=== PATIENT | male | born 1950 | race Caucasian/White ===

== ENCOUNTER 2023-10-08 19:37 | Inpatient (IN) | payer MEDICARE, SELFPAY ==
--- NOTE | 2023-10-08 | ECG_ITS ---
Test Reason : SOB Blood Pressure : / mmHG Vent. Rate : 076 BPM Atrial Rate : 076 BPM P-R Int : 188 ms QRS Dur : 100 ms QT Int : 418 ms P-R-T Axes : 008 047 045 degrees QTc Int : 470 ms Sinus rhythm with occasional Premature ventricular complexes Otherwise normal ECG No previous ECGs available Referred By: Generic ED Physician Electronically Signed By:PINKY PHILIP MD
--- NOTE | ~2023-10-08 | CT_ITS ---
EXAMINATION: CT ABDOMEN AND PELVIS WITH CONTRAST CLINICAL INFORMATION: Left lower quadrant pain. COMPARISON: None available. TECHNIQUE: Multidetector volumetric images were obtained from the superior aspect of the liver through the pubic symphysis following administration 85 mL of Omnipaque 350 intravenous contrast. Sagittal and coronal reformatted images were obtained on the technologist's workstation. Oral contrast: No This CT examination was performed using dose optimization techniques as appropriate, variously including the following: *Automated exposure control *Adjustment of mA and/or kV according to patient size (this includes techniques or standardized protocols for targeted exams where dose is matched to indication/reason for exam; i.e. extremities or head) *Use of iterative reconstruction technique DLP: 709 mGy-cm FINDINGS: LUNG BASES: Moderate hiatal hernia. LIVER, GALLBLADDER, AND BILIARY TREE: The liver is normal in size. No focal hepatic lesion or biliary ductal dilatation is present. The gallbladder is unremarkable with no evidence of radiopaque gallstones, gallbladder wall thickening, or obvious pericholecystic inflammatory changes. PANCREAS: 1.6 x 1.7 cm cystic lesion in the tail the pancreas. No ductal dilatation. SPLEEN: Not enlarged. ADRENAL GLANDS: No adrenal mass. KIDNEYS AND URETERS: The kidneys are symmetric in size and enhancement. No hydronephrosis or perinephric fluid collection. 2.8 x 3.0 cm upper pole left renal cyst. No further imaging follow-up is needed. BLADDER: Unremarkable. GASTROINTESTINAL TRACT: There is dilatation of small bowel loops in the midabdomen measuring up to 3.3 cm with interloop fluid and flocculation of contrast. The transition appears to be in the right lower quadrant. Small abdominopelvic ascites. The colon is relatively decompressed. Diverticular disease of the descending and sigmoid colon. ABDOMINAL WALL: No significant hernia is appreciated. LYMPH NODES: No bulky lymphadenopathy. VASCULAR: Normal caliber abdominal aorta. PELVIC VISCERA: Enlarged prostate gland. OSSEOUS STRUCTURES: No destructive bone lesions. CT/CT abdomen pelvis w IV con IMPRESSION: Small bowel obstruction with interloop fluid flocculation of contrast. There is small abdominopelvic ascites. The transition appears to be in the right lower quadrant. 1.6 x 1.7 cm cystic lesion in the tail the pancreas. MRI/MRCP is recommended for further characterization. Electronically signed by: Michelet Yanes MD 11/27/2023 09:56 AM EDT
--- NOTE | ~2023-10-08 | XR_ITS ---
EXAMINATION: XR CHEST CLINICAL INFORMATION: Nasogastric tube placement. COMPARISON: None available. TECHNIQUE: AP portable view of the chest was obtained. FINDINGS: Enteric catheter seen traversing into the stomach with sidehole below the diaphragm. Heart normal size. No evidence of pulmonary edema. No pneumothorax or pleural effusion. Discoid atelectasis or scar is seen about the mid left lung. XR/XR chest 1V IMPRESSION: Nasogastric tube in place. No acute disease.
[2023-10-08 19:52] VITALS: PULSE 74; RESP 16; TEMP 36.2; O2SAT 100; BMI 28.8
[2023-10-08 20:16] LABS: MANUAL DIFF FLAG NO
[2023-10-08 20:17] LABS: Basophils Percent Auto 0.2 % (0-2); Eosinophils Percent Auto 0.1 % (0-4); Hematocrit 37.5 % (42.0-52.0); Hemoglobin 13.3 g/dl (14.0-18.0); Imm Gran Abs Auto 0.04 X10*3/uL (0.00-0.03); Imm Gran Pct Auto 0.3 % (0.0-0.4); Lymphocytes Absolute Auto 1.4 X10*3/uL (1.2-4.9); Lymphocytes Percent Auto 9.9 % (20-40); Mean Corpuscular HGB Conc 35.5 g/dl (31.0-36.0); Mean Corpuscular Hemoglobin 33.5 pg (27.0-33.0); Mean Corpuscular Volume 94.5 fL (80.0-98.0); Mean Platelet Volume 9.6 fL (9.4-12.4); Monocytes Absolute Auto 0.5 X10*3/uL (0.1-1.2); Monocytes Percent Auto 3.6 % (2-11); Neutrophils Absolute Auto 12.1 x10*3/uL (2.0-8.3); Neutrophils Percent Auto 85.9 % (45-73); Platelet Count 233 X10*3/uL (160-400); Red Blood Count 3.97 X10*6/uL (4.60-5.80); Red Cell Distribution Width 13.6 % (11.0-16.0)
[2023-10-08 20:41] LABS: Alanine Aminotransferase 18 U/L (0-40); Albumin Level 4.3 g/dL (3.5-5.0); Alkaline Phosphatase 50 U/L (39-117); Anion Gap 18 (12-20); Aspartate Amino Transferase 23 U/L (5-37); Bilirubin Direct 0.3 mg/dL (0.0-0.5); Bilirubin Total 0.7 mg/dL (0.0-1.0); Blood Urea Nitrogen 27 mg/dL (9-16); Calcium 10.2 mg/dL (8.4-10.2); Carbon Dioxide 21 mmol/L (22-29); Chloride 105 mmol/L (96-108); Creatinine Clr Calc Pharmacy 69.9; Estimated Glomerular Filt Rate > 60; Glucose Random 124 mg/dL (60-115); Lipase 25 U/L (8-78); Sodium 140 mmol/L (135-145); Total Protein 7.2 g/dL (6.5-8.0)
--- NOTE | 2023-10-08 23:34 | ED_ITS ---
HPI - Abdominal Pain General Chief Complaint: Abdominal Pain Stated Complaint: Abd pain Time Seen by Provider: 10/08/23 23:27 Source: patient Mode of arrival: ambulatory Limitations: no limitations History of Present Illness ED Provider: danna LOPEZ narrative: Patient no significant abdominal complaints in the past had a elective right inguinal hernia surgery long time ago comes here for diffuse abdominal pain started yesterday around 1300 with nausea no vomiting had normal bowel movement earlier the day no fever no chills no shortness a breath patient does not feel hungry Related Data Allergies Allergy/AdvReac Type Severity Reaction Status Date / Time No Known Allergies Allergy Verified 10/08/23 19:54 Review of Systems Review of Systems Yes all other systems are reviewed and are negative [facility] Social History Social History Alcohol intake: current Alcohol intake frequency: holidays/special occasions only Smoked in Last 30 Days: No Use of substances other than those prescribed or required for medical reasons: Yes Substance Use Type: Marijuana Substance Use Frequency: Daily Advance Directives: No Advance Directives Information Provided: Yes Do you have a plan to hurt others: No Plan Physical Exam ED Vital Signs: Vital Signs - 24 hr 10/08/23 19:52 10/09/23 00:32 10/09/23 02:35 Temperature 97.2 F 98.3 F 98.4 F Pulse Rate 74 77 74 Respiratory Rate 16 16 16 Blood Pressure 157/79 H 150/75 H Pulse Oximetry 100 98 98 Oxygen Delivery Method Room Air Room Air Room Air 10/09/23 05:51 Temperature 98.1 F Pulse Rate 79 Respiratory Rate 16 Blood Pressure 146/71 H Pulse Oximetry 97 Oxygen Delivery Method Room Air BMI result Body Mass Index 28.8 Appearance: Alert. Oriented X3. No acute distress. Eyes: No pallor or icterus ENT: Pharynx normal. Oral Mucosa moist Neck: Normal inspection. Neck supple. CVS: Normal heart rate and rhythm. Pulses normal. Respiratory: No respiratory distress. Equal air entry bilateral, no wheezing/rales/rhonchi Abdomen: Soft and diffuse tenderness lower abdomen no rebound tenderness or guarding Bowel sounds are sluggish, no mass palpable, no CVA tenderness no inguinal hernia palpable Skin: Skin warm and dry. Normal skin color. Normal skin turgor. Extremities: No lower extremity edema. No calf tenderness Neuro: Oriented X 3. Medical Decision Making Medical Decision Making [facility] Narrative: Patient with acute onset of diffuse abdominal pain workup showed small bowel dilatation in the CT scan mainly in the ileum area but not distal ileum Is decompressed NG-tube placed only clear liquid 200 cc came out case discussed Dr. Clemens surgeon will come and see the patient Differential Diagnosis Differential Diagnoses: The differential diagnosis associated with the presentation includes Pancreatitis/small-bowel obstruction/ileus/ Admission/Observation Consideration of admission/observation: Escalation of care including admission/observation considered Lab Data [facility] Lab Attestation statement: I reviewed the patient's lab results. 10/08/23 20:11 10/08/23 20:11 Labs: Lab Results 10/08/23 10/09/23 Range/Units 20:11 05:44 WBC 14.0 H (4.8-10.8) X10*3/uL RBC 3.97 L (4.60-5.80) X10*6/uL Hgb 13.3 L (14.0-18.0) g/dl Hct 37.5 L (42.0-52.0) % MCV 94.5 (80.0-98.0) fL MCH 33.5 H (27.0-33.0) pg MCHC 35.5 (31.0-36.0) g/dl RDW 13.6 (11.0-16.0) % Plt Count 233 (160-400) X10*3/uL MPV 9.6 (9.4-12.4) fL Immature Gran % (Auto) 0.3 (0.0-0.4) % Neut % (Auto) 85.9 H (45-73) % Lymph % (Auto) 9.9 L (20-40) % [place] % (Auto) 3.6 (2-11) % Eos % (Auto) 0.1 (0-4) % Baso % (Auto) 0.2 (0-2) % Lymph # (Auto) 1.4 (1.2-4.9) X10*3/uL [place] # (Auto) 0.5 (0.1-1.2) X10*3/uL Eos # (Auto) 0.0 (0.0-0.4) X10*3/uL Baso # (Auto) 0.0 (0.0-0.2) X10*3/uL Abs Immat Gran (auto) 0.04 H (0.00-0.03) X10*3/uL Absolute Neuts (auto) 12.1 H (2.0-8.3) x10*3/uL Absolute Nucleated RBC 0.000 (0.0-0.012) X10*3/uL Nucleated RBC % (auto) 0.0 (0.0-0.2) /100WBC Sodium 140 (135-145) mmol/L Potassium 4.0 (3.3-5.1) mmol/L Chloride 105 (96-108) mmol/L Carbon Dioxide 21 L (22-29) mmol/L Anion Gap 18 (12-20) BUN 27 H (9-16) mg/dL Creatinine 1.02 (0.5-1.4) mg/dL Estim Creat Clear Calc 69.9 Estimated GFR > 60 Random Glucose 124 H (60-115) mg/dL Lactic Acid 1.1 (0.5-2.0) mmol/L Calcium 10.2 (8.4-10.2) mg/dL Total Bilirubin 0.7 (0.0-1.0) mg/dL Direct Bilirubin 0.3 (0.0-0.5) mg/dL AST 23 (5-37) U/L ALT 18 (0-40) U/L Alkaline Phosphatase 50 (39-117) U/L Total Protein 7.2 (6.5-8.0) g/dL Albumin 4.3 (3.5-5.0) g/dL Lipase 25 (8-78) U/L Independent Interpretation I performed an independent interpretation of an: EKG and CT Scan Interpretation: Normal sinus rhythm heart rate 76 beats per minute occasional PVCs no acute ST-T changes no acute ischemia Radiology Impression Discussion of test interpretation with radiology: I have reviewed the radiologist's reading. Medications Administered Discontinued Medications Generic Name Dose Route Start Last Admin Trade Name Freq PRN Reason Stop Dose Admin Sodium Chloride 1,000 mls @ 999 mls/hr 10/09/23 00:33 10/09/23 03:44 Ns IV 10/09/23 01:33 Infused .Q1H1M ONE Infusion Morphine Sulfate 4 mg 10/09/23 00:33 10/09/23 01:13 Morphine Sulfate 4 Mg/Ml Cartridge IVPUSH 10/09/23 00:34 4 mg ONCE ONE Administration Protocol Morphine Sulfate 4 mg 10/09/23 06:06 10/09/23 06:22 Morphine Sulfate 4 Mg/Ml Cartridge IVPUSH 10/09/23 06:07 4 mg ONCE ONE Administration Protocol Ondansetron HCl 4 mg 10/09/23 00:33 10/09/23 01:12 Ondansetron Hcl 4 Mg/2 Ml Vial IVPUSH 10/09/23 00:34 4 mg ONCE ONE Administration Ondansetron HCl 4 mg 10/09/23 06:19 10/09/23 06:32 Ondansetron Hcl 4 Mg/2 Ml Vial IVPUSH 10/09/23 06:20 4 mg ONCE ONE Administration Discharge Plan Discharge Clinical Impression: Small bowel obstruction Patient Disposition: Admitted As Inpatient Print Language: Lithuanian
[2023-10-09] VITALS (16 sets, daily range): BP systolic 120–160; BP diastolic 68–89; PULSE 74–93; RESP 16–20; TEMP 36.3–37.3; O2SAT 96–100
[2023-10-09] MEDS: ondansetron HCL 4 MG/2 ML VIAL IVPUSH ×3 (01:12→12:19)
[2023-10-09] MEDS: Morphine Sulfate 4 MG/ML CARTRIDGE IVPUSH ×2 (01:13→06:22)
[2023-10-09] MEDS: 0.9 % Sodium Chloride 1,000 ML 999 ML IV (01:13)
[2023-10-09 06:22] LABS: Lactic Acid 1.1 mmol/L (0.5-2.0)
[2023-10-09] MEDS: iohexoL 350 MG/ML 100 ML INFUS..BTL IV (08:20)
--- NOTE | 2023-10-09 09:41 | PHA.MEDREC ---
Pharmacy Consult ? Medication Reconciliation Pharmacy has completed the medication reconciliation. Spoke to patient around 08:40 this morning, he wasn't sure what he was taking for meds but he stated he goes to the [facility] in [place]. I faxed over a request of his medications around 09:00 and still haven't received anything.
--- NOTE | 2023-10-09 10:16 | PHA.MEDREC ---
Pharmacy Consult ? Medication Reconciliation Pharmacy has completed the medication reconciliation. [facility]
--- NOTE | 2023-10-09 11:10 | PC.NURSE ---
rpeort recieved from previous RN, patient resting comfortably on stretcher, NG tube attached to intermittent wall suction, draining clear fluid at this time. patient endorsing some discomfort, awaiting surgical consult at this time
[2023-10-09] MEDS: Lactated Ringers 1,000 ML 125 ML IVCONT (11:24)
[2023-10-09] MEDS: Lactated Ringers 1,000 ML 100 ML IVCONT ×2 (12:17→16:00)
[2023-10-09] MEDS: HYDROmorphone HCl 1 MG/ML SYRINGE 0.5 MG IVPUSH (12:21)
--- NOTE | 2023-10-09 13:14 | PC.NURSE ---
report given to short stay surgery
--- NOTE | 2023-10-09 13:29 | P.HPGS_ITS ---
History of Present Illness History of Present Illness Date of Service: 10/09/23 Chief complaint: SBO Narrative: Prieto Olivares is a 72 year old male with PMH significant for HTN, hyperlipidemia, gout who presented to the ED with complaints of acute onset of abdominal pain. He developed diffuse abdominal pain yesterday afternoon. The pain was associated with nausea without vomiting. He had a normal BM earlier in the day but has since not passed flatus or BM. He denies fever, chills, diarrhea, sick contacts. He denies similar episodes of pain. Due to the severity, he presented to the ED for evaluation. Work up included CBC, BMP, LFTs which was significant for a leukocytosis of 14. Lactic acid was normal. CT scan abd/pelvis was obtained which showed dilated small bowel loops with concern for internal hernia. NGT was inserted. He has a distant history of right inguinal hernia repair. He denies any other abdominal surgery. Review of Systems Constitutional: Constitutional: Denies chills and Denies fever(s) ENT: Denies dizziness Cardiovascular: Cardiovascular: Denies chest pain and Denies dyspnea Respiratory: Respiratory: Denies dyspnea Gastrointestinal: Gastrointestinal: Reports as per HPI Genitourinary: Genitourinary: Denies hematuria and Denies dysuria Integumentary/Breasts: Skin/Breast: Denies rash and Denies jaundice Neurologic: Denies dizziness [facility] Social History Social History Alcohol intake: current Alcohol intake frequency: holidays/special occasions only Smoked in Last 30 Days: No Use of substances other than those prescribed or required for medical reasons: Yes Substance Use Type: Marijuana Substance Use Frequency: Daily Advance Directives: No Advance Directives Information Provided: Yes Do you have a plan to hurt others: No Plan Meds Allergies Allergy/AdvReac Type Severity Reaction Status Date / Time No Known Allergies Allergy Verified 10/08/23 19:54 Active Medications: Current Medications Acetaminophen (Acetaminophen 325 Mg Tablet) 650 mg PO Q6H PRN PRN Reason: Pain, Mild (Pain Scale 1-3), fever or headache Calcium Carbonate (Calcium Carbonate 750 Mg Tab.Chew) 750 mg PO Q4H PRN PRN Reason: Heartburn Hydromorphone HCl (Hydromorphone Hcl 1 Mg/Ml Syringe) 0.5 mg IVPUSH Q4H PRN; Protocol PRN Reason: Pain, Severe (Pain Scale 7-10) Last Admin: 10/09/23 12:21 Dose: 0.5 mg Lactated Ringer's (Lr) 1,000 mls @ 125 mls/hr IVCONT .Q8H [facility] Last Infusion: 10/09/23 12:17 Dose: Infused Lactated Ringer's (Lr) 1,000 mls @ 100 mls/hr IVCONT .Q10H [facility] Last Admin: 10/09/23 12:17 Dose: 100 mls/hr Cefazolin Sodium/Dextrose (Ancef) 2 gm in 50 mls @ 100 mls/hr IV PREOP ONE Stop: 10/09/23 13:35 Latanoprost (Latanoprost 0.005 % Ophth Priscilla 2.5 Ml Drops) 1 drop EYE-BOTH DAILY [facility] Magnesium Hydroxide (Milk Of Magnesia 30 Ml Oral.Susp) 30 ml PO DAILY PRN PRN Reason: Constipation Melatonin (Melatonin 3 Mg Tablet) 6 mg PO BEDTIME PRN PRN Reason: Insomnia Ondansetron HCl (Ondansetron Hcl 4 Mg/2 Ml Vial) 4 mg IVPUSH Q8H PRN PRN Reason: Nausea and Vomiting Last Admin: 10/09/23 12:19 Dose: 4 mg Sodium Chloride (0.9 % Sodium Chloride Flush 3 Ml Syringe) [facility]ations ?Medication ?Instructions ?Recorded ?Confirmed ?Last Taken ?Type allopurinol 300 mg tablet 300 mg PO DAILY 10/09/23 10/09/23 Unknown History amlodipine 10 mg tablet 10 mg PO DAILY 10/09/23 10/09/23 Unknown History atorvastatin 20 mg tablet 10 mg PO DAILY 10/09/23 10/09/23 Unknown History hydrochlorothiazide 25 mg tablet 25 mg PO DAILY 10/09/23 10/09/23 Unknown History latanoprost 0.005 % eye drops 1 drp ophthalmic (eye) DAILY 10/09/23 10/09/23 Unknown History lisinopril 40 mg tablet 40 mg PO DAILY 10/09/23 10/09/23 Unknown History Physical Exam Vital Signs: Vital Signs: Last Vital Signs Temp 98.9 F 10/09/23 11:33 Pulse 86 10/09/23 11:33 Resp 18 10/09/23 11:33 BP 120/74 10/09/23 11:33 Pulse Ox 100 10/09/23 11:33 O2 Del Method Room Air 10/09/23 11:33 BMI result Body Mass Index 28.8 Const: General: comfortable, no acute distress and alert Orientation/consciousness: patient oriented x3 Resp: Effort & Inspection: normal respiratory effort GI: Inspection: Yes distended and No visible herniation Palpation (GI): Soft to palpation, Tenderness to palpation present (GI) (mild periumbical tenderness) with no rebound tenderness, no guarding and not rigid Percussion: Yes tympanic to percussion Skin: General skin exam: no rashes or lesions noted Neuro: General: patient oriented x3 and moves all extremities Results Results Labs: Short CBC 10/08/23 Range/Units 20:11 WBC 14.0 H (4.8-10.8) X10*3/uL Hgb 13.3 L (14.0-18.0) g/dl Hct 37.5 L (42.0-52.0) % Plt Count 233 (160-400) X10*3/uL BMP 10/08/23 20:11 Sodium 140 Potassium 4.0 Chloride 105 Carbon Dioxide 21 L BUN 27 H Creatinine 1.02 Calcium 10.2 Liver Function 10/08/23 Range/Units 20:11 Total Bilirubin 0.7 (0.0-1.0) mg/dL Direct Bilirubin 0.3 (0.0-0.5) mg/dL AST 23 (5-37) U/L ALT 18 (0-40) U/L Alkaline Phosphatase 50 (39-117) U/L Albumin 4.3 (3.5-5.0) g/dL Abdomen CT scan report/results: report reviewed and image reviewed Assessment and Plan (1) Small bowel obstruction: Status: Acute Plan 72 year old male with PMH of HTN, hyperlipidemia presenting with acute onset of severe diffuse abdominal pain and nausea with leukocytosis and CT scan abd/pelvis showing dilated small bowel loops concerning for internal hernia. Patient is actually clinically appearing well however CT scan is very concerning given degree of dilation on an essentially virgin abdomen. It was therefore recommended to proceed with laparotomy to evaluate further. NGT has been inserted, can continue for decompression, IVF. Patient is in agreement. Will add onto the OR schedule for today. Quality Stroke Does the patient have a stroke diagnosis?: No VTE Prior VTE?: No VTE Risk Level:: Surgical - low VTE Device Contraindication: Treatment Not Indicated VTE Drug Contraindication: Treatment Not Indicated Procedures Date of Service Date of Service: 10/09/23
[2023-10-09] MEDS: Lactated Ringers 1,000 ML 80 ML IVCONT (13:53)
--- NOTE | 2023-10-09 14:00 | P.CONAN_ITS ---
HPI - Anesthesia Eval Consult details Narrative: 72 yo M with HTN, HLD, gout admitted with SBO. PMF Active Problems Active Problems: All Active Problems Small bowel obstruction (Acute) Family History Family history of problems with anesthesia: No Surgical History History of Problems with Anesthesia: No Social History Social History Alcohol intake: current Alcohol intake frequency: a few times a week Patient Tobacco Use Status: Never used Tobacco Smoked in Last 30 Days: No Second Hand Smoke Exposure: No Use of substances other than those prescribed or required for medical reasons: Yes Substance Use Type: Marijuana Substance Use Frequency: Daily Are you DNR?: No Advance Directives: No Advance Directives Information Provided: Yes Advance Directives on File: No Do you have a plan to hurt others: No Plan Meds Allergies Allergy/AdvReac Type Severity Reaction Status Date / Time No Known Allergies Allergy Verified 10/08/23 19:54 Active Medications: Current Medications Acetaminophen (Acetaminophen 325 Mg Tablet) 650 mg PO Q6H PRN PRN Reason: Pain, Mild (Pain Scale 1-3), fever or headache Calcium Carbonate (Calcium Carbonate 750 Mg Tab.Chew) 750 mg PO Q4H PRN PRN Reason: Heartburn Hydromorphone HCl (Hydromorphone Hcl 1 Mg/Ml Syringe) 0.5 mg IVPUSH Q4H PRN; Protocol PRN Reason: Pain, Severe (Pain Scale 7-10) Last Admin: 10/09/23 12:21 Dose: 0.5 mg Lactated Ringer's (Lr) 1,000 mls @ 125 mls/hr IVCONT .Q8H [facility] Last Infusion: 10/09/23 12:17 Dose: Infused Lactated Ringer's (Lr) 1,000 mls @ 100 mls/hr [facility] Last Admin: 10/09/23 12:17 Dose: 100 mls/hr Lactated Ringer's (Lr) 1,000 mls @ 80 mls/hr IVCONT .[id number] [facility] Last Admin: 10/09/23 13:53 Dose: 80 mls/hr Latanoprost (Latanoprost 0.005 % Ophth Priscilla 2.5 Ml Drops) 1 drop EYE-BOTH DAILY [facility] Magnesium Hydroxide (Milk Of Magnesia 30 Ml Oral.Susp) 30 ml PO DAILY PRN PRN Reason: Constipation Melatonin (Melatonin 3 Mg Tablet) 6 mg PO BEDTIME PRN PRN Reason: Insomnia Ondansetron HCl (Ondansetron Hcl 4 Mg/2 Ml Vial) 4 mg IVPUSH Q8H PRN PRN Reason: Nausea and Vomiting Last Admin: 10/09/23 12:19 Dose: 4 mg Sodium Chloride (0.9 % Sodium Chloride Flush 3 Ml Syringe) 3 ml IVFLUSH [facility] Medications ?Medication ?Instructions ?Recorded ?Confirmed ?Last Taken ?Type allopurinol 300 mg tablet 300 mg PO DAILY 10/09/23 10/09/23 Unknown History amlodipine 10 mg tablet 10 mg PO DAILY 10/09/23 10/09/23 Unknown History atorvastatin 20 mg tablet 10 mg PO DAILY 10/09/23 10/09/23 Unknown History hydrochlorothiazide 25 mg tablet 25 mg PO DAILY 10/09/23 10/09/23 Unknown History latanoprost 0.005 % eye drops 1 drp ophthalmic (eye) DAILY 10/09/23 10/09/23 Unknown History lisinopril 40 mg tablet 40 mg PO DAILY 10/09/23 10/09/23 Unknown History Exam Exam Date and Time: October 09, 2023 135 Height,Weight and Vital Signs: Height 5 ft 9 in Weight 88.451 kg Last Vital Signs Temp 97.4 F 10/09/23 13:50 Pulse 92 10/09/23 13:55 Resp 20 10/09/23 13:55 BP 122/78 10/09/23 13:55 Pulse Ox 92 10/09/23 13:55 O2 Del Method Nasal Cannula 10/09/23 13:55 O2 Flow Rate 2 10/09/23 13:55 Pertinent Lab Results Pertinent Lab Results: Laboratory Tests 10/08/23 10/09/23 20:11 05:44 WBC 14.0 H RBC 3.97 L Hgb 13.3 L Hct 37.5 L MCV 94.5 MCH 33.5 H MCHC 35.5 RDW 13.6 Plt Count 233 MPV 9.6 Immature Gran % (Auto) 0.3 Neut % (Auto) 85.9 H Lymph % (Auto) 9.9 L [place] % (Auto) 3.6 Eos % (Auto) 0.1 Baso % (Auto) 0.2 Lymph # (Auto) 1.4 [place] # (Auto) 0.5 Eos # (Auto) 0.0 Baso # (Auto) 0.0 Abs Immat Gran (auto) 0.04 H Absolute Neuts (auto) 12.1 H Absolute Nucleated RBC 0.000 Nucleated RBC % (auto) 0.0 Sodium 140 Potassium 4.0 Chloride 105 Carbon Dioxide 21 L Anion Gap 18 BUN 27 H Creatinine 1.02 Estim Creat Clear Calc 69.9 Estimated GFR > 60 Random Glucose 124 H Lactic Acid 1.1 Calcium 10.2 Total Bilirubin 0.7 Direct Bilirubin 0.3 AST 23 ALT 18 Alkaline Phosphatase 50 Total Protein 7.2 Albumin 4.3 Lipase 25 Airway Mallampati Class: II TM Dist: >3cm Neck ROM: Full Denture: Upper Loose/Missing/Broken Teeth: Yes (poor dentition on bottom jaw) Heart: S1S2 Lungs: CTAB Assessment and Plan Assessment Anesthesia Assessment: Anesthesia Plan Discussed and Chart Reviewed Final Anesthetic Review Family History of Problems with Anesthesia: No History of Problems with Anesthesia: No NPO: Yes ASA Class: II and Emergency Final Preanesthetic Review: No Changes in Pt Med Stat, Meds/Allgs Chart Reviewed, Consent Obtained/Reviewed and Anes Risks/Benef Reviewed Patient Risk: Low Procedure Risk: Intermediate Anesthetic Plan Anesthetic Plan: GA, Regional Block (possible bilateral transversus abdominis plane block) and Agree w/ Assess. and Plan Disposition: Standard PACU
--- NOTE | 2023-10-09 15:17 | W.PM.OPN ---
Operative Note Operative Note Date of Service: 10/09/23 Narrative: Preoperative diagnosis: [] Complete small-bowel obstruction Postop diagnosis: [] The same Procedure [] Exploratory laparotomy, enterolysis Surgeon: [] Sarath Mandarin Chinese Teacher: [] Meenu Type of Anesthesia: [] General Indication for surgery: [] Patient had complete small bowel obstruction. Intraoperative findings demonstrated a single adhesive band at the distal small bowel/ileum which was uneventfully lysed. Bowel was run in its entirety along with the large bowel and no other pathology demonstrated. Findings: [] Patient brought to the operating room, placed on operative table supine position, after an adequate level of general anesthesia was induced, the patient's abdomen is prepped and draped in usual sterile fashion. Using a small midline infraumbilical incision, this carried down through skin, subcutaneous tissue, Abhijeet's fascia. Linea alba was opened using Bovie and posterior fascia and peritoneum were opened and extended along the length of the incision. Findings were as noted above. Single adhesive band of the distal ileum was demonstrated. This was uneventfully lysed. Proximal bowel was markedly dilated. Distal ileum was decompressed. Bowel was run as noted above and no other pathology demonstrated. Wound was closed in the following manner; mass closure using 1. Looped PDS was used to close the peritoneum fascia. Skin was closed using interrupted inverted dermal 3-0 Vicryl sutures followed by Steri-Strips and sterile dressings. Wound was infiltrated 0.5% Marcaine at completion. Sponge, needle, and instrument counts reported correct. Patient tolerated the procedure well and emerged from anesthesia stable condition. EBL minimal
[2023-10-09] MEDS: HYDROmorphone HCl 0.5 MG/0.5 ML SYRINGE IVPUSH ×2 (15:19→15:24)
[2023-10-09] MEDS: Acetaminophen 1,000 MG/100 ML PIGGYBACK 400 MG IV ×2 (16:00→21:43)
[2023-10-10] MEDS: Lactated Ringers 1,000 ML 100 ML IVCONT ×3 (01:31→21:42)
[2023-10-10 03:27] VITALS: BP 122/58; PULSE 73; RESP 18; TEMP 36.2; O2SAT 95
[2023-10-10] MEDS: Acetaminophen 1,000 MG/100 ML PIGGYBACK 400 MG IV ×4 (03:51→21:42)
[2023-10-10 06:41] LABS: MANUAL DIFF FLAG NO
[2023-10-10 06:49] LABS: Basophils Percent Auto 0.1 % (0-2); Eosinophils Percent Auto 0.1 % (0-4); Hematocrit 32.7 % (42.0-52.0); Hemoglobin 11.3 g/dl (14.0-18.0); Imm Gran Abs Auto 0.03 X10*3/uL (0.00-0.03); Imm Gran Pct Auto 0.4 % (0.0-0.4); Lymphocytes Percent Auto 13.2 % (20-40); Mean Corpuscular HGB Conc 34.6 g/dl (31.0-36.0); Mean Corpuscular Hemoglobin 33.4 pg (27.0-33.0); Mean Corpuscular Volume 96.7 fL (80.0-98.0); Mean Platelet Volume 9.9 fL (9.4-12.4); Monocytes Absolute Auto 0.5 X10*3/uL (0.1-1.2); Monocytes Percent Auto 6.8 % (2-11); Neutrophils Percent Auto 79.4 % (45-73); Platelet Count 191 X10*3/uL (160-400); Red Blood Count 3.38 X10*6/uL (4.60-5.80); Red Cell Distribution Width 13.9 % (11.0-16.0); White Blood Count 7.5 X10*3/uL (4.8-10.8)
[2023-10-10 07:01] VITALS: BP 121/57; PULSE 67; RESP 17; TEMP 36.7; O2SAT 95
[2023-10-10 07:43] LABS: Anion Gap 12 (12-20); Blood Urea Nitrogen 21 mg/dL (9-16); Carbon Dioxide 22 mmol/L (22-29); Chloride 107 mmol/L (96-108); Creatinine Clr Calc Pharmacy 82.9; Estimated Glomerular Filt Rate > 60; Glucose Fasting 102 mg/dL (60-99); Potassium 3.8 mmol/L (3.3-5.1); Sodium 137 mmol/L (135-145)
[2023-10-10 07:48] LABS: Calcium 8.4 mg/dL (8.4-10.2)
--- NOTE | 2023-10-10 08:59 | PM.PNGS ---
Subjective Subjective Date of Service: 10/10/23 Interval history: Reports incisional pain but does feel improved from yesterday; no nausea or vomiting. No flatus or BM. Physical Exam Vital Signs: Vital Signs: Last Vital Signs Temp 98.1 F 10/10/23 07:01 Pulse 67 10/10/23 07:01 Resp 17 10/10/23 07:01 BP 121/57 L 10/10/23 07:01 Pulse Ox 95 10/10/23 07:01 O2 Del Method Room Air 10/10/23 07:01 O2 Flow Rate 2 10/09/23 16:00 BMI result Body Mass Index 28.8 Const: General: no acute distress Nutritional Appearance: well nourished Orientation/consciousness: patient oriented x3 Resp: Effort & Inspection: normal respiratory effort, no audible wheezes, no cough and no respiratory distress GI: Other: Abdominal incision dressings with some bloody discharge otherwise clean and intact. Abdomen softly distended. Skin: Other: Warm, dry, no rash Neuro: General: patient oriented x3 Extrem: Other: No edema Objective Data Active Medications Calcium Carbonate (Calcium Carbonate 750 Mg Tab.Chew) 750 mg PO Q4H PRN PRN Reason: Heartburn Hydromorphone HCl (Hydromorphone Hcl 1 Mg/Ml Syringe) 0.5 mg IVPUSH Q4H PRN; Protocol PRN Reason: Pain, Severe (Pain Scale 7-10) Last Admin: 10/09/23 12:21 Dose: 0.5 mg Documented By: ASHVIN Lactated Ringer's (Lr) 1,000 mls @ 100 mls/hr IVCONT .Q10H [facility] Last Admin: 10/10/23 01:31 Dose: 100 mls/hr Documented By: HENRIQUE Acetaminophen (Ofirmev) 1,000 mg in 100 mls @ 400 mls/hr IV Q6H [facility] Last Admin: 10/10/23 08:52 Dose: 400 mls/hr Documented By: JIM Latanoprost (Latanoprost 0.005 % Ophth Priscilla 2.5 Ml Drops) 1 drop EYE-BOTH DAILY [facility] Magnesium Hydroxide (Milk Of Magnesia 30 Ml Oral.Susp) 30 ml PO DAILY PRN PRN Reason: Constipation Melatonin (Melatonin 3 Mg Tablet) 6 mg PO BEDTIME PRN PRN Reason: Insomnia Ondansetron HCl (Ondansetron Hcl 4 Mg/2 Ml Vial) 4 mg IVPUSH Q8H PRN PRN Reason: Nausea and Vomiting Last Admin: 10/09/23 12:19 Dose: 4 mg Documented By: ASHVIN Oxycodone HCl (Oxycodone Hcl Immed Release 5 Mg Tablet) 5 mg PO Q4H PRN PRN Reason: Pain, Moderate(Pain Scale 4-6) Sodium Chloride (0.9 % Sodium Chloride Flush 3 Ml Syringe) 3 ml IVFLUSH QSHIFT [facility] Last Admin: 10/10/23 08:16 Dose: Not Given Documented By: JIM Non-Admin Reason: IV Running Labs 10/10/23 05:48 10/10/23 05:52 Labs: Laboratory Results - last 24 hr 10/10/23 10/10/23 05:48 05:52 MCV 96.7 MCH 33.4 H MCHC 34.6 RDW 13.9 Plt Count 191 MPV 9.9 Immature Gran % (Auto) 0.4 Neut % (Auto) 79.4 H Lymph % (Auto) 13.2 L Grady % (Auto) 6.8 Eos % (Auto) 0.1 Baso % (Auto) 0.1 Lymph # (Auto) 1.0 L Grady # (Auto) 0.5 Eos # (Auto) 0.0 Baso # (Auto) 0.0 Abs Immat Gran (auto) 0.03 Absolute Neuts (auto) 6.0 Absolute Nucleated RBC 0.000 Nucleated RBC % (auto) 0.0 Anion Gap 12 Estim Creat Clear Calc 82.9 Estimated GFR > 60 Fasting Glucose 102 H Calcium 8.4 D Microbiology Microbiology Results: Microbiology 10/09/23 05:44 Blood Culture - Preliminary Blood - Venous No growth after 24 hours. 10/09/23 05:42 Blood Culture - Preliminary Blood - Venous No growth after 24 hours. Procedures Date of Service Date of Service: 10/10/23 Progress Note: A&P Assessment and plan (1) Small bowel obstruction: Status: Acute Plan Pod 1 following exploratory laparotomy and lysis of adhesions for small-bowel obstruction. He is hemodynamically stable and his wounds are clean and intact. We will start clear liquids today. Encouraged out of bed and ambulation, incentive spirometry. Time Spent With Patient Time: Total time managing care of this patient today ____ minutes. Quality Stroke Does the patient have a stroke diagnosis?: No VTE Prior VTE?: No VTE Risk Level:: Surgical - low VTE Device Contraindication: Treatment Not Indicated VTE Drug Contraindication: Treatment Not Indicated
--- NOTE | 2023-10-10 11:52 | HO.POSTANES ---
Post Anesthesia Evaluation Post Anesthesia Evaluation Date of Service: 10/09/23 Vital Signs: Vital Signs Temp Pulse Resp BP Pulse Ox O2 Del Method 10/10/23 07:01 98.1 F 67 17 121/57 L 95 Room Air 10/10/23 03:27 97.1 F 73 18 122/58 L 95 Room Air Anesthesia: General Endotracheal-GETA Mental Status: Awake Pain Control: Satisfactory Nausea/Vomiting: None Hydration: Adequate Anesthesia-Related Issues: No Anes. Related Issues
[2023-10-10 15:27] VITALS: BP 152/76; PULSE 69; RESP 18; TEMP 36.3; O2SAT 96
--- NOTE | 2023-10-10 15:27 | MHC.CM.PN ---
PT REPORTS HE LIVES WITH HIS AND IS INDEPENDENT WITH CARE PT HAS NO SERVICES AND USES A CANE PRN PT SAYS HE HAS A HCP, COPY REQUESTED PCP: TAE [facility] DELIVERED DCP: HOME NO SERVICES TO TRANSPORT
[2023-10-10 19:47] VITALS: BP 136/66; PULSE 63; RESP 18; TEMP 36.3; O2SAT 97
[2023-10-11 03:18] VITALS: BP 169/75; PULSE 65; RESP 18; TEMP 36.2; O2SAT 98
[2023-10-11] MEDS: Acetaminophen 1,000 MG/100 ML PIGGYBACK 400 MG IV ×2 (04:23→09:07)
[2023-10-11] MEDS: oxyCODONE HCl Immed Release 5 MG TABLET PO (04:27)
[2023-10-11 07:10] VITALS: BP 170/70; PULSE 69; RESP 17; TEMP 36.6; O2SAT 97
--- NOTE | 2023-10-11 07:46 | P.PNGS_ITS ---
Subjective Subjective Date of Service: 10/11/23 Interval history: Patient feels much improved this morning after bowel movement. Had a sudden large BM in bed but then had several smaller BMs which he had control. Abdomen feels much improved today. Physical Exam 2 Vital Signs: Vital Signs: Last Vital Signs Temp 98 F 10/11/23 07:10 Pulse 69 10/11/23 07:10 Resp 17 10/11/23 07:10 BP 170/70 H 10/11/23 07:10 Pulse Ox 97 10/11/23 07:10 O2 Del Method Room Air 10/11/23 07:10 O2 Flow Rate 2 10/09/23 16:00 BMI result Body Mass Index 28.8 Const: General: no acute distress Nutritional Appearance: well nourished Orientation/consciousness: patient oriented x3 Resp: Effort & Inspection: normal respiratory effort, no audible wheezes, no cough and no respiratory distress GI: Other: Soft and nondistended, active bowel sounds. Dressings removed, midline incision is clean and dry. Abdomen image: 1. Midline incision below umbilicus, clean dry and intact Skin: Other: Warm, dry, no rash Neuro: General: patient oriented x3 Extrem: Other: No edema Objective Data Active Medications Amlodipine Besylate (Amlodipine Besylate 10 Mg Tablet) 10 mg PO DAILY [facility]; Protocol Calcium Carbonate (Calcium Carbonate 750 Mg Tab.Chew) 750 mg PO Q4H PRN PRN Reason: Heartburn Hydrochlorothiazide (Hydrochlorothiazide 25 Mg Tablet) 25 mg PO DAILY [facility]; Protocol Hydromorphone HCl (Hydromorphone Hcl 1 Mg/Ml Syringe) 0.5 mg IVPUSH Q4H PRN; Protocol PRN Reason: Pain, Severe (Pain Scale 7-10) Last Admin: 10/09/23 12:21 Dose: 0.5 mg Documented By: ASHVIN Acetaminophen (Ofirmev) 1,000 mg in 100 mls @ 400 mls/hr IV Q6H [facility] Last Infusion: 10/11/23 04:51 Dose: Infused Documented By: DWAYNE Lactated Ringer's (Lr) 1,000 mls @ 100 mls/hr IVCONT .Q10H [facility] Last Admin: 10/10/23 21:42 Dose: 100 mls/hr Documented By: HENRIQUE Latanoprost (Latanoprost 0.005 % Ophth Priscilla 2.5 Ml Drops) 1 drop EYE-BOTH BEDTIME [facility] Last Admin: 10/10/23 21:48 Dose: Not Given Documented By: HENRIQUE Non-Admin Reason: Med Not Available Lisinopril (Lisinopril 40 Mg Tablet) 40 mg PO DAILY [facility]; Protocol Magnesium Hydroxide (Milk Of Magnesia 30 Ml Oral.Susp) 30 ml PO DAILY PRN PRN Reason: Constipation Melatonin (Melatonin 3 Mg Tablet) 6 mg PO BEDTIME PRN PRN Reason: Insomnia Ondansetron HCl (Ondansetron Hcl 4 Mg/2 Ml Vial) 4 mg IVPUSH Q8H PRN PRN Reason: Nausea and Vomiting Last Admin: 10/09/23 12:19 Dose: 4 mg Documented By: ASHVIN Oxycodone HCl (Oxycodone Hcl Immed Release 5 Mg Tablet) 5 mg PO Q4H PRN PRN Reason: Pain, Moderate(Pain Scale 4-6) Last Admin: 10/11/23 04:27 Dose: 5 mg Documented By: DWAYNE Sodium Chloride (0.9 % Sodium Chloride Flush 3 Ml Syringe) 3 ml IVFLUSH QSHIFT [facility] Last Admin: 10/11/23 01:13 Dose: Not Given Documented By: HENRIQUE Non-Admin Reason: IV Running Labs 10/10/23 05:48 10/10/23 05:52 Labs: Laboratory Results - last 24 hr 10/10/23 05:52 Calcium 8.4 D Microbiology Microbiology Results: Microbiology 10/09/23 05:44 Blood Culture - Preliminary Blood - Venous No growth after 24 hours. 10/09/23 05:42 Blood Culture - Preliminary Blood - Venous No growth after 24 hours. Procedures Date of Service Date of Service: 10/11/23 Progress Note: A&P Assessment and plan (1) Small bowel obstruction: Status: Acute Plan Pod 2 following exploratory laparotomy and lysis of adhesions for small-bowel obstruction. Large bowel movement overnight. Abdomen is soft and nondistended. Incision is clean and intact Will advance diet to regular Encouraged out of bed and ambulation. Time Spent With Patient Time: Total time managing care of this patient today ____ minutes. Quality Stroke Does the patient have a stroke diagnosis?: No VTE Prior VTE?: No VTE Risk Level:: Surgical - low VTE Device Contraindication: Treatment Not Indicated VTE Drug Contraindication: Treatment Not Indicated
[2023-10-11] MEDS: lisinopriL 40 MG TABLET PO (08:25)
[2023-10-11] MEDS: hydroCHLOROthiazide 25 MG TABLET PO (08:25)
[2023-10-11] MEDS: amLODIPine Besylate 10 MG TABLET PO (08:25)
--- NOTE | 2023-10-11 11:12 | MHC.CM.PN ---
PT WILL DC HOME TODAY WITH NO SERVICES VIA PRIVATE TRANSPORT
--- NOTE | 2023-10-13 12:05 | P.DS_ITS ---
DS: Providers Provider Date of Service: 10/11/23 Date of admission: 10/09/23 11:37 Date of discharge: 10/11/23 Primary care physician: FADUMO Nieves Attending physician on admission: José Antonio Clemens Attending physician on discharge: Maximo Perez DS: Diagnosis Discharge Diagnosis (1) Small bowel obstruction: Status: Acute DS: Summary Hospital Course Hospital Course: HPI AT ADMISSION: Prieto Olivares is a 72 year old male with PMH significant for HTN, hyperlipidemia, gout who presented to the ED with complaints of acute onset of abdominal pain. He developed diffuse abdominal pain yesterday afternoon. The pain was associated with nausea without vomiting. He had a normal BM earlier in the day but has since not passed flatus or BM. He denies fever, chills, diarrhea, sick contacts. He denies similar episodes of pain. Due to the severity, he presented to the ED for evaluation. Work up included CBC, BMP, LFTs which was significant for a leukocytosis of 14. Lactic acid was normal. CT scan abd/pelvis was obtained which showed dilated small bowel loops with concern for internal hernia. NGT was inserted. He has a distant history of right inguinal hernia repair. He denies any other abdominal surgery. HOSPITAL COURSE: He was admitted to the surgical service for further treatment of the SBO. His CT scan was very concerning given degree of dilation on an essentially virgin abdomen and it was therefore recommended to proceed with laparotomy to evaluate further. He was added onto the OR schedule for that day. On 10/09/23, exploratory laparotomy, enterolysis was performed by Dr. Clemens without complication. The patient tolerated the procedure well. His NGT was removed post operatively. He had an uncomplicated recovery course. His diet was advanced to clear liquids on POD #1 and then to solids on POD #2. His activity was increased. He had multiple large bowel movements. He was reassessed on POD #2 and felt well with good pain control and was tolerating a solid diet without nausea or vomiting. He had good GI function. His abdomen was benign with clean incisions. He was discharged to home on 10/11/23 in stable condition. He is to follow up in the office in 1 week. Status at Discharge Functional status at discharge: independent ambulation Overall status at discharge: patient is progressing back to baseline Time Attestation Discharge Coordination Time (in mins): 40 Quality: Safe Use of Opioids Does Pt have an Active Cancer Diagnosis on the Problem List?: No Quality: Stroke Does the patient have a stroke diagnosis?: No Physical Exam Vital Signs: Vital Signs: Last Vital Signs Temp 98 F 10/11/23 07:10 Pulse 69 10/11/23 07:10 Resp 17 10/11/23 07:10 BP 170/70 H 10/11/23 07:10 Pulse Ox 97 10/11/23 07:10 O2 Del Method Room Air 10/11/23 07:10 O2 Flow Rate 2 10/09/23 16:00 BMI result Body Mass Index 28.8 Const: General: comfortable, no acute distress and alert GI: Inspection: No distended and Yes incision (clean) Palpation (GI): Soft to palpation and Tenderness to palpation present (GI) (mild incisional) Skin: General skin exam: no rashes or lesions noted DS: Data Data Completed and Pending Labs on day of discharge: Preliminary micro results at discharge 10/09/23 05:42 Blood Culture - Preliminary Blood - Venous No growth after 48 hours. 10/09/23 05:44 Blood Culture - Preliminary Blood - Venous No growth after 48 hours. Discharge Plan Discharge Anticipated Discharge Date/Time: 10/11/23 10:37 Patient Disposition: Home, Self-Care Discharge Diagnosis: Small-bowel obstruction Referrals: José Antonio Clemens MD [Physician] - 1 Week Ray Brito PA [Primary Care Provider] - 1 Week Discharge Medications: New hydrocodone-acetaminophen 5-325 mg tablet 1 tab PO Q4-6H PRN (Reason: pain) Qty: 30 0RF Rx Instructions: Partial Fill upon patient request. Continued latanoprost 0.005 % Drops 1 drp OPHTHALMIC (EYE) DAILY atorvastatin 20 mg Tablet 10 mg PO DAILY amlodipine 10 mg Tablet 10 mg PO DAILY allopurinol 300 mg Tablet 300 mg PO DAILY hydrochlorothiazide 25 mg Tablet 25 mg PO DAILY lisinopril 40 mg Tablet 40 mg PO DAILY Discharge Orders: Discharge Order (Routine); Ordered 10/11/23 Ordered By: Maximo Perez Diet: Advance to usual diet Activity on Discharge: No heavy lifting Stand Alone Forms: Patient Portal Discharge page Print Language: Senegalese Activity Restrictions/Additional Instructions: Ice to wound 20 minutes several times today and tomorrow. May shower in 2 days. Remove outside dressing only. Leave Steri-Strips intact. No strenuous activities Care Plan Goals: Returned to baseline Health Concerns: Convalescence from surgery Plan of Treatment: Recovery Assessment: Stable Discharge Date/Time: 10/11/23 11:28
== END 2023-10-11 11:28 | disposition home or self-care (01) | DRG 337 ==
LOC: HO.ED 10-09 09:13 → HO.EDOVER 10-09 11:44 → HO.S3 10-09 15:11
PROVIDERS: Physician Assistant Surgical; Admitting Provider Surgery; Emergency Provider Internal Medicine; PCP Physician Assistant; Visit Provider Surgery
PROC: 0DNB0ZZ Release Ileum, Open Approach (ICD-10-PCS; CPT 49000; principal; 2023-10-09 14:20)
DX: K56.52 Intestinal adhesions [bands] with complete obstruction (principal); I10 Essential (primary) hypertension; E78.5 Hyperlipidemia, unspecified; Z79.899 Other long term (current) drug therapy
CPT/HCPCS: 36415; 71045; 74177; 80048; 80076; 83605; 83690; 85025; 87040; 93005; 99285; J0131; J0330; J0690; J1170; J2270; J2371; J2405; J2704; J2795; J3010; J7120; Q9967

== ENCOUNTER → 2023-10-08 20:12 | Outpatient (BNV) | payer MEDICARE, SELFPAY | PROVIDERS: Emergency Provider Internal Medicine; PCP Physician Assistant; Visit Provider Internal Medicine Cardiovascular Disease | DX: R06.02 Shortness of breath (principal) | CPT/HCPCS: 93010 ==

== ENCOUNTER → 2023-10-09 11:37 | Outpatient (BNV) | payer MEDICARE, SELFPAY | PROVIDERS: Admitting Provider Surgery; Emergency Provider Internal Medicine; PCP Physician Assistant; Visit Provider Physician Assistant Surgical | DX: K56.609 Unspecified intestinal obstruction, unspecified as to partial versus complete obstruction (principal) | CPT/HCPCS: 99024; 99212; 99222 ==

== ENCOUNTER → 2023-10-09 11:37 | Outpatient (BNV) | payer MEDICARE, SELFPAY | PROVIDERS: Admitting Provider Surgery; Emergency Provider Internal Medicine; PCP Physician Assistant; Visit Provider Surgery | DX: K56.52 Intestinal adhesions [bands] with complete obstruction (principal) | CPT/HCPCS: 44005 ==

== ENCOUNTER 2023-10-19 11:40 | Outpatient (AMB) | payer MEDICARE, SELFPAY ==
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
[2023-10-19 11:45] VITALS: PULSE 68; BMI 28.9
== END 2023-10-19 11:51 | disposition home or self-care (01) ==
PROVIDERS: PCP Physician Assistant; Visit Provider Surgery
DX: Z09 Encounter for follow-up examination after completed treatment for conditions other than malignant neoplasm (principal); Z98.890 Other specified postprocedural states
CPT/HCPCS: 99024

== ENCOUNTER → 2023-10-19 11:40 | Outpatient (BNVA) | payer MEDICARE, SELFPAY | PROVIDERS: PCP Physician Assistant; Visit Provider Surgery | DX: Z09 Encounter for follow-up examination after completed treatment for conditions other than malignant neoplasm (principal); Z98.890 Other specified postprocedural states | CPT/HCPCS: 99212 ==

== ENCOUNTER 2024-01-13 10:40 | Outpatient (REF) | payer OTHER, MEDICARE, SELFPAY ==
[2024-01-13] MEDS: gadobutroL 10 ML VIAL IVPUSH (11:45)
== END 2024-01-13 10:41 | disposition home or self-care (01) ==
LOC: HO.MRI 10:40
PROVIDERS: PCP Physician Assistant; Visit Provider Physician Assistant
DX: Q45.2 Congenital pancreatic cyst (principal)
CPT/HCPCS: 74183; A9585

== ENCOUNTER → 2024-01-13 11:00 | Outpatient (BNV) | payer OTHER, MEDICARE, SELFPAY | PROVIDERS: PCP Physician Assistant; Visit Provider Radiology Diagnostic Radiology | DX: K86.2 Cyst of pancreas (principal) | CPT/HCPCS: 74183 ==

== ENCOUNTER 2024-03-07 09:28 | Outpatient (AMB) | payer OTHER, MEDICARE, SELFPAY ==
--- OUTSIDE RECORDS SUMMARY | 2024-03-07 09:30 | XMS_ITS ---
Author Name [facility] Organization [facility] Address [address] [place] [address] Care Team Providers Care Director Of Culture Name Role Phone RAY TORRES Primary Care Provider Unavail able Insurance Providers: All historical and current Section Date Range: From patient's date of to the date document was created. This section includes the names of all active insurance providers for the patient. Insurance Provider Type of Coverage Plan Name Start of Policy Coverage End of Policy Coverage Group Number Member ID Insurance Provider's Telephone Number Policy Felix's Name Patient's Relationship to Policy Felix MEDICARE (WNR) MEDICARE (M) PART B Sep 21, 2015 PART B [id number] [phone] NENO ABBOTT JR PATIENT MEDICARE (WNR) MEDICARE (M) PART A Nov 21, 2013 PART A [id number] NENO ABBOTT JR PATIENT MEDICARE (WNR) MEDICARE (M) PART A Nov 21, 2013 PART A [id number] [phone] NENO ABBOTT PATIENT MEDICARE (WNR) MEDICARE (M) PART A Nov 21, 2013 PART A [id number] [phone] NENO ABBOTT JR PATIENT Selected Encounter This section includes the information on record at [facility] for the Encounter. Date/Time Encounter Type Encounter Description Reason Pro vider Source Dec 16, 2023 04:59 PM Outpatient Encounter [facility] CONS[facility] Encounter Template Text not used by [facility] Plan of Treatment: Future Appointments (+ 6 months) and Future Tests (+/- 45 days) The Plan of Treatment section includes future care activities for the patient [facility] This section includes future appointments and future orders which are active, pending or scheduled. Future Appointments This section includes appointments that were scheduled to occur 6 months from the date of the Encounter, up to a maximum of 20 appointments. The data comes from all [facility]. Appointment Date/Time Appointment Type Appointme nt Facility Name Jan 05, 2024 09:00 AM AMBULATORY - MEDICINE [facility] Jan 13, 2024 10:30 AM AMBULATORY MEDICINE [facility] Mar 07, 2024 10:30 AM AMBULATORY MEDICINE [facility] Active, Pending, and Scheduled Orders This section includes a listing of several types of active, pending, and scheduled orders, including clinic medications orders, diagnostic test orders, procedure orders and consult orders; where the start date of the order is 45 days before the date of the Encounter or 45 days after the date of theEncounter. The data comes from all [facility]. Test Date/Time Test Type Test Details Facility Name Dec 07, 2023 02:36 PM Consult Order COMM[facility]ITY [facility]ARE-GI GENERAL [facility] [employer] Dec 17, 2023 09:06 AM Consult Order [facility]ITY [facility]-MRI [facility] Dec 24, 2023 12:00 AM Laboratory - Chemi stry Order LIVER FUNCTION BLOOD (SST-SERUM) [facility] Dec 24, 2023 12:00 AM Laboratory - Chemi stry Order BASIC METABOLIC PANEL (fasting) BLOOD (SST-SERUM) [facility] Dec 24, 2023 12:00 AM Laboratory - Chemi stry Order LIPID PANEL FASTING BLOOD (SST-SERUM) [facility] Dec 24, 2023 12:00 AM Laboratory - Chemi stry Order URIC ACID BLOOD (SST-SERUM) [facility] Social History: Smoking Status (Most current) and Tobacco Use (All prior to encounter date) This section includes the most current, and the historical, smoking and tobacco- related health factors from the [facility] facility where the Encounter took place. Current Smoking Status This section includes the most current smoking, or tobacco-related health factor, from the ID facility where the Encounter took place. Date/Time Current Smoking Status Comment Facil ity Mar 05, 2023 01:21 PM VA-TOBACCO NEVER USED ID [facility] [place] [facility] Tobacco Use History This section includes a history of the smoking, or tobacco-related health factors, that were collected on or before the date of the Encounter. The data comes from the ID facility where the Encounter took place. Date/Time Smoking Status/Tobacco Use Comment F acility Dec 24, 2021 11:30 AM VA-TOBACCO NEVER USED ID [facility] [place] [facility] Dec 28, 2020 03:30 PM VA-TOBACCO NEVER USED ID [facility] [place] [facility] Dec 21, 2019 09:00 AM VA-TOBACCO FORMER USER ID [facility] [place] [facility] Dec 21, 2019 09:00 AM VA-TOBACCO QUIT 15 YRS OR MORE ID [facility] [place] [facility] May 18, 2018 08:51 AM VA-TOBACCO FORMER USER ID [facility] [place] [facility] May 18, 2018 08:51 AM VA-TOBACCO QUIT 15 YRS OR MORE [facility] [place] [facility] Nov 02, 2017 08:19 AM QUIT TOBACCO USE > 7 YEARS AGO [facility] [place] [facility] Nov 04, 2016 09:14 AM QUIT TOBACCO USE > 7 YEARS AGO ID [facility] [place] [facility] Sep 21, 2015 09:08 AM QUIT TOBACCO USE > 7 YEARS AGO . [facility] [place] [facility] Jan 17, 2013 02:27 PM QUIT TOBACCO USE > 7 YEARS AGO . [facility] [place] [facility] Encounter Notes: All associated encounter notes This section contains the clinical notes associated to the Encounter. Date/Time Encounter Note(s) Provider Source Dec 17, 2023 09:06 AM ADDENDUM: LOCAL TITLE: Addendum STANDARD TITLE: ADDENDUM DATE OF NOTE: DEC 17, 2023@09:06:13 ENTRY DATE: DEC 17, 2023@09:06:14 AUTHOR: RAY TORRES COSIGNER: URGENCY: STATUS: COMPLETED Case discussed with DR Araujo, MRI/MRCP ordered. Please follow and ensure this is done prior to his 01/24 GI consult. /carlos manuel/ Ray Torres PA-C STAFF PHYSICIAN WILDLIFE OFFICER Signed: 12/17/2023 09:06 Receipt Acknowledged By: 12/22/2023 07:36 /carlos manuel/ ROBIN BELLE RN REGISTERED NURSE === --- Original Document --- 12/16/23 ADMINISTRATIVE NOTE: 01/25/2024 @ 11:30 OFFICE VISIT ALERTING PACT: The earliest available appt for the CC-gi general, consult has Clinically Indicated Date: Nov based on the consult as written and supporting documentation; if appointment is not acceptable, community provider requests clinical justification by PACT to clinic call. Please see the consult for contact information. /jose OWENS CLINICAL SUPPORT TECH Signed: 12/16/2023 17:00 Receipt Acknowledged By: 12/17/2023 09:07 /carlos manuel/ Ray Torres PA-C STAFF PHYSICIAN WILDLIFE OFFICER 12/17/2023 08:33 /carlos manuel/ ROBIN BELLE RN REGISTERED NURSE RAY TORRES [facility] [place] [facility] Dec 16, 2023 04:59 PM ADMINISTRATIVE NOTE: LOCAL TITLE: ADMINISTRATIVE NOTE STANDARD TITLE: ADMINISTRATIVE NOTE DATE OF NOTE: DEC 16, 2023@16:59 ENTRY DATE: DEC 16, 2023@16:59:13 AUTHOR: AVTAR WOENS EXP COSIGNER: URGENCY: STATUS: COMPLETED ADMINISTRATIVE NOTE Has ADDENDA 01/25/2024 @ 11:30 OFFICE VISIT ALERTING PACT: The earliest available appt for the CC-gi general, consult has Clinically Indicated Date: Nov based on the consult as written and supporting documentation; if appointment is not acceptable, community provider requests clinical justification by PACT to clinic call. Please see the consult for contact information. /jose OWENS CLINICAL SUPPORT TECH Signed: 12/16/2023 17:00 Receipt Acknowledged By: 12/17/2023 09:07 /carlos manuel/ Ray Torres PA-C STAFF PHYSICIAN WILDLIFE OFFICER 12/17/2023 08:33 /carlos manuel/ ROBIN BELLE, RN REGISTERED NURSE 12/17/2023 ADDENDUM STATUS: COMPLETED Case discussed with DR Araujo, MRI/MRCP ordered. Please follow and ensure this is done prior to his 01/24 GI consult. /carlos manuel/ Ray Torres PA-C STAFF PHYSICIAN WILDLIFE OFFICER Signed: 12/17/2023 09:06 Receipt Acknowledged By: * AWAITING SIGNATURE * ROBIN BELLE [facility]
--- OUTSIDE RECORDS SUMMARY | 2024-03-07 09:30 | XMS_ITS | Encounter Summary ---
Author Name [facility] Organization [facility] Address [address] [place] [address] Care Team Providers Care Oncology Transplant Network Manager Name Role Phone AMADOR RICE Primary Care Provider Unavail able Insurance Providers: [...] PART B Sep 21, 2015 PART B [id number] NENO ABBOTT JR PATIENT MEDICARE (WNR) MEDICARE (M) PART A Nov 21, 2013 PART A [id number] [phone] NENO ABBOTT JR PATIENT MEDICARE (WNR) MEDICARE (M) PART A Nov 21, 2013 PART A [id number] [phone] NENO ABBTOT PATIENT MEDICARE (WNR) MEDICARE (M) PART A Nov 21, 2013 PART A [id number] [phone] NENO ABBOTT JR PATIENT Selected Encounter This section includes the information on record at [place] for the Encounter. Date/Time Encounter Type Encounter Description Reason Pro vider Source Dec 21, 2023 03:05 PM Outpatient Encounter [facility] Encounter Template Text not used by [facility] Plan of Treatment: Future Appointments (+ 6 months) and Future Tests (+/- 45 days) The Plan of Treatment section includes future care activities for the patient from all [place] [facility] This section includes future appointments and future orders which are active, pending or scheduled. Future Appointments This section includes appointments that were scheduled to occur 6 months from the date of the Encounter, up to a maximum of 20 appointments. The data comes from all [facility]. Appointment Date/Time Appointment Type Appointme nt Facility Name Jan 05, 2024 09:00 AM AMBULATORY - MEDICINE [facility] Jan 13, 2024 10:30 AM AMBULATORY MEDICINE [facility] Mar 07, 2024 10:30 AM AMBULATORY MEDICINE [facility] Active, Pending, and Scheduled Orders This section includes a listing of several types of active, pending, and scheduled orders, including clinic medications orders, diagnostic test orders, procedure orders and consult orders; where the start date of the order is 45 days before the date of the Encounter or 45 days after the date of theEncounter. The data comes from all [facility]. Test Date/Time Test Type Test Details Facility Name Dec 07, 2023 02:36 PM Consult Order [facility]-GI GENERAL Cons [facility] Dec 17, 2023 09:06 AM Consult Order [facility]-MRI Cons [facility] Dec 24, 2023 12:00 AM Laboratory - Chemi stry Order BASIC METABOLIC PANEL (fasting) BLOOD (SST-SERUM) [facility] Dec 24, 2023 12:00 AM Laboratory - Chemi stry Order LIVER FUNCTION BLOOD (SST-SERUM) [facility] Dec 24, 2023 12:00 AM Laboratory - Chemi stry Order URIC ACID BLOOD (SST-SERUM) [facility] Dec 24, 2023 12:00 AM Laboratory - Chemi stry Order LIPID PANEL FASTING BLOOD (SST-SERUM) [facility] Social History: Smoking Status (Most current) and Tobacco Use (All prior to encounter date) This section includes the most current, and the historical, smoking and tobacco- related health factors from the [place] facility where the Encounter took place. Current Smoking Status This section includes the most current smoking, or tobacco-related health factor, from the [place] facility where the Encounter took place. Date/Time Current Smoking Status Comment Facil ity Mar 05, 2023 01:21 PM [facility] [place] [facility] Tobacco Use History This section includes a history of the smoking, or tobacco-related health factors, that were collected on or before the date of the Encounter. The data comes from the [place] facility where the Encounter took place. Date/Time Smoking Status/Tobacco Use Comment F acility Dec 24, 2021 11:30 AM VA-TOBACCO NEVER USED [place] [facility] [place] [facility] Dec 28, 2020 03:30 PM VA-TOBACCO NEVER USED [place] [facility] [place] [facility] Dec 21, 2019 09:00 AM VA-TOBACCO FORMER USER [place] [facility] [place] [facility] Dec 21, 2019 09:00 AM VA-TOBACCO QUIT 15 YRS OR MORE [place] [facility] [place] [facility] May 18, 2018 08:51 AM VA-TOBACCO FORMER USER [place] [facility] [place] [facility] May 18, 2018 08:51 AM VA-TOBACCO QUIT 15 YRS OR MORE [place] [facility] [place] [facility] Nov 02, 2017 08:19 AM QUIT TOBACCO USE > 7 YEARS AGO [facility] [place] [facility] Nov 04, 2016 09:14 AM QUIT TOBACCO USE > 7 YEARS AGO [place] [facility] [place] [facility] Sep 21, 2015 09:08 AM QUIT TOBACCO USE > 7 YEARS AGO . [place] [facility] [place] [facility] Jan 17, 2013 02:27 PM QUIT TOBACCO USE > 7 YEARS AGO . [place] [facility] [place] [facility] Encounter Notes: All associated encounter notes This section contains the clinical notes associated to the Encounter. Date/Time Encounter Note(s) Provider Source Dec 21, 2023 03:06 PM LETTERS: LOCAL TITLE: PATIENT LETTER (B) STANDARD TITLE: LETTERS DATE OF NOTE: DEC 21, 2023@15:06 ENTRY DATE: DEC 21, 2023@15:06:44 AUTHOR: YANDY BUSH EXP COSIGNER: URGENCY: STATUS: COMPLETED Called and left message on voicemail. 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
--- OUTSIDE RECORDS SUMMARY | 2024-03-07 09:30 | XMS_ITS | Continuity of Care Document ---
Author Name [facility] Organization [facility] Care Team Providers Care Smoking Pipe Maker Name Role Phone [facility] Unavailable Unavailable Problems Combined list of problems from Department of Defense and Veterans Affairs facilities. It does not include entries that were removed or entered in error. Problem Status Onset Date Problem Type Date of Resolution Comments Source Small bowel obstruction Active 10/09/19 24 Condition Oct 10, 2023 Entered By: AISHA RICE Comment: Ex lap 10/09/2023 [facility] Tubular adenoma of colon Active 06/26/19 19 Condition Jun 29, 2018 Entered By: AISHA RICE Comment: One, on his 06/25/2018 colonoscopy. [facility] Diverticular disease of colon Active 03/23/19 03 Condition Mar 11, 2013 Entered By: AISHA RICE Comment: On 2002 and 2007 colonoscopy, One HP polyp each as well.Sep 27, 2013 Entered By: MICHAEL MEJIA Comment: Colonoscopy 07/2013 No polyps [facility] Benign hypertension Active Condition [facility] Exposure to potentially hazardous substance Active Condition [facility] Family history of cancer of colon Active Condition Mar 11, 2013 Entered By: AISHA RICE Comment: Father [facility] Gastroesophageal Reflux Disease Active Condition [facility] Glaucoma Active Condition [facility] Gout Active Condition [facility] Hepatitis C Active Condition Jan 18, 2001 Entered By: AISHA RICE Comment: Incidental pickup , combination therapy -.O ct 2019 Entered By: EMIL BOSTON Comment: Pt acheived SVR after 12 weeks of Vosevi in 2019 [facility] LOW BACK PAIN, LUMBAGO Active [facility] Obesity Active Condition [facility] Diagnosis: ICD-10-CM I10 Essential (primary) hypertension Active Diagnosis [facility] Diagnosis: ICD-10-CM Z77.29 Contact with and exposure to other hazardous substances Active Diagnosis [facility] Diagnosis: ICD-10-CM H40.1131 Primary open-angle glaucoma, bilateral, mild stage Active Diagnosis [facility] Diagnosis: ICD-10-CM I11.9 Hypertensive heart disease without heart failure Active Diagnosis [facility] Medications Combined list of outpatient medications from Department of Defense and Veterans Affairs facilities.Medications provided include 1) outpatient medications from the last 15 months, and 2) patient-reported medications. Medication Details Route Status Patient Instructions Prescription Expires Prescription Number Last Dispense Date Ordering Provider Order Date Order Qty Source ALLOPURINOL 300MG TAB TAKE ONE TABLET BY MOUTH DAILY FOR GOUT ORAL ACTIVE 10/20/2024 [id number] AMADOR RICE 2023 [facility] ALLOPURINOL 300MG TAB TAKE ONE TABLET BY MOUTH DAILY FOR GOUT ORAL DISCONT INUED 10/28/2023 [id number] AMADOR RICE 2022 90 [facility] AMLODIPINE BESYLATE 10MG TAB TAKE ONE TABLET BY MOUTH ONCE DAILY FOR BLOOD PRESSURE /HEART, DO NOT TAKE WITH GRAPEFRU IT JUICE ORAL DISCONT INUED (EDIT) 06/05/2024 [id number] AMADOR RICE 2023 [facility] AMLODIPINE BESYLATE 10MG TAB TAKE ONE TABLET BY MOUTH ONCE DAILY FOR BLOOD PRESSURE /HEART, DO NOT TAKE WITH GRAPEFRU IT JUICE ORAL DISCONT INUED 05/07/2023 [id number] AMADOR RICE 2022 90 [facility] AMLODIPINE BESYLATE 5MG TAB TAKE ONE TABLET BY MOUTH ONCE DAILY FOR BLOOD PRESSURE /HEART, DO NOT TAKE WITH GRAPEFRU IT JUICE ORAL ACTIVE 10/20/2024 [id number] AMADOR RICE 2023 90 [facility] ATORVASTATI N CA 20MG TAB TAKE ONE-HALF TABLET BY MOUTH DAILY FOR CHOLESTE ROL ORAL ACTIVE 10/20/2024 [id number] 4 AMADOR RICE 2023 45 [facility] ATORVASTATI N CA 20MG TAB TAKE ONE-HALF TABLET BY MOUTH DAILY FOR CHOLESTE ROL ORAL DISCONT INUED 10/28/2023 [id number] AMADOR RICE 2022 45 [facility] HYDROCHLORO THIAZIDE 25MG TAB TAKE ONE TABLET BY MOUTH EVERY MORNING TO PREVENT FLUID/CO NTROL BLOOD PRESSURE ORAL ACTIVE 10/20/2024 [id number] AMADOR RICE 2023 90 [facility] HYDROCHLORO THIAZIDE 25MG TAB TAKE ONE TABLET BY MOUTH EVERY MORNING TO PREVENT FLUID/CO NTROL BLOOD PRESSURE ORAL DISCONT INUED 10/28/2023 [id number] AMADOR RICE 2022 90 [facility] LATANOPROST 0.005% SOLN,OPH INSTILL 1 DROP INTO EACH EYE ONCE DAILY TO REDUCE PRESSURE IN THE EYE OPHTHA LMIC ACTIVE 07/09/2024 [id number] DILCIA,PATRICK EY J 2023 7.5 [facility] LATANOPROST 0.005% SOLN,OPH INSTILL 1 DROP INTO EACH EYE ONCE DAILY TO REDUCE PRESSURE IN THE EYE OPHTHA LMIC DISCONT INUED 09/03/2023 [id number] DILCIA,PATRICK EY J 2022 10 [facility] LISINOPRIL 40MG TAB TAKE ONE TABLET BY MOUTH DAILY TO CONTROL BLOOD PRESSURE ORAL ACTIVE 10/20/2024 [id number] AMADOR RICE 2023 90 [facility] LISINOPRIL 40MG TAB TAKE ONE TABLET BY MOUTH DAILY TO CONTROL BLOOD PRESSURE ORAL DISCONT INUED 10/28/2023 [id number] AMADOR RICE 2022 90 [facility] Allergies, Adverse Reactions, Alerts Combined list of allergies from Department of Defense and Veterans Affairs facilities. It does not include entries that were removed or entered in error. Substance Category Reaction Severity Reaction type Status Date Reported Comments Source ATENOLOL Propensity to adverse reactions to drug (finding) active 9 [facility] Immunizations Combined list of available immunizations from the Department of Defense and Veterans Affairs facilities. Immunization Series Date Given Administered By Site Reaction Lot Number CVX Code Drug Gun Synchronizer Status Comments Source INFLUENZA, HIGH-DOSE, QUADRIVALENT 2023 CAMILLE HURTADO E LEFT DELTO ID [id number] 197 complet ed [facility] INFLUENZA, INJECTABLE, QUADRIVALENT, PRESERVATIVE FREE 2021 150 complet ed [facility] COVID-19 (MODERNA), MRNA, LNP-S, PF, 100 MCG OR 50 MCG DOSE 3 2021 207 complet ed MOD; [id number]; 2 [facility] INFLUENZA VACCINE, QUADRIVALENT, ADJUVANTED 2020 205 complet ed [facility] COVID-19 (MODERNA), MRNA, LNP-S, PF, 100 MCG/0.5 ML DOSE 2 2020 207 complet ed [facility] COVID-19 (MODERNA), MRNA, LNP-S, PF, 100 MCG/0.5 ML DOSE 1 2020 207 complet ed [facility] INFLUENZA, INJECTABLE, QUADRIVALENT, PRESERVATIVE FREE 2019 150 complet ed [facility] INFLUENZA, TRIVALENT, ADJUVANTED 2019 168 complet ed Site: Right Deltoid [facility] ZOSTER RECOMBINANT 2 2018 187 complet ed [facility] HEP A-HEP B 2 2018 NONE 104 complet ed [facility] TDAP 2018 115 complet ed Site: Left Deltoid [facility] INFLUENZA, SEASONAL, INJECTABLE 2017 141 complet ed [facility] ZOSTER RECOMBINANT 1 2017 187 complet ed [facility] ZOSTER RECOMBINANT 1 2017 187 complet ed [facility] INFLUENZA, SEASONAL, INJECTABLE 2016 141 complet ed Site: Right Deltoid [facility] FLU,3 YRS (HISTORICAL) 2015 88 complet ed Site: Left Deltoid [facility] PNEUMOCOCCAL CONJUGATE PCV 13 2015 133 complet ed [facility] FLU,3 YRS (HISTORICAL) 2014 88 complet ed Site: Left Deltoid [facility] PNEUMOCOCCAL POLYSACCHARID E PPV23 2014 33 complet ed [facility] ZOSTER (SHINGLES) (HISTORICAL) 2013 121 complet ed Proximal Right Arm [facility] FLU,3 YRS (HISTORICAL) 2012 88 complet ed Site: Left Deltoid [facility] HEP B, ADULT 2010 43 complet ed [facility] HEPATITIS A (HISTORICAL) [address] [facility] TET-DIP-A/PER TUSSIS (HISTORICAL) 2009 139 complet ed [facility] ZOSTER (SHINGLES) (HISTORICAL) 2009 121 complet ed [facility] Results Combined list of recent chemistry, hematology and other laboratory results from Department of Defense and Veterans Affairs, ranging from 15 months to all on record, depending upon the facility. Order Name Results Value Reference Range Date Interpretation Specimen Comments Source URIC ACID URATE [MASS/VOLU ME] IN SERUM OR PLASMA 5.2 mg/dL 3.5 - 7.2 06/04 Specimen Type: SERUM No comment entered. Ordering Provider: Alfonso RICE Report Released Date/Time: May 27, 2023 11:14 AM Reporting Lab: [facility] [address] [facility] [address] Performing Lab: [facility] [address] [facility] [address] [facility] LIPID PANEL FASTING CHOLESTERO L [MASS/VOLU ME] IN SERUM OR PLASMA 180 mg/dL 06/04 Specimen Type: SERUM No comment entered. Ordering Provider: Alfonso RICE Report Released Date/Time: May 27, 2023 11:14 AM Reporting Lab: [facility] [address] [facility] [address] Performing Lab: [facility] [address] [facility] [address] [facility] LIPID PANEL FASTING TRIGLYCERI DE [MASS/VOLU ME] IN SERUM OR PLASMA 79 mg/dL 0 - 150 06/04 Specimen Type: SERUM No comment entered. Ordering Provider: Alfonso RICE Report Released Date/Time: May 27, 2023 11:14 AM Reporting Lab: [facility] [address] [facility] [address] Performing Lab: [facility] [address] [facility] [address] [facility] LIPID PANEL FASTING CHOLESTERO L IN LDL [MASS/VOLU ME] IN SERUM OR PLASMA BY YEE Murguia 105 mg/dL 0 - 129 06/04 Specimen Type: SERUM No comment entered. Ordering Provider: Alfonso RICE Report Released Date/Time: May 27, 2023 11:14 AM Reporting Lab: [facility] [address] [facility] [address] Performing Lab: [facility] [address] [facility] [address] [facility] LIPID PANEL FASTING CHOLESTERO L.TOTAL/CH OLESTEROL IN HDL [MASS RATIO] IN SERUM OR PLASMA 3.1 06/04 Specimen Type: SERUM No comment entered. Ordering Provider: Alfonso RICE Report Released Date/Time: May 27, 2023 11:14 AM Reporting Lab: [facility] [address] [facility] [address] Performing Lab: [facility] [address] [address] [facility] LIPID PANEL FASTING CHOLESTERO L IN HDL [MASS/VOLU ME] IN SERUM OR PLASMA 59 mg/dL 40 - 60 06/04 Specimen Type: SERUM No comment entered. Ordering Provider: Alfonso RICE Report Released Date/Time: May 27, 2023 11:14 AM Reporting Lab: [facility] [address] [facility] [address] Performing Lab: [facility] [address] [facility] [address] [facility] LIVER FUNCTION PROTEIN [MASS/VOLU ME] IN SERUM OR PLASMA 6.9 g/dL 6.0 - 8.3 06/04 Specimen Type: SERUM No comment entered. Ordering Provider: Alfonso RICE Report Released Date/Time: May 27, 2023 11:14 AM Reporting Lab: [facility] [address] [facility] [address] Performing Lab: [facility] [address] [address] [facility] LIVER FUNCTION ALBUMIN [MASS/VOLU ME] IN SERUM OR PLASMA 3.7 g/dL 3.5 - 5.0 06/04 Specimen Type: SERUM No comment entered. Ordering Provider: Alfonso RICE Report Released Date/Time: May 27, 2023 11:14 AM Reporting Lab: [facility] [address] [facility] [address] Performing Lab: [facility] [address] [facility] [address] [facility] LIVER FUNCTION ALKALINE PHOSPHATAS E [ENZYMATIC ACTIVITY/V OLUME] IN SERUM OR PLASMA 45 U/L 40 - 150 06/04 Specimen Type: SERUM No comment entered. Ordering Provider: Alfonso RICE Report Released Date/Time: May 27, 2023 11:14 AM Reporting Lab: [facility] [address] [address] Performing Lab: [facility] [place] [address] [address] [facility] LIVER FUNCTION ASPARTATE AMINOTRANS FERASE [ENZYMATIC ACTIVITY/V OLUME] IN SERUM OR PLASMA 24 U/L 5 - 34 06/04 Specimen Type: SERUM No comment entered. Ordering Provider: Alfonso RICE Report Released Date/Time: May 27, 2023 11:14 AM Reporting Lab: [facility] [address] [facility] [address] Performing Lab: [facility] [place] [address] [address] [facility] LIVER FUNCTION ALANINE AMINOTRANS FERASE [ENZYMATIC ACTIVITY/V OLUME] IN SERUM OR PLASMA 20 U/L 06/04 Specimen Type: SERUM No comment entered. Ordering Provider: Alfonso RICE Report Released Date/Time: May 27, 2023 11:14 AM Reporting Lab: [facility] [address] [facility] [address] Performing Lab: [facility] [address] [facility] [address] [facility] LIVER FUNCTION BILIRUBIN. TOTAL [MASS/VOLU ME] IN SERUM OR PLASMA 0.5 mg/dL 0.2 - 1.2 06/04 Specimen Type: SERUM No comment entered. Ordering Provider: Alfonso RICE Report Released Date/Time: May 27, 2023 11:14 AM Reporting Lab: [facility] [address] [facility] [address] Performing Lab: [facility] [address] [facility] [address] [facility] BASIC METABOLI C PANEL (fasting ) UREA NITROGEN [MASS/VOLU ME] IN SERUM OR PLASMA 28 mg/dL 7 - 25 06/04 H Specimen Type: SERUM No comment entered. Ordering Provider: Alfonso RICE Report Released Date/Time: May 27, 2023 11:14 AM Reporting Lab: [facility] [place] [facility] [address] [facility] [address] Performing Lab: [facility] [address] [facility] [address] [facility] BASIC METABOLI C PANEL (fasting ) GLUCOSE [MASS/VOLU ME] IN SERUM OR PLASMA 102 mg/dL 65 - 100 06/04 H Specimen Type: SERUM No comment entered. Ordering Provider: Alfonso RICE Report Released Date/Time: May 27, 2023 11:14 AM Reporting Lab: [facility] [address] [facility] [address] Performing Lab: [facility] [address] [facility] [address] [facility] BASIC METABOLI C PANEL (fasting ) SODIUM [MOLES/VOL UME] IN SERUM OR PLASMA 140 mmol/L 135 - 145 06/04 Specimen Type: SERUM No comment entered. Ordering Provider: Alfonso RICE Report Released Date/Time: May 27, 2023 11:14 AM Reporting Lab: [facility] [place] [address] [facility] [address] Performing Lab: [facility] [place] [address] [facility] [address] [facility] BASIC METABOLI C PANEL (fasting ) POTASSIUM [MOLES/VOL UME] IN SERUM OR PLASMA 3.9 mmol/L 3.5 - 5.0 06/04 Specimen Type: SERUM No comment entered. Ordering Provider: Alfonso RICE Report Released Date/Time: May 27, 2023 11:14 AM Reporting Lab: [facility] [address] [facility] [address] Performing Lab: [facility] [place] [address] [address] [facility] BASIC METABOLI C PANEL (fasting ) CHLORIDE [MOLES/VOL UME] IN SERUM OR PLASMA 103 mmol/L 100 - 110 06/04 Specimen Type: SERUM No comment entered. Ordering Provider: Alfonso RICE Report Released Date/Time: May 27, 2023 11:14 AM Reporting Lab: [facility] [address] [facility] [address] Performing Lab: [facility] [place] [address] [address] [facility] BASIC METABOLI C PANEL (fasting ) CARBON DIOXIDE, TOTAL [MOLES/VOL UME] IN SERUM OR PLASMA 24 meq/L 20 - 30 06/04 Specimen Type: SERUM No comment entered. Ordering Provider: Alfonso RICE Report Released Date/Time: May 27, 2023 11:14 AM Reporting Lab: [facility] [address] [facility] [address] Performing Lab: [facility] [address] [facility] [address] [facility] BASIC METABOLI C PANEL (fasting ) CREATININE [MASS/VOLU ME] IN SERUM OR PLASMA 1.08 mg/dL 0.50 - 1.40 06/04 Specimen Type: SERUM No comment entered. Ordering Provider: Alfonso RICE Report Released Date/Time: May 27, 2023 11:14 AM Reporting Lab: [address] [address] Performing Lab: [address] [address] [facility] BASIC METABOLI C PANEL (fasting ) GLOMERULAR FILTRATION RATE/1.73 SQ M.PREDICTE D [VOLUME RATE/AREA] IN SERUM, PLASMA OR BLOOD BY CREATININE -BASED FORMULA (CKD-EPI 2020) 72 mL/min 60 06/04 Specimen Type: SERUM No comment entered. Ordering Provider: Alfonso RICE Report Released Date/Time: May 27, 2023 11:14 AM Reporting Lab: [address] [address] Performing Lab: [address] [address] [facility] HCV RNA PCR PANEL(WH V) HEPATITIS C VIRUS RNA [PRESENCE] IN SERUM OR PLASMA BY GERMAINE WITH PROBE DETECTION Not Detected 10/22 Specimen Type: SERUM Comment: Assay performed using the [employer] m HCV nucleic acid amplificati on test for the quantitatio n of HCV RNA. This assay is intended for use as an aid in the diagnosis of HCV infection and in the management of HCV infected patients undergoing antiviral therapy. This test can quantitate HCV RNA over the range of 12 IU/mL to 1.0e+08 IU/mL. For testing performed prior to October 05, 2017, call the virology laboratory if viral load method and assay performance information is needed. Ordering Provider: Alfonso RICE Report Released Date/Time: May 06, 2022 01:46 PM Reporting Lab: [address] [address] Performing Lab: [facility] [address] [facility] [address] [facility] LIVER FUNCTION PROTEIN [MASS/VOLU ME] IN SERUM OR PLASMA 7.4 g/dL 6.0 - 8.3 10/22 Specimen Type: SERUM Comment: BUN Verified by repeat analysis. Ordering Provider: Alfonso RICE Report Released Date/Time: May 06, 2022 01:46 PM Reporting Lab: [facility] [address] [facility] [address] Performing Lab: [facility] [place] [address] [address] [facility] LIVER FUNCTION ALBUMIN [MASS/VOLU ME] IN SERUM OR PLASMA 4.3 g/dL 3.5 - 5.0 10/22 Specimen Type: SERUM Comment: BUN Verified by repeat analysis. Ordering Provider: Alfonso RICE Report Released Date/Time: May 06, 2022 01:46 PM Reporting Lab: [facility] [place] [address] [address] Performing Lab: [facility] [place] [address] [address] [facility] LIVER FUNCTION ALKALINE PHOSPHATAS E [ENZYMATIC ACTIVITY/V OLUME] IN SERUM OR PLASMA 47 U/L 40 - 150 10/22 Specimen Type: SERUM Comment: BUN Verified by repeat analysis. Ordering Provider: Alfonso RICE Report Released Date/Time: May 06, 2022 01:46 PM Reporting Lab: [facility] [place] [address] [address] Performing Lab: [facility] [place] [address] [address] [facility] LIVER FUNCTION ASPARTATE AMINOTRANS FERASE [ENZYMATIC ACTIVITY/V OLUME] IN SERUM OR PLASMA 25 U/L 5 - 34 10/22 Specimen Type: SERUM Comment: BUN Verified by repeat analysis. Ordering Provider: Alfonso RICE Report Released Date/Time: May 06, 2022 01:46 PM Reporting Lab: [facility] [address] [facility] [address] Performing Lab: [facility] [place] [address] [facility] [address] [facility] LIVER FUNCTION ALANINE AMINOTRANS FERASE [ENZYMATIC ACTIVITY/V OLUME] IN SERUM OR PLASMA 23 U/L 10/22 Specimen Type: SERUM Comment: BUN Verified by repeat analysis. Ordering Provider: Alfonso RICE Report Released Date/Time: May 06, 2022 01:46 PM Reporting Lab: [facility] [address] [facility] [address] Performing Lab: [facility] [place] [address] [address] [facility] LIVER FUNCTION BILIRUBIN. TOTAL [MASS/VOLU ME] IN SERUM OR PLASMA 0.7 mg/dL 0.2 - 1.2 10/22 Specimen Type: SERUM Comment: BUN Verified by repeat analysis. Ordering Provider: Alfonso RICE Report Released Date/Time: May 06, 2022 01:46 PM Reporting Lab: [facility] [place] [address] [address] Performing Lab: [facility] [place] [address] [address] [facility] BASIC METABOLI C PANEL (fasting ) UREA NITROGEN [MASS/VOLU ME] IN SERUM OR PLASMA 37 mg/dL 7 - 25 10/22 H Specimen Type: SERUM Comment: BUN Verified by repeat analysis. Ordering Provider: Alfonso RICE Report Released Date/Time: May 06, 2022 01:46 PM Reporting Lab: [facility] [place] [address] [address] Performing Lab: [facility] [address] [address] [facility] BASIC METABOLI C PANEL (fasting ) GLUCOSE [MASS/VOLU ME] IN SERUM OR PLASMA 104 mg/dL 65 - 100 10/22 H Specimen Type: SERUM Comment: BUN Verified by repeat analysis. Ordering Provider: Alfonso RICE Report Released Date/Time: May 06, 2022 01:46 PM Reporting Lab: [facility] [address] [address] Performing Lab: [facility] [address] [facility] BASIC METABOLI C PANEL (fasting ) SODIUM [MOLES/VOL UME] IN SERUM OR PLASMA 140 mmol/L 135 - 145 10/22 Specimen Type: SERUM Comment: BUN Verified by repeat analysis. Ordering Provider: Alfonso RICE Report Released Date/Time: May 06, 2022 01:46 PM Reporting Lab: [facility] [id number] [address] Performing Lab: [facility]INAWRLAUREL [facility]TRN [facility] [address] [facility] BASIC METABOLI C PANEL (fasting ) POTASSIUM [MOLES/VOL UME] IN SERUM OR PLASMA 4.2 mmol/L 3.5 - 5.0 10/22 Specimen Type: SERUM Comment: BUN Verified by repeat analysis. Ordering Provider: Alfonso RICE Report Released Date/Time: May 06, 2022 01:46 PM Reporting Lab: [facility] [address] [address] Performing Lab: [facility] TRN [facility] [address] [facility]INAWRRUSSELLVILLE HOSPITALN [facility]ITALUSE [facility] BASIC METABOLI C PANEL (fasting ) CHLORIDE [MOLES/VOL UME] IN SERUM OR PLASMA 103 mmol/L 100 - 110 10/22 Specimen Type: SERUM Comment: BUN Verified by repeat analysis. Ordering Provider: Alfonso RICE Report Released Date/Time: May 06, 2022 01:46 PM Reporting Lab: [facility] [address] [address] Performing Lab: [facility] [address] [address] [facility]N [facility]ITALUSE [facility] BASIC METABOLI C PANEL (fasting ) CARBON DIOXIDE, TOTAL [MOLES/VOL UME] IN SERUM OR PLASMA 23 meq/L 20 - 30 10/22 Specimen Type: SERUM Comment: BUN Verified by repeat analysis. Ordering Provider: Alfonso RICE Report Released Date/Time: May 06, 2022 01:46 PM Reporting Lab: [facility] [address] Performing Lab: [facility] [address] [facility]N [facility]ITALUSE [facility] BASIC METABOLI C PANEL (fasting ) CREATININE [MASS/VOLU ME] IN SERUM OR PLASMA 1.17 mg/dL 0.50 - 1.40 10/22 Specimen Type: SERUM Comment: BUN Verified by repeat analysis. Ordering Provider: Alfonso RICE Report Released Date/Time: May 06, 2022 01:46 PM Reporting Lab: [facility] [address] Performing Lab: [facility] [address] [facility]ITAL[facility] BASIC METABOLI C PANEL (fasting ) GLOMERULAR FILTRATION RATE/1.73 SQ M.PREDICTE D [VOLUME RATE/AREA] IN SERUM, PLASMA OR BLOOD BY CREATININE -BASED FORMULA (CKD-EPI) 65 mL/min 60 10/22 Specimen Type: SERUM Comment: BUN Verified by repeat analysis. Ordering Provider: Alfonso RICE Report Released Date/Time: May 06, 2022 01:46 PM Reporting Lab: [facility] [address] Performing Lab: [facility] [address] [facility] [address] [facility] LIPID PANEL FASTING CHOLESTERO L [MASS/VOLU ME] IN SERUM OR PLASMA 174 mg/dL 10/22 Specimen Type: SERUM Comment: BUN Verified by repeat analysis. Ordering Provider: Alfonso RICE Report Released Date/Time: May 06, 2022 01:46 PM Reporting Lab: [facility] [address] [facility] [address] Performing Lab: [facility] [address] [facility] [address] [facility] LIPID PANEL FASTING TRIGLYCERI DE [MASS/VOLU ME] IN SERUM OR PLASMA 92 mg/dL 0 - 150 10/22 Specimen Type: SERUM Comment: BUN Verified by repeat analysis. Ordering Provider: Alfonso RICE Report Released Date/Time: May 06, 2022 01:46 PM Reporting Lab: [facility] [address] [facility] [address] Performing Lab: [facility] [address] [facility] [address] [facility] LIPID PANEL FASTING CHOLESTERO L IN LDL [MASS/VOLU ME] IN SERUM OR PLASMA BY CALCULATIO N 99 mg/dL 0 - 129 10/22 Specimen Type: SERUM Comment: BUN Verified by repeat analysis. Ordering Provider: Alfonso RICE Report Released Date/Time: May 06, 2022 01:46 PM Reporting Lab: [facility] [address] [facility] [address] Performing Lab: [facility] [address] [facility] [address] [facility] [place] [facility] LIPID PANEL FASTING CHOLESTERO L.TOTAL/CH OLESTEROL IN HDL [MASS RATIO] IN SERUM OR PLASMA 3.1 10/22 Specimen Type: SERUM Comment: BUN Verified by repeat analysis. Ordering Provider: Alfonso RICE Report Released Date/Time: May 06, 2022 01:46 PM Reporting Lab: [facility] [address] [facility] [address] Performing Lab: [facility] [address] [facility] [address] [facility] LIPID PANEL FASTING CHOLESTERO L IN HDL [MASS/VOLU ME] IN SERUM OR PLASMA 57 mg/dL 40 - 60 10/22 Specimen Type: SERUM Comment: BUN Verified by repeat analysis. Ordering Provider: Alfonso RICE Report Released Date/Time: May 06, 2022 01:46 PM Reporting Lab: [facility] [address] [facility] [address] Performing Lab: [facility] [address] [facility] [address] [facility] [facility] BASIC METABOLI C PANEL (fasting ) UREA NITROGEN [MASS/VOLU ME] IN SERUM OR PLASMA 22 mg/dL 7 - 25 04/29 Specimen Type: SERUM No comment entered. Ordering Provider: Alfonso RICE Report Released Date/Time: Apr 29, 2022 09:01 AM Reporting Lab: [facility] [address] [facility] [address] Performing Lab: [facility] [address] [facility] [address] [facility] BASIC METABOLI C PANEL (fasting ) GLUCOSE [MASS/VOLU ME] IN SERUM OR PLASMA 123 mg/dL 65 - 100 04/29 H Specimen Type: SERUM No comment entered. Ordering Provider: Alfonso RICE Report Released Date/Time: Apr 29, 2022 09:01 AM Reporting Lab: [facility] [address] [facility] [address] Performing Lab: [facility] [address] [facility] [address] [facility] BASIC METABOLI C PANEL (fasting ) SODIUM [MOLES/VOL UME] IN SERUM OR PLASMA 138 mmol/L 135 - 145 04/29 Specimen Type: SERUM No comment entered. Ordering Provider: Alfonso RICE Report Released Date/Time: Apr 29, 2022 09:01 AM Reporting Lab: [facility]INAWRLAUREL [facility]ENTERTRN [facility]USE[address] [address] Performing Lab: [facility]N [facility]ITALUSE[facility] [address] [facility] [address] [facility]INAWRRUSSELLVILLE HOSPITALN [facility] BASIC METABOLI C PANEL (fasting ) POTASSIUM [MOLES/VOL UME] IN SERUM OR PLASMA 4.2 mmol/L 3.5 - 5.0 04/29 Specimen Type: SERUM No comment entered. Ordering Provider: Alfonso RICE Report Released Date/Time: Apr 29, 2022 09:01 AM Reporting Lab: [facility]INAWRLAUREL [facility]ENTERTRN [facility]USE[address] [address] Performing Lab: [facility]INAWRLAUREL [facility]ENTERTRN [facility] [address] [facility] BASIC METABOLI C PANEL (fasting ) CHLORIDE [MOLES/VOL UME] IN SERUM OR PLASMA 103 mmol/L 100 - 110 04/29 Specimen Type: SERUM No comment entered. Ordering Provider: Alfonso RICE Report Released Date/Time: Apr 29, 2022 09:01 AM Reporting Lab: [facility] [address] Performing Lab: [facility]INAWRLAUREL [facility]ENTERTRN [facility]ITAL[facility] [address] [facility]INAWRRUSSELLVILLE HOSPITALN [facility] BASIC METABOLI C PANEL (fasting ) CARBON DIOXIDE, TOTAL [MOLES/VOL UME] IN SERUM OR PLASMA 25 meq/L 20 - 30 04/29 Specimen Type: SERUM No comment entered. Ordering Provider: Alfonso RICE Report Released Date/Time: Apr 29, 2022 09:01 AM Reporting Lab: [facility] [address] [facility] [address] Performing Lab: [facility] [address] [facility] [address] [facility] BASIC METABOLI C PANEL (fasting ) CREATININE [MASS/VOLU ME] IN SERUM OR PLASMA 0.94 mg/dL 0.50 - 1.40 04/29 Specimen Type: SERUM No comment entered. Ordering Provider: Alfonso RICE Report Released Date/Time: Apr 29, 2022 09:01 AM Reporting Lab: [facility] [place] [address] [address] Performing Lab: [facility] [place] [address] [address] [facility] BASIC METABOLI C PANEL (fasting ) GLOMERULAR FILTRATION RATE/1.73 SQ M.PREDICTE D [VOLUME RATE/AREA] IN SERUM, PLASMA OR BLOOD BY CREATININE -BASED FORMULA (CKD-EPI) 85 mL/min 60 04/29 Specimen Type: SERUM No comment entered. Ordering Provider: Alfonso RICE Report Released Date/Time: Apr 29, 2022 09:01 AM Reporting Lab: [facility] [place] [address] [address] Performing Lab: [facility] [place] [address] [address] [facility] [place] [facility] URIC ACID URATE [MASS/VOLU ME] IN SERUM OR PLASMA 5.0 mg/dL 3.5 - 7.2 04/29 Specimen Type: SERUM No comment entered. Ordering Provider: Alfonso RICE Report Released Date/Time: Apr 29, 2022 09:01 AM Reporting Lab: [facility] [address] [facility] [address] Performing Lab: [facility] [place] [address] [address] [facility] Vital Signs Combined list of inpatient and outpatient Vital Signs from Department of Defense and Veterans Affairs, ranging from 12 months to all on record, depending upon the facility. Vital Sign Value Date Comments Source SYSTOLIC BLOOD PRESSURE 120 10/20/19 24 14:08:48 [facility] DIASTOLIC BLOOD PRESSURE 70 024 14:08:48 [facility] PULSE OXIMETRY 99 10/20/2023 14:08:48 [facility] WEIGHT 200 10/20/2023 14:08:48 [facility] BMI 29kg/m2 10/20/2023 14:08:48 [facility] PAIN 5 10/20/2023 14:08:48 [facility] TEMPERATURE 98.9 10/20/2023 14:08:48 [facility] PULSE 83 10/20/2023 14:08:48 [facility] RESPIRATION 16 10/20/2023 14:08:48 [facility] SYSTOLIC BLOOD PRESSURE 124 06/05/19 24 08:47:08 [facility] DIASTOLIC BLOOD PRESSURE 64 024 08:47:08 [facility] PULSE OXIMETRY 96 06/05/2023 08:47:08 [facility] WEIGHT 206 06/05/2023 08:47:08 [facility] BMI 30kg/m2 06/05/2023 08:47:08 [facility] PAIN 0 06/05/2023 08:47:08 [facility] TEMPERATURE 98.4 06/05/2023 08:47:08 [facility] PULSE 80 06/05/2023 08:47:08 [facility] RESPIRATION 16 06/05/2023 08:47:08 [facility] Encounters Combined list of: 1) Encounters from Department of Veterans Affairs facilities going back up to thelast 18 months. 2) Encounters from the Department of Defense facilities going back up to 280 months. Location Location Details Encounter Type Encounter Number Reason For Visit Attending Provider ADM Date DC Date Status Disposition Source [facility] OFFICE O/P EST LOW 20-29 MIN [id number] Diagnos is: ICD-10- CM I11.9 Hyperte nsive heart disease without heart failure
AMADOR RICE 10/27 [facility] Outpatient Encounter [id number] 03/05 [facility] EXTENDED VISUAL FIELD XM [id number] Diagnos is: ICD-10- CM H40.113 1 Primary open-an gle glaucom a, bilater al, mild stage<b r/> HA,LACE Y J 05/28 [facility] [place] [facility] CMPTR OPHTH IMG OPTIC NERVE [id number] Diagnos is: ICD-10- CM H40.113 1 Primary open-an gle glaucom a, bilater al, mild stage<b r/> HA,LACE Y J 05/28 [facility] COMPRE OPH EXAM EST PT 1/> [id number] Diagnos is: ICD-10- CM H40.113 1 Primary open-an gle glaucom a, bilater al, mild stage<b r/> HA,LACE Y J 05/28 [facility] Outpatient Encounter [id number] 06/04 [facility] OFFICE O/P EST LOW 20 MIN [id number] Diagnos is: ICD-10- CM Z77.29 Contact with and exposur e to other hazardo us substan moiz<br/ > LINDASTEPHENAMADOR BERNARDO 06/04 [facility] En[facility] [id number] 10/08 [facility] Encounter [id number] 10/12 [facility] OFFICE O/P EST LOW 20 MIN [id number] Diagnos is: ICD-10- CM I10 Essenti al (primar y) hyperte nsion<b r/> LINDAAYAANAMADOR 10/19 [facility] Encounter [id number] 1.12/15 [facility] En[facility] [id number] [facility] En[facility] [id number] 1.12/20 [facility] En[facility] [id number] 1.12/22 [facility] Encounter [id number] 1.01/04 [facility] Social History Combined list of available smoking, tobacco, and other social history from Department of Defense and Veterans Affairs facilities. Social History Type Response Date Comment Sour e Tobacco smoking status NHIS VA-TOBACCO NEVER USED 03/05/2023 [facility] History of tobacco use MI-TOBACCO NEVER USED 12/24/2021 [facility] History of tobacco use MI-TOBACCO NEVER USED 12/28/2020 [facility] History of tobacco use MI-TOBACCO FORMER USER 12/21/2019 [facility] [facility] History of tobacco use MI-TOBACCO FORMER USER 05/18/2018 [facility] History of tobacco use QUIT TOBACCO USE > 7 YEARS AGO 11/02/2017 [facility] History of tobacco use QUIT TOBACCO USE > 7 YEARS AGO 11/04/2016 [facility] History of tobacco use QUIT TOBACCO USE > 7 YEARS AGO 09/21/2015 . [facility] History of tobacco use QUIT TOBACCO USE > 7 YEARS AGO 01/17/2013 [facility] Plan of Care List of future care activities from Department of Veterans Affairs facilities. Additional future care activities may be listed in the Assessment and Plan section. Date/Time Care Activity Care Activity Detail Facili ty 03/07/2024 AMBULATORY - MEDICINE AMBULATORY - MEDICI NE [facility] [facility] 08/03/2024 [facility] 08/03/2024 [facility] - [facility]
--- OUTSIDE RECORDS SUMMARY | 2024-03-07 09:30 | XMS_ITS ---
Author Name [facility] [place] Organization [facility] [place] Address [address] [place] [address] Care Team Providers Care Resource Manager Name Role Phone RAY TORRES Primary Care [...] PART B Sep 21, 2015 PART B [id number] NENO ABBOTT JR PATIENT MEDICARE (WNR) MEDICARE (M) PART A Nov 21, 2013 PART A [id number] NENO ABBOTT JR PATIENT MEDICARE (WNR) MEDICARE (M) PART A Nov 21, 2013 PART A [id number] [phone] NENO ABBOTT PATIENT MEDICARE (WNR) MEDICARE (M) PART A Nov 21, 2013 PART A [id number] [phone] NENO ABBOTT JR PATIENT Selected Encounter This section includes the information on record at [place] for the Encounter. Date/Time Encounter Type Encounter Description Reason Provider Source Oct 20, 2023 02:00 PM OFFICE O/P EST LOW 20 MIN PRIMARY CARE/MEDICINE ICD-10-CM I10 Essential (primary) hypertension VANWAGNER,AISHA JEFFREY F IHE Encounter Template Text not used by [place] Assessments - Encounter Diagnoses This section includes the primary and secondary diagnoses documented for the Encounter. Date/Time Primary/Secondary Diagnosis Diagnosis Name Provider Source Oct 20, 2023 02:51 PM PRIMARY Essential (primary) hypertension AISHA TORRES [facility] Plan of Treatment: Future Appointments (+ 6 months) and Future Tests (+/- 45 days) The Plan of Treatment section includes future care activities for the patient from all [place] [facility]. This section includes future appointments and future orders which are active, pending or scheduled. Future Appointments This section includes appointments that were scheduled to occur 6 months from the date of the Encounter, up to a maximum of 20 appointments. The data comes from all [place] treatment facilities. Appointment Date/Time Appointment Type Appointme nt Facility Name Jan 05, 2024 09:00 AM AMBULATORY - MEDICINE [facility] Jan 13, 2024 10:30 AM AMBULATORY MEDICINE [facility] Mar 07, 2024 10:30 AM AMBULATORY MEDICINE [facility] Vital Signs: All taken on the encounter date This section contains inpatient and outpatient Vital Signs collected on the date of the Encounter. Date/Time Temperature Pulse Blood Pressure Respiratory Rate SP02 Pain Height Weight Body Mass Index Source Oct 20, 2023 02:08 PM 98.9 83 120/70 16 99 5 200 29 [facility] Social History: Smoking Status (Most current) and Tobacco Use (All prior to encounter date) This section includes the most current, and the historical, smoking and tobacco- related health factors from the [place] facility where the Encounter took place. Current Smoking Status This section includes the most current smoking, or tobacco-related health factor, from the [place] facility where the Encounter took place. Date/Time Current Smoking Status Comment Nusrat ity Mar 05, 2023 01:21 PM VA-TOBACCO NEVER USED [facility] Tobacco Use History This section includes a history of the smoking, or tobacco-related health factors, that were collected on or before the date of the Encounter. The data comes from the [place] facility where the Encounter took place. Date/Time Smoking Status/Tobacco Use Comment F acility Dec 24, 2021 11:30 AM VA-TOBACCO NEVER USED [place] [facility] [place] [facility] Dec 28, 2020 03:30 PM VA-TOBACCO NEVER USED [facility] [place] [facility] Dec 21, 2019 09:00 AM VA-TOBACCO FORMER USER [facility] [place] [facility] Dec 21, 2019 09:00 AM VA-TOBACCO QUIT 15 YRS OR MORE [facility] [place] [facility] May 18, 2018 08:51 AM VA-TOBACCO FORMER USER [facility] [place] [facility] May 18, 2018 08:51 AM VA-TOBACCO QUIT 15 YRS OR MORE [facility] [place] [facility] Nov 02, 2017 08:19 AM QUIT TOBACCO USE > 7 YEARS AGO [facility] [place] [facility] Nov 04, 2016 09:14 AM QUIT TOBACCO USE > 7 YEARS AGO [facility] [place] [facility] Sep 21, 2015 09:08 AM QUIT TOBACCO USE > 7 YEARS AGO . [place] [facility] [place] [facility] Jan 17, 2013 02:27 PM QUIT TOBACCO USE > 7 YEARS AGO . [place] [facility] [place] [facility] Encounter Notes: All associated encounter notes This section contains the clinical notes associated to the Encounter. Date/Time Encounter Note(s) Provider Source Oct 20, 2023 02:48 PM PHYSICIAN PSYCHOLOGICAL ANTHROPOLOGIST NOTE: LOCAL TITLE: PA NOTE STANDARD TITLE: PHYSICIAN PSYCHOLOGICAL ANTHROPOLOGIST NOTE DATE OF NOTE: OCT 20, 2023@14:48 ENTRY DATE: OCT 20, 2023@14:48:15 AUTHOR: RAY TORRES COSIGNER: URGENCY: STATUS: COMPLETED PA NOTE Has ADDENDA CC/HPI/A/P: 72 year old MALE here in follow-up for; Ex lap for SBO 4 days ago. Great' when I ask how he is doing. He is eating, drinking, voiding, stooling and passing gas as per his usual. His surgical site is heaing well, no signs of infection. obesity, weight loss discussed, he has done so well we quit drinking and improved our diet htn, 3 meds, reports some lightheadedness when he cuts the grass, decrease amlodionpine from 10mg daily to 5 mg daily. Review of systems: Patient reports no changes from [place], in meds or any admissions. Active problems - Computerized Problem List is the source for the followin. Small bowel obstruction Ex lap 10/09/2023 2. Exposure to potentially hazardous substance 3. Glaucoma 4. Tubular adenoma of colon One, on his 06/25/2018 colonoscopy. 5. LOW BACK PAIN, LUMBAGO 6. Diverticular disease of colon On 2002 and 2007 colonoscopy, One HP polyp each as well. Colonoscopy 07/2013 No polyps 7. Family history of cancer of colon Father 8. Gout 9. Benign hypertension 10. Obesity 11. Gastroesophageal Reflux Disease 12. Hepatitis C Incidental pickup , combination therapy -. Pt acheived SVR after 12 weeks of Vosevi in 2018 SERVICE CONNECTED % - NONE FOUND VA and Non VA meds were reconciled with the patient who left with a corrected copy. See medication page for details. Active and Recently Outpatient Medications (excluding Supplies): Active Outpatient Medications Status 1) ALLOPURINOL 300MG TAB TAKE ONE TABLET BY MOUTH DAILY ACTIVE FOR GOUT 2) AMLODIPINE BESYLATE 10MG TAB TAKE ONE TABLET BY MOUTH ACTIVE ONCE DAILY FOR BLOOD PRESSURE/HEART, DO NOT TAKE WITH GRAPEFRUIT JUICE 3) ATORVASTATIN CALCIUM 20MG TAB TAKE ONE-HALF TABLET BY ACTIVE MOUTH DAILY FOR CHOLESTEROL 4) HYDROCHLOROTHIAZIDE 25MG TAB TAKE ONE TABLET BY MOUTH ACTIVE EVERY MORNING TO PREVENT FLUID/CONTROL BLOOD PRESSURE 5) LATANOPROST 0.005% OPH SOLN INSTILL 1 DROP INTO EACH ACTIVE EYE ONCE DAILY TO REDUCE PRESSURE IN THE EYE 6) LISINOPRIL 40MG TAB TAKE ONE TABLET BY MOUTH DAILY TO ACTIVE CONTROL BLOOD PRESSURE 98.9 F [37.2 C] (10/20/2023 14:08) 83 (10/20/2023 14:08) 16 (10/20/2023 14:08) 120/70 (10/20/2023 14:08) 5 (10/20/2023 14:08) 69.5 in [176.5 cm] (04/07/2019 11:21) 200 lb [90.72 kg] (10/20/2023 14:08) BMI: 29.2 Neuro: Alert and oriented times three, grossly nonfocal, nasolabial folds intact. /carlos manuel/ Ray Torres PA-C STAFF PHYSICIAN PSYCHOLOGICAL ANTHROPOLOGIST Signed: 10/20/2023 14:51 12/07/2023 ADDENDUM STATUS: COMPLETED 10/09/23 CT abdomen reviewed, reported cystic mass in tail of pancreas. I called and discussed with him. He does not know about this and has only our colonoscopy consult pending. I email cc staff to assist with order and scheduling. /carlos manuel/ Ray Torres PA-C STAFF PHYSICIAN PSYCHOLOGICAL ANTHROPOLOGIST Signed: 12/07/2023 08:33 RAY TORRES [facility]
--- OUTSIDE RECORDS SUMMARY | 2024-03-07 09:30 | XMS_ITS | Encounter Summary ---
Author Name [facility] [place] Organization [facility] [place] Address [address] [place] [address] Care Team Providers Care Dry Cleaner Hand Name Role Phone AMADOR RICE Primary Care [...] PART B Sep 21, 2015 PART B [id number] NENO ABBOTT JR PATIENT MEDICARE (WNR) MEDICARE (M) PART A Nov 21, 2013 PART A [id number] NENO ABBOTT JR PATIENT MEDICARE (WNR) MEDICARE (M) PART A Nov 21, 2013 PART A [id number] NENO ABBOTT PATIENT MEDICARE (WNR) MEDICARE (M) PART A Nov 21, 2013 PART A [id number] [phone] NENO ABBOTT JR PATIENT Selected Encounter This section includes the information on record at [place] for the Encounter. Date/Time Encounter Type Encounter Description Reason Pro vider Source Dec 21, 2023 03:12 PM Outpatient Encounter OPTOMETRY IHE Encounter Template Text not used by [facility] Plan of Treatment: Future Appointments (+ 6 months) and Future Tests (+/- 45 days) The Plan of Treatment section includes future care activities for the patient from all [place] [facility]. This section includes future appointments and future orders which are active, pending or scheduled. Future Appointments This section includes appointments that were scheduled to occur 6 months from the date of the Encounter, up to a maximum of 20 appointments. The data comes from all [facility]. Appointment Date/Time Appointment Type Appointme nt Facility Name Jan 05, 2024 09:00 AM AMBULATORY - MEDICINE [facility] Jan 13, 2024 10:30 AM AMBULATORY MEDICINE [facility] Mar 07, 2024 10:30 AM AMBULATORY MEDICINE [facility] Active, Pending, and Scheduled Orders This section includes a listing of several types of active, pending, and scheduled orders, including clinic medications orders, diagnostic test orders, procedure orders and consult orders; where the start date of the order is 45 days before the date of the Encounter or 45 days after the date of theEncounter. The data comes from all [facility]. Test Date/Time Test Type Test Details Facility Name Dec 07, 2023 02:36 PM Consult Order COMMUNITY CARE-GI GENERAL Cons Education Research Analyst's Choice [facility] Dec 17, 2023 09:06 AM Consult Order COMMUNITY CARE-MRI Cons Education Research Analyst's Choice [facility] Dec 24, 2023 12:00 AM Laboratory - Chemi stry Order BASIC METABOLIC PANEL (fasting) BLOOD (SST-SERUM) [facility] Dec 24, 2023 12:00 AM Laboratory - Chemi stry Order LIPID PANEL FASTING BLOOD (SST-SERUM) [facility] Dec 24, 2023 12:00 AM Laboratory - Chemi stry Order LIVER FUNCTION BLOOD (SST-SERUM) [facility] Dec 24, 2023 12:00 AM Laboratory - Chemi stry Order URIC ACID BLOOD (SST-SERUM) [facility] Social History: Smoking Status (Most current) and Tobacco Use (All prior to encounter date) This section includes the most current, and the historical, smoking and tobacco- related health factors from the [place] facility where the Encounter took place. Current Smoking Status This section includes the most current smoking, or tobacco-related health factor, from the [place] facility where the Encounter took place. Date/Time Current Smoking Status Comment Facil ity Mar 05, 2023 01:21 PM VA-TOBACCO NEVER USED [facility] Tobacco Use History This section includes a history of the smoking, or tobacco-related health factors, that were collected on or before the date of the Encounter. The data comes from the [place] facility where the Encounter took place. Date/Time Smoking Status/Tobacco Use Comment F acility Dec 24, 2021 11:30 AM VA-TOBACCO NEVER USED [place] [facility] [facility] Dec 28, 2020 03:30 PM VA-TOBACCO NEVER USED [place] [facility] [place] [facility] Dec 21, 2019 09:00 AM VA-TOBACCO FORMER USER [place] [facility] [place] [facility] Dec 21, 2019 09:00 AM VA-TOBACCO QUIT 15 YRS OR MORE [place] [facility] [place] [facility] May 18, 2018 08:51 AM VA-TOBACCO FORMER USER [place] [facility] [place] [facility] May 18, 2018 08:51 AM VA-TOBACCO QUIT 15 YRS OR MORE [place] [facility] [place] [facility] Nov 02, 2017 08:19 AM QUIT TOBACCO USE > 7 YEARS AGO [place] [facility] [place] [facility] Nov 04, 2016 09:14 AM QUIT TOBACCO USE > 7 YEARS AGO [place] [facility] [place] [facility] Sep 21, 2015 09:08 AM QUIT TOBACCO USE > 7 YEARS AGO . [place] [facility] [place] [facility] Jan 17, 2013 02:27 PM QUIT TOBACCO USE > 7 YEARS AGO . [place] [facility] [place] [facility] Encounter Notes: All associated encounter notes This section contains the clinical notes associated to the Encounter. Date/Time Encounter Note(s) Provider Source Dec 21, 2023 03:13 PM LETTERS: LOCAL TITLE: PATIENT LETTER (B) STANDARD TITLE: LETTERS DATE OF NOTE: DEC 21, 2023@15:13 ENTRY DATE: DEC 21, 2023@15:13:27 AUTHOR: YANDY BUSH EXP COSIGNER: URGENCY: STATUS: COMPLETED [facility] Toll Free Number ext [phone] [facility] scheduling can be reached at ext. [phone] [facility]- ext. [phone] [facility]- ext. [phone] [facility]- ext. [phone] DEC 21, 2023 NENO ABBOTT [address] [place] [id number] Dear NENO ABBOTT Thank you for choosing the Department of [facility] Affairs ([place]) [facility] as your primary choice for health care. As a partner in your health care, we are contacting you in writing since we have been unsuccessful in our attempts to reach you to date. We want to assure you we are doing everything possible to schedule Veterans for their [place] medical care appointments. Our records indicate you are due for an appointment in visual imaging. If you would like to be seen, please contact [facility] at ext. [phone] to schedule an appointment. Thank you for your service to our nation, and we look forward to hearing from you soon. Sincerely, [facility] [address] [facility] [address] [place] [address] [place] [address] ext [phone] [facility] [address] [facility] [address] [place] [address] [place] [address] ext. [phone] [facility] [address] [facility] [address] [place] [address] [place] [address] ext. [phone] [facility] [address] [place] [address] ext. [phone] YANDY BUSH [place] [facility] [place] [facility] Dec 21, 2023 03:12 PM ADMINISTRATIVE NOT E: LOCAL TITLE: ADMINISTRATIVE RECALL NOTE STANDARD TITLE: ADMINISTRATIVE NOTE DATE OF NOTE: DEC 21, 2023@15:12 ENTRY DATE: DEC 21, 2023@15:12:57 AUTHOR: YANDY BUSH EXP COSIGNER: URGENCY: STATUS: COMPLETED RTC orders: Unable to contact patient: Attempts to contact: 1st attempt: Left voicemail 2nd attempt: Letter mailedDisposition onDec 3rd attempt: 4th attempt: /carlos manuel/ YANDY BUSH ADVANCED ALL SOURCE INTELLIGENCE TECHNICIAN Signed: 12/21/2023 15:13 [facility] BUSH [facility]
--- OUTSIDE RECORDS SUMMARY | 2024-03-07 09:30 | XMS_ITS ---
Author Name [facility] [place] Organization [facility] ([place]) Address [address] [place] [address] Care Team Providers Care Group Marketing Vp Name Role Phone AMADOR RICE Primary Care [...] PART B Sep 21, 2015 PART B [id number] [phone] NENO ABBOTT JR PATIENT MEDICARE (WNR) MEDICARE (M) PART A Nov 21, 2013 PART A [id number] [phone] NENO ABBOTT JR PATIENT MEDICARE (WNR) MEDICARE (M) PART A Nov 21, 2013 PART A [id number] NENO ABBOTT PATIENT MEDICARE (WNR) MEDICARE (M) PART A Nov 21, 2013 PART A [id number] NENO ABBOTT JR PATIENT Selected Encounter This section includes the information on record at [place] for the Encounter. Date/Time Encounter Type Encounter Description Reason Pro vider Source Jan 05, 2024 02:00 PM Outpatient Encounter PRIMARY CARE/MEDICINE IHE Encounter Template Text not used by [place] Plan of Treatment: Future Appointments (+ 6 months) and Future Tests (+/- 45 days) The Plan of Treatment section includes future care activities for the patient from all [place] [facility]. This section includes future appointments and future orders which are active, pending or scheduled. Future Appointments This section includes appointments that were scheduled to occur 6 months from the date of the Encounter, up to a maximum of 20 appointments. The data comes from all [facility]. Appointment Date/Time Appointment Type Appointme nt Facility Name Jan 13, 2024 10:30 AM AMBULATORY - MEDICINE [facility] Mar 07, 2024 10:30 AM AMBULATORY MEDICINE [facility] Active, Pending, and Scheduled Orders This section includes a listing of several types of active, pending, and scheduled orders, including clinic medications orders, diagnostic test orders, procedure orders and consult orders; where the start date of the order is 45 days before the date of the Encounter or 45 days after the date of theEncounter. The data comes from all [facility]. Test Date/Time Test Type Test Details Facility Name Dec 07, 2023 02:36 PM Consult Order COMMUNITY CARE-GI GENERAL Cons Bridge Repairer's Choice [facility] Dec 17, 2023 09:06 AM Consult Order COMMUNITY CARE-MRI Cons Bridge Repairer's Choice [facility] Dec 24, 2023 12:00 AM Laboratory [...] and tobacco- related health factors from the [place] facility where the Encounter took place. Current Smoking Status This section includes the most current smoking, or tobacco-related health factor, from the [place] facility where the Encounter took place. Date/Time Current Smoking Status Comment Facil ity Mar 05, 2023 01:21 PM VA-TOBACCO NEVER USED [place] CNTR [facility] [facility] Tobacco Use History This section includes a history of the smoking, or tobacco-related health factors, that were collected on or before the date of the Encounter. The data comes from the [place] facility where the Encounter took place. Date/Time Smoking Status/Tobacco Use Comment F acility Dec 24, 2021 11:30 AM VA-TOBACCO NEVER USED [place] CNTR[place] [facility] Dec 28, 2020 03:30 PM VA-TOBACCO NEVER USED [place] CNTR[place] [facility] Dec 21, 2019 09:00 AM VA-TOBACCO FORMER USER [place] CNTR[facility] [facility] Dec 21, 2019 09:00 AM VA-TOBACCO QUIT 15 YRS OR MORE [place] [facility] [facility] May 18, 2018 08:51 AM VA-TOBACCO FORMER USER [place] [facility] [facility] May 18, 2018 08:51 AM VA-TOBACCO QUIT 15 YRS OR MORE [place] [facility] [facility] Nov 02, 2017 08:19 AM QUIT TOBACCO USE > 7 YEARS AGO [place] [facility] [facility] Nov 04, 2016 09:14 AM QUIT TOBACCO USE > 7 YEARS AGO [place] [facility] [facility] Sep 21, 2015 09:08 AM QUIT TOBACCO USE > 7 YEARS AGO . [place] [facility] [facility] [facility] Jan 17, 2013 02:27 PM QUIT TOBACCO USE > 7 YEARS AGO . [place] [facility]TR [facility] [facility] Encounter Notes: All associated encounter notes This section contains the clinical notes associated to the Encounter. Date/Time Encounter Note(s) Provider Source Jan 05, 2024 02:00 PM CLERICAL NOTE: LOCAL TITLE: APPOINTMENT NO SHOW STANDARD TITLE: CLERICAL NOTE DATE OF NOTE: JAN 05, 2024@14:00 ENTRY DATE: JAN 05, 2024@14:01:10 AUTHOR: CARLTON PENA COSIGNER: URGENCY: STATUS: COMPLETED Patient Name: NENO ABBOTT Patient SSN: [id number] Date and time of Appointment No show : 01/05/24 14:00 PATIENT PHONE - PHONE NUMBER [CELLULAR] - NONE FOUND Patient's medical record was reviewed. Follow-up actions were determined and initiated: Please check/complete as applies: [X]Telephoned Directly [ ]Re-scheduled for next available appt [X]Sent a N0-show letter ( must call for appointment) [ ]Other (Emergent/Overbook, etc.): Additional Comments: LEFT MESSAGE FOR Future Clinic Visits 01/25/2024 11:30 [facility] CARE-GI GENERAL 08/03/2024 15:00 NHM/OPT/VISUAL IMAGING 08/03/2024 15:30 NHM/OPTOMETRY/HA/ /carlos manuel/ CARLTON PENA TIMI Signed: 01/05/2024 14:01 CARLTON PENA CNTRL WSTRN [facility]
--- OUTSIDE RECORDS SUMMARY | 2024-03-07 09:30 | XMS_ITS | Encounter Summary ---
Author Name [facility] [place] Organization [place] Address [address] [place] [address] Care Team Providers Care Business Ethics Professor Name Role Phone AMADOR RICE Primary Care [...] PART B Sep 21, 2015 PART B [id number] NENO ABBOTT JR PATIENT MEDICARE (WNR) MEDICARE (M) PART A Nov 21, 2013 PART A [id number] NENO ABBOTT JR PATIENT MEDICARE (WNR) MEDICARE (M) PART A Nov 21, 2013 PART A [id number] NENO ABBOTT PATIENT MEDICARE (WNR) MEDICARE (M) PART A Nov 21, 2013 PART A [id number] [phone] NENO ABBOTT JR PATIENT Selected Encounter This section includes the information on record at [place] for the Encounter. Date/Time Encounter Type Encounter Description Reason Pro vider Source Dec 23, 2023 08:47 AM Outpatient Encounter OPTOMETRY IHE Encounter Template Text not used by [facility] Plan of Treatment: Future Appointments (+ 6 months) and Future Tests (+/- 45 days) The Plan of Treatment section includes future care activities for the patient from all [place] [facility]. This section includes future appointments and future orders which are active, pending or scheduled. Future Appointments This section includes appointments that were scheduled to occur 6 months from the date of the Encounter, up to a maximum of 20 appointments. The data comes from all [facility]. Appointment Date/Time Appointment Type Appointme nt Facility Name Jan 05, 2024 09:00 AM AMBULATORY - MEDICINE [facility] Jan 13, 2024 10:30 AM AMBULATORY MEDICINE [facility] Mar 07, 2024 10:30 AM AMBULATORY MEDICINE [facility] Active, Pending, and Scheduled Orders This section includes a listing of several types of active, pending, and scheduled orders, including clinic medications orders, diagnostic test orders, procedure orders and consult orders; where the start date of the order is 45 days before the date of the Encounter or 45 days after the date of theEncounter. The data comes from all [facility]. Test Date/Time Test Type Test Details Facility Name Dec 07, 2023 02:36 PM Consult Order COMMUNITY CARE-GI GENERAL Cons Sales Executive's Choice [facility] Dec 17, 2023 09:06 AM Consult Order COMMUNITY CARE-MRI Cons Sales Executive's Choice [facility] Dec 24, 2023 12:00 AM Laboratory - Chemi stry Order BASIC METABOLIC PANEL (fasting) BLOOD (SST-SERUM) [facility] Dec 24, 2023 12:00 AM Laboratory - Chemi stry Order LIVER FUNCTION BLOOD (SST-SERUM) [facility] Dec 24, 2023 12:00 AM Laboratory - Chemi stry Order URIC ACID BLOOD (SST-SERUM) [facility] Dec 24, 2023 12:00 AM Laboratory - Chemi stry Order LIPID PANEL FASTING BLOOD (SST-SERUM) [facility] Social History: Smoking Status (Most current) and Tobacco Use (All prior to encounter date) This section includes the most current, and the historical, smoking and tobacco- related health factors from the [place] facility where the Encounter took place. Current Smoking Status This section includes the most current smoking, or tobacco-related health factor, from the [place] facility where the Encounter took place. Date/Time Current Smoking Status Comment Facil ity Mar 05, 2023 01:21 PM VA-TOBACCO NEVER USED [place] [facility] Tobacco Use History This section includes a history of the smoking, or tobacco-related health factors, that were collected on or before the date of the Encounter. The data comes from the [place] facility where the Encounter took place. Date/Time Smoking Status/Tobacco Use Comment F acility Dec 24, 2021 11:30 AM VA-TOBACCO NEVER USED [place] CN[facility] [place] [facility] Dec 28, 2020 03:30 PM VA-TOBACCO NEVER USED [place] [facility] [place] [facility] Dec 21, 2019 09:00 AM VA-TOBACCO FORMER USER [place] CNTR[facility] [place] [facility] Dec 21, 2019 09:00 AM VA-TOBACCO QUIT 15 YRS OR MORE [place] [facility] [place] [facility] May 18, 2018 08:51 AM VA-TOBACCO FORMER USER [place] [facility] [place] [facility] May 18, 2018 08:51 AM VA-TOBACCO QUIT 15 YRS OR MORE [place] [facility] [place] [facility] Nov 02, 2017 08:19 AM QUIT TOBACCO USE > 7 YEARS AGO [facility] [place] [facility] Nov 04, 2016 09:14 AM QUIT TOBACCO USE > 7 YEARS AGO [place] [facility] [place] [facility] Sep 21, 2015 09:08 AM QUIT TOBACCO USE > 7 YEARS AGO . [place] [facility] [place] [facility] Jan 17, 2013 02:27 PM QUIT TOBACCO USE > 7 YEARS AGO . [place] [facility] [place] [facility] Encounter Notes: All associated encounter notes This section contains the clinical notes associated to the Encounter. Date/Time Encounter Note(s) Provider Source Dec 23, 2023 08:47 AM ADMINISTRATIVE NOT E: LOCAL TITLE: ADMINISTRATIVE NOTE STANDARD TITLE: ADMINISTRATIVE NOTE DATE OF NOTE: DEC 23, 2023@08:47 ENTRY DATE: DEC 23, 2023@08:47:45 AUTHOR: FRANCESCO AVINA COSIGNER: URGENCY: STATUS: COMPLETED Johnson called to reschedule wew RTC was entered as Imaging RTC was no longer there after cx by cl. PID [id number]/[email or web address] /carlos manuel/ FRANCESCO AVINA HEALTH CARE RECRUITER Signed: 12/23/2023 08:49 FRANCESCO AVINA [place] [facility]
--- OUTSIDE RECORDS SUMMARY | 2024-03-07 09:31 | XMS_ITS ---
Author Name [facility] [place] [facility] Address [address] [place] [address] Care Team Providers Care Steam Crane Operator Name Role Phone DWAYNE AMADOR Primary Care Provider Unavail able Insurance Providers: [...] PART B Sep 21, 2015 PART B [id number] [phone] NENO ABBOTT JR PATIENT MEDICARE (WNR) MEDICARE (M) PART A Nov 21, 2013 PART A [id number] NENO ABBOTT JR PATIENT MEDICARE (WNR) MEDICARE (M) PART A Nov 21, 2013 PART A [id number] [phone] NENO ABBOTT PATIENT MEDICARE (WNR) MEDICARE (M) PART A Nov 21, 2013 PART A [id number] [phone] NENO ABBOTT JR PATIENT Selected Encounter This section includes the information on record at [place] for the Encounter. Date/Time Encounter Type Encounter Description Reason Provider Source May 29, 2023 01:45 PM CMPTR OPHTH IMG OPTIC NERVE OPTOMETRY ICD-10-CM H40.1131 Primary open-angle glaucoma, bilateral, mild stage JCAOB HA E Encounter Template Text not used by [place] Assessments - Encounter Diagnoses This section includes the primary and secondary diagnoses documented for the Encounter. Date/Time Primary/Secondary Diagnosis Diagnosis Name Provider Source May 29, 2023 02:46 PM PRIMARY Primary open-angle glaucoma, bilateral, mild stage JACOB HA [facility] Plan of Treatment: Future Appointments (+ 6 months) and Future Tests (+/- 45 days) The Plan of Treatment section includes future care activities for the patient from all [place] treatmentfacilities. This section includes future appointments and future orders which are active, pending or scheduled. Future Appointments This section includes appointments that were scheduled to occur 6 months from the date of the Encounter, up to a maximum of 20 appointments. The data comes from all [place] treatment facilities. Appointment Date/Time Appointment Type Appointme nt Facility Name Jun 05, 2023 09:00 AM AMBULATORY - MEDICINE [facility] Oct 20, 2023 02:00 PM AMBULATORY - MEDICINE [facility] Lab Results: +/- 30 days of the encounter This section includes the Chemistry and Hematology Lab Results on record with [place] for the patient. Radiology Reports and Pathology Reports are provided separately, in subsequent sections. Lab Results This section contains the Chemistry/Hematology Results that were resulted 30 days before or 30 daysafter the date of the Encounter. Date/Time Source Result Type Result - Unit Interpretation Reference Range Comment Jun 05, 2023 08:07 AM [facility] URIC ACID Specimen Type: SERUM No comment entered. Ordering Provider: AISHA RICE Report Released Date/Time: May 27, 2023 11:14 AM Reporting Lab: [facility] [address] [facility] [address] Performing Lab: [facility] [address] [facility] [address] URIC ACID 5.2 mg/dL 3.5-7.2 Jun 05, 2023 08:07 AM [facility] LIPID PANEL FASTING Specimen Type: SERUM No comment entered. Ordering Provider: AISHA RICE Report Released Date/Time: May 27, 2023 11:14 AM Reporting Lab: [facility] [address] [facility] [address] Performing Lab: [address] [address] CHOLESTEROL 180 mg/dL TRIGLYCERIDE 79 mg/dL 0-150 LDL calculated 105 mg/dL 0-129 CHOL/HDL 3.1 HDL CHOLESTEROL 59 mg/dL 40-60 Jun 05, 2023 08:07 AM [facility] LIVER FUNCTION Specimen Type: SERUM No comment entered. Ordering Provider: AISHA RICE Report Released Date/Time: May 27, 2023 11:14 AM Reporting Lab: [address] [address] Performing Lab: [address] [address] PROTEIN,TOTAL 6.9 g/dL 6.0-8.3 ALBUMIN 3.7 g/dL 3.5-5.0 ALKALINE PHOSPHATASE 45 U/L 40-150 AST 24 U/L 5-34 ALT 20 U/L BILIRUBIN, TOTAL 0.5 mg/dL 0.2-1.2 Jun 05, 2023 08:07 AM [facility] BASIC METABOLIC PANEL (fasting) Specimen Type: SERUM No comment entered. Ordering Provider: AISHA RICE Report Released Date/Time: May 27, 2023 11:14 AM Reporting Lab: [address] [address] Performing Lab: [address] [address] UREA NITROGEN 28 mg/dL H 7-25 GLUCOSE 102 mg/dL H 65-100 SODIUM 140 mmol/L 135-145 POTASSIUM 3.9 mmol/L 3.5-5.0 CHLORIDE 103 mmol/L 100-110 CO2 24 meq/L 20-30 CREATININE, Serum 1.08 mg/dL 0.50-1.40 eGFR(CKD-EPI 2020) 72 mL/min >60 Social History: Smoking Status (Most current) and Tobacco Use (All prior to encounter date) This section includes the most current, and the historical, smoking and tobacco- related health factors from the [place] facility where the Encounter took place. Current Smoking Status This section includes the most current smoking, or tobacco-related health factor, from the [place] facility where the Encounter took place. Date/Time Current Smoking Status Comment Nusrat ity Mar 05, 2023 01:21 PM VA-TOBACCO NEVER USED [place] [facility] [place] [facility] Tobacco Use History This section includes a history of the smoking, or tobacco-related health factors, that were collected on or before the date of the Encounter. The data comes from the [place] facility where the Encounter took place. Date/Time Smoking Status/Tobacco Use Comment F acility Dec 24, 2021 11:30 AM VA-TOBACCO NEVER USED [place] [facility] [place] [facility] Dec 28, 2020 03:30 PM VA-TOBACCO NEVER USED [place] [facility] [place] [facility] Dec 21, 2019 09:00 AM VA-TOBACCO FORMER USER [place] [facility] [place] [facility] Dec 21, 2019 09:00 AM VA-TOBACCO QUIT 15 YRS OR MORE [place] [facility] [place] [facility] May 18, 2018 08:51 AM VA-TOBACCO FORMER USER [place] [facility] [place] [facility] May 18, 2018 08:51 AM VA-TOBACCO QUIT 15 YRS OR MORE [place] [facility] [place] [facility] Nov 02, 2017 08:19 AM QUIT TOBACCO USE > 7 YEARS AGO [place] [facility] [place] [facility] Nov 04, 2016 09:14 AM QUIT TOBACCO USE > 7 YEARS AGO [place] [facility] [place] [facility] Sep 21, 2015 09:08 AM QUIT TOBACCO USE > 7 YEARS AGO . [place] [facility] [place] [facility] Jan 17, 2013 02:27 PM QUIT TOBACCO USE > 7 YEARS AGO . [place] [facility] [place] [facility] Encounter Notes: All associated encounter notes This section contains the clinical notes associated to the Encounter. Date/Time Encounter Note(s) Provider Source May 29, 2023 02:03 PM OPTOMETRY CONSULT: LOCAL TITLE: CONSULT REPORT/OPTOMETRY OCT STANDARD TITLE: OPTOMETRY CONSULT DATE OF NOTE: MAY 29, 2023@14:03 ENTRY DATE: MAY 29, 2023@14:03:24 AUTHOR: ANDERS MOON: JACOB HA URGENCY: STATUS: COMPLETED CONSULT REPORT/OPTOMETRY OCT Has ADDENDA RNFL OCT report: RNFL OCT reviewed for Mild Primary Open-Angle Glaucoma OU OD: average c/d 0.60, vertical c/d 0.58, disc area 1.60 mm^2. Average RNFL thickness 86 microns. No thinning noted all quadrants. OS: average c/d 0.68, vertical c/d 0.64, disc area 1.55 mm^2. Average RNFL thickness 68 microns. Thinning in inferior and temporal quadrants. No thinning noted in superior or nasal quadrants. A/P: Mild Primary Open-Angle Glaucoma OU - Normotensive IOP today, well controlled with latanoprost - Optic nerve appearance stable and healthy - No signs of glaucomatous damage or progression of VF or OCT today - No family history of glaucoma - Patient educated on today's findings and nature of glaucoma. Stressed importance of adherence to treatment and follow up schedule as glaucoma is a chronic, progressive, potentially blinding condition. - Continue latanoprost QHS OU - RTC in 6 months for glaucoma follow up and repeat imaging /carlos manuel/ ANDERS MOON OPTOMETRY STUDENT Signed: 05/29/2023 14:52 /carlos manuel/ JACOB HA OD DIRECTOR OF RADIO SERVICES Cosigned: 05/29/2023 14:53 05/29/2023 ADDENDUM STATUS: COMPLETED The optometry internet sales representative participated in this exam. I saw this [place] in conjunction with the optometry student. The visual images were captured by the optometry health auto body technician. Results of testing assessed by the student and reviewed by myself. [place]'s history, complaints and student's findings and plan reviewed. I reviewed and agree with the stated findings, assessment and plan. I have added/edited the documentation to reflect my exam findings and changes to the assessment and plan. /carlos manuel/ JACOB HA OD DIRECTOR OF RADIO SERVICES Signed: 05/29/2023 14:53 ANDERS MOON [facility]
--- OUTSIDE RECORDS SUMMARY | 2024-03-07 09:31 | XMS_ITS ---
Author Name Department [place] Organization [facility] [place] Address [address] [place] [address] Care Team Providers Care Assault Boat Coxswain Name Role Phone AMADOR RICE Primary Care [...] PART B Sep 21, 2015 PART B [id number] [phone] NENO ABBOTT JR PATIENT MEDICARE (WNR) MEDICARE (M) PART A Nov 21, 2013 PART A [id number] [phone] NENO ABBOTT JR PATIENT MEDICARE (WNR) MEDICARE (M) PART A Nov 21, 2013 PART A [id number] NENO ABBOTT PATIENT MEDICARE (WNR) MEDICARE (M) PART A Nov 21, 2013 PART A [id number] NENO ABBOTT JR PATIENT Selected Encounter This section includes the information on record at [place] for the Encounter. Date/Time Encounter Type Encounter Description Reason Pro vider Source Jun 05, 2023 12:00 AM Outpatient Encounter EVENT (HISTORICAL) IHE Encounter Template Text not used by [place] Plan of Treatment: Future Appointments (+ 6 months) and Future Tests (+/- 45 days) The Plan of Treatment section includes future care activities for the patient from all [place] treatmentfacilities. This section includes future appointments and future orders which are active, pending or scheduled. Future Appointments This section includes appointments that were scheduled to occur 6 months from the date of the Encounter, up to a maximum of 20 appointments. The data comes from all [place] treatment facilities. Appointment Date/Time Appointment Type Appointme nt Facility Name Oct 20, 2023 02:00 PM AMBULATORY - MEDICINE [facility] Lab Results: +/- 30 days of the encounter This section includes the Chemistry and Hematology Lab Results on record with [place] for the patient. Radiology Reports and Pathology Reports are provided separately, in subsequent sections. Lab Results This section contains the Chemistry/Hematology Results that were resulted 30 days before or 30 daysafter the date of the Encounter. Date/Time Source Result Type Result - Unit Interpretation Reference Range Comment Jun 05, 2023 08:07 AM [facility] URIC ACID Specimen Type: SERUM No comment entered. Ordering Provider: AISHA RICE Report Released Date/Time: May 27, 2023 11:14 AM Reporting Lab: [facility] [address] [facility] [address] Performing Lab: [facility] [address] [facility] [address] URIC ACID 5.2 mg/dL 3.5-7.2 Jun 05, 2023 08:07 AM [facility] LIPID PANEL FASTING Specimen Type: SERUM No comment entered. Ordering Provider: AISHA RICE Report Released Date/Time: May 27, 2023 11:14 AM Reporting Lab: [facility] [address] [facility] [address] Performing Lab: [facility] [address] [facility] [address] CHOLESTEROL 180 mg/dL TRIGLYCERIDE 79 mg/dL 0-150 LDL calculated 105 mg/dL 0-129 CHOL/HDL 3.1 HDL CHOLESTEROL 59 mg/dL 40-60 Jun 05, 2023 08:07 AM [facility] LIVER FUNCTION Specimen Type: SERUM No comment entered. Ordering Provider: AISHA RICE Report Released Date/Time: May 27, 2023 11:14 AM Reporting Lab: [facility] [address] [facility] [address] Performing Lab: [facility] [address] [facility] [address] PROTEIN,TOTAL 6.9 g/dL 6.0-8.3 ALBUMIN 3.7 g/dL 3.5-5.0 ALKALINE PHOSPHATASE 45 U/L 40-150 AST 24 U/L 5-34 ALT 20 U/L BILIRUBIN, TOTAL 0.5 mg/dL 0.2-1.2 Jun 05, 2023 08:07 AM [facility] BASIC METABOLIC PANEL (fasting) Specimen Type: SERUM No comment entered. Ordering Provider: AISHA RICE Report Released Date/Time: May 27, 2023 11:14 AM Reporting Lab: [facility] [address] [facility] [address] Performing Lab: [address] [address] UREA NITROGEN 28 mg/dL H 7-25 GLUCOSE 102 mg/dL H 65-100 SODIUM 140 mmol/L 135-145 POTASSIUM 3.9 mmol/L 3.5-5.0 CHLORIDE 103 mmol/L 100-110 CO2 24 meq/L 20-30 CREATININE, Serum 1.08 mg/dL 0.50-1.40 eGFR(CKD-EPI 2020) 72 mL/min >60 Vital Signs: All taken on the encounter date This section contains inpatient and outpatient Vital Signs collected on the date of the Encounter. Date/Time Temperature Pulse Blood Pressure Respiratory Rate SP02 Pain Height Weight Body Mass Index Source Jun 05, 2023 08:47 AM 98.4 80 124/64 16 96 0 206 30 [facility] Social History: Smoking Status (Most current) and Tobacco Use (All prior to encounter date) This section includes the most current, and the historical, smoking and tobacco- related health factors from the [place] facility where the Encounter took place. Current Smoking Status This section includes the most current smoking, or tobacco-related health factor, from the [place] facility where the Encounter took place. Date/Time Current Smoking Status Comment Nusrat ity Mar 05, 2023 01:21 PM [facility] [place] [facility] Tobacco Use History This section includes a history of the smoking, or tobacco-related health factors, that were collected on or before the date of the Encounter. The data comes from the [place] facility where the Encounter took place. Date/Time Smoking Status/Tobacco Use Comment F acility Dec 24, 2021 11:30 AM VA-TOBACCO NEVER USED [place] [facility] [place] [facility] Dec 28, 2020 03:30 PM VA-TOBACCO NEVER USED [place] [facility] [place] [facility] Dec 21, 2019 09:00 AM VA-TOBACCO FORMER USER [place] [facility] [place] [facility] Dec 21, 2019 09:00 AM VA-TOBACCO QUIT 15 YRS OR MORE [place] [facility] [facility] May 18, 2018 08:51 AM VA-TOBACCO FORMER USER [place] [facility] [place] [facility] May 18, 2018 08:51 AM VA-TOBACCO QUIT 15 YRS OR MORE [place] [facility] [place] [facility] Nov 02, 2017 08:19 AM QUIT TOBACCO USE > 7 YEARS AGO [place] [facility] [place] [facility] Nov 04, 2016 09:14 AM QUIT TOBACCO USE > 7 YEARS AGO [place] [facility] [place] [place] [facility] Sep 21, 2015 09:08 AM QUIT TOBACCO USE > 7 YEARS AGO . [place] [facility] [place] [facility] Jan 17, 2013 02:27 PM QUIT TOBACCO USE > [address] A[address] . [facility] [place] [facility]
--- OUTSIDE RECORDS SUMMARY | 2024-03-07 09:31 | XMS_ITS ---
Author Name [facility] [place] Organization [facility] [place] Address [address] [place] [address] Care Team Providers Care Language Assistant Name Role Phone DWAYNE AMADOR Primary Care [...] PART B Sep 21, 2015 PART B [id number] NENO ABBOTT JR PATIENT MEDICARE (WNR) MEDICARE (M) PART A Nov 21, 2013 PART A [id number] [phone] NENO ABBOTT JR PATIENT MEDICARE (WNR) MEDICARE (M) PART A Nov 21, 2013 PART A [id number] [phone] NENO ABBOTT PATIENT MEDICARE (WNR) MEDICARE (M) PART A Nov 21, 2013 PART A [id number] PA85 NENO ABBOTT JR PATIENT Selected Encounter This section includes the information on record at [place] for the Encounter. Date/Time Encounter Type Encounter Description Reason Pro vider Source Oct 13, 2023 01:24 PM Outpatient Encounter ADMIN PAT ACTIVTIES (MASNONCT) IHE Encounter Template Text not used by [place] Plan of Treatment: Future Appointments (+ 6 months) and Future Tests (+/- 45 days) The Plan of Treatment section includes future care activities for the patient from all [place] [facility]. This section includes future appointments and future orders which are active, pending or scheduled. Future Appointments This section includes appointments that were scheduled to occur 6 months from the date of the Encounter, up to a maximum of 20 appointments. The data comes from all [place] treatment facilities. Appointment Date/Time Appointment Type Appointme nt Facility Name Oct 20, 2023 02:00 PM AMBULATORY [place]ICINE [place] [facility] [place] [facility] Jan 05, 2024 09:00 AM AMBULATORY [place]ICINE [place] [facility] [place] [facility] Jan 13, 2024 10:30 AM AMBULATORY [place]ICINE [place] [facility] [facility] Mar 07, 2024 10:30 AM AMBULATORY [place]ICINE [place] [facility] [place] [facility] Social History: Smoking Status (Most current) and Tobacco Use (All prior to encounter date) This section includes the most current, and the historical, smoking and tobacco- related health factors from the [place] facility where the Encounter took place. Current Smoking Status This section includes the most current smoking, or tobacco-related health factor, from the [place] facility where the Encounter took place. Date/Time Current Smoking Status Comment Facil ity Mar 05, 2023 01:21 PM VA-TOBACCO NEVER USED [place] [facility] [place] [facility] Tobacco Use History This section includes a history of the smoking, or tobacco-related health factors, that were collected on or before the date of the Encounter. The data comes from the [place] facility where the Encounter took place. Date/Time Smoking Status/Tobacco Use Comment F acility Dec 24, 2021 11:30 AM VA-TOBACCO NEVER USED [place] [facility] [facility] Dec 28, 2020 03:30 PM VA-TOBACCO NEVER USED [place] [facility] [facility] Dec 21, 2019 09:00 AM VA-TOBACCO FORMER USER [place] [facility] [place] [facility] Dec 21, 2019 09:00 AM VA-TOBACCO QUIT 15 YRS OR MORE [place] [facility] [facility] May 18, 2018 08:51 AM VA-TOBACCO FORMER USER [place] [facility] [facility] May 18, 2018 08:51 AM VA-TOBACCO QUIT 15 YRS OR MORE [facility] Nov 02, 2017 08:19 AM QUIT TOBACCO USE > 7 YEARS AGO [facility] Nov 04, 2016 09:14 AM QUIT TOBACCO USE > 7 YEARS AGO [facility] Sep 21, 2015 09:08 AM QUIT TOBACCO USE > 7 YEARS AGO . [facility] Jan 17, 2013 02:27 PM QUIT TOBACCO USE > 7 YEARS AGO . [facility] Encounter Notes: All associated encounter notes This section contains the clinical notes associated to the Encounter. Date/Time Encounter Note(s) Provider Source Oct 13, 2023 01:27 PM ADDENDUM: LOCAL TITLE: Addendum STANDARD TITLE: ADDENDUM DATE OF NOTE: OCT 13, 2023@13:27:13 ENTRY DATE: OCT 13, 2023@13:27:14 AUTHOR: ROBIN BELLE EXP COSIGNER: URGENCY: STATUS: COMPLETED Forwarding to [facility] to schedule with PCP. /carlos manuel/ ROBIN BELLE RN REGISTERED NURSE Signed: 10/13/2023 13:27 Receipt Acknowledged By: 10/13/2023 13:45 /carlos manuel/ LATASHA VARGAS ADVANCED PROOF TESTER for CARLTON PENA === --- Original Document --- 10/13/23 CCC: SCHEDULING ADMINISTRATION: Patient Demographics Patient Name: NENO ABBOTT Patient Primary Phone: [phone] Patient Primary Address: [address] [place] [address] Patient : 1950 Patient Age: 72 Caller/Recipient Relation to Patient: Caregiver Caller Name: clementina Scheduling Cannot Complete Scheduling Action Reason: Restricted / Unavailable Clinic Requested Service(s): Primary Care Scheduling Note Reason: Cannot Complete Appointment Request Scheduling Note Comments: Pedrito calling to inform pact that had emergency surgery last week for a laparotomy, was at [facility] and discharged 10/10/2023, please call back to schedule [phone] Open Request: None of the above /carlos manuel/ RONALD Edmonds [facility] Signed: 10/13/2023 13:24 Receipt Acknowledged By: 10/13/2023 13:27 /es/ ROBIN BELLE, CAMI REGISTERED NURSE * AWAITING SIGNATURE * ROBY HURTADO 10/13/2023 ADDENDUM STATUS: COMPLETED spoke to and scheduled appointment. /es/ LATASHA VARGAS ADVANCED PROOF TESTER Signed: 10/13/2023 13:46 ROBIN BELLE [place] [facility] Oct 13, 2023 01:24 PM ADMINISTRATIVE NOTE: LOCAL TITLE: [facility]: SCHEDULING ADMINISTRATION STANDARD TITLE: ADMINISTRATIVE NOTE DATE OF NOTE: OCT 13, 2023@13:24:20 ENTRY DATE: OCT 13, 2023@13:24:21 AUTHOR: RONALD FARAH COSIGNER: URGENCY: STATUS: COMPLETED CCC: SCHEDULING ADMINISTRATION Has ADDENDA Patient Demographics Patient Name: NENO ABBOTT Patient Primary Phone: [phone] Patient Primary Address: [address] [place] [address] Patient : 1950 Patient Age: 72 Caller/Recipient Relation to Patient: Caregiver Caller Name: clementina Scheduling Cannot Complete Scheduling Action Reason: Restricted / Unavailable Clinic Requested Service(s): Primary Care Scheduling Note Reason: Cannot Complete Appointment Request Scheduling Note Comments: Pedrito calling to inform pact that had emergency surgery last week for a laparotomy, was at [facility] and discharged 10/10/2023, please call back to schedule [phone] Open Request: None of the above /carlos manuel/ RONALD ROMANO 1 [facility] Signed: 10/13/2023 13:24 Receipt Acknowledged By: 10/13/2023 13:27 /carlos manuel/ ROBIN BELLE, CAMI REGISTERED NURSE 10/13/2023 14:56 /es/ ROBY HURTADO LPN 10/13/2023 ADDENDUM STATUS: COMPLETED Forwarding to [facility] to schedule with PCP. /es/ ROBIN BELLE, RN REGISTERED NURSE Signed: 10/13/2023 13:27 Receipt Acknowledged By: 10/13/2023 13:45 /es/ LATASHA VARGAS ADVANCED PROOF TESTER for CARLTON PENA 10/13/2023 ADDENDUM STATUS: COMPLETED spoke to and scheduled appointment. /carlos manuel/ LATASHA VARGAS ADVANCED PROOF TESTER Signed: 10/13/2023 13:46 [facility]
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
--- OUTSIDE RECORDS SUMMARY | 2024-03-07 09:31 | XMS_ITS ---
Author Name [facility] ([place]) Organization [facility] Address [address] [place] [address] Care Team Providers Care Video Engineer Name Role Phone RAY TORRES Primary Care [...] PART B Sep 21, 2015 PART B [id number] [id number] [phone] NENO ABBOTT JR PATIENT MEDICARE (WNR) MEDICARE (M) PART A Nov 21, 2013 PART A [id number] NENO ABBOTT JR PATIENT MEDICARE (WNR) MEDICARE (M) PART A Nov 21, 2013 PART A [id number] [phone] NENO ABBOTT PATIENT MEDICARE (WNR) MEDICARE (M) PART A Nov 21, 2013 PART A [id number] [phone] NENO ABBOTT JR PATIENT Selected Encounter This section includes the information on record at ID for the Encounter. Date/Time Encounter Type Encounter Description Reason Provider Source Jun 05, 2023 09:00 AM OFFICE O/P EST LOW 20 MIN PRIMARY CARE/MEDICINE ICD-10-CM Z77.29 Contact with and exposure to other hazardous substances NATHAN TORRES IHE Encounter Template Text not used by ID Assessments - Encounter Diagnoses This section includes the primary and secondary diagnoses documented for the Encounter. Date/Time Primary/Secondary Diagnosis Diagnosis Name Provider Source Jun 05, 2023 09:17 AM PRIMARY Contact with and exposure to other hazardous substances [facility] Jun 05, 2023 09:17 AM SECONDARY Encounter for immunization [facility] Jun 05, 2023 09:17 AM SECONDARY Hypertensive heart disease without heart failure AISHA TORRES [facility] Plan of Treatment: Future Appointments (+ 6 months) and Future Tests (+/- 45 days) The Plan of Treatment section includes future care activities for the patient from all ID treatmentfacilities. This section includes future appointments and future orders which are active, pending or scheduled. Future Appointments This section includes appointments that were scheduled to occur 6 months from the date of the Encounter, up to a maximum of 20 appointments. The data comes from all ID treatment facilities. Appointment Date/Time Appointment Type Appointme nt Facility Name Oct 20, 2023 02:00 PM AMBULATORY - MEDICINE [facility] Lab Results: +/- 30 days of the encounter This section includes the Chemistry and Hematology Lab Results on record with ID for the patient. Radiology Reports and Pathology Reports are provided separately, in subsequent sections. Lab Results This section contains the Chemistry/Hematology Results that were resulted 30 days before or 30 daysafter the date of the Encounter. Date/Time Source Result Type Result - Unit Interpretation Reference Range Comment Jun 05, 2023 08:07 AM [facility] URIC ACID Specimen Type: SERUM No comment entered. Ordering Provider: AISHA TORRES Report Released Date/Time: May 27, 2023 11:14 AM Reporting Lab: [facility] [address] [facility] [address] Performing Lab: [address] [address] URIC ACID 5.2 mg/dL 3.5-7.2 Jun 05, 2023 08:07 AM [facility] LIPID PANEL FASTING Specimen Type: SERUM No comment entered. Ordering Provider: AISHA TORRES Report Released Date/Time: May 27, 2023 11:14 AM Reporting Lab: [facility] [address] [facility] [address] Performing Lab: [facility] [address] [facility] [address] CHOLESTEROL 180 mg/dL TRIGLYCERIDE 79 mg/dL 0-150 LDL calculated 105 mg/dL 0-129 CHOL/HDL 3.1 HDL CHOLESTEROL 59 mg/dL 40-60 Jun 05, 2023 08:07 AM [facility] LIVER FUNCTION Specimen Type: SERUM No comment entered. Ordering Provider: AISHA TORRES Report Released Date/Time: May 27, 2023 11:14 AM Reporting Lab: [facility] [address] [facility] [address] Performing Lab: [address] [address] PROTEIN,TOTAL 6.9 g/dL 6.0-8.3 ALBUMIN 3.7 g/dL 3.5-5.0 ALKALINE PHOSPHATASE 45 U/L 40-150 AST 24 U/L 5-34 ALT 20 U/L BILIRUBIN, TOTAL 0.5 mg/dL 0.2-1.2 Jun 05, 2023 08:07 AM [facility] BASIC METABOLIC PANEL (fasting) Specimen Type: SERUM No comment entered. Ordering Provider: AISHA TORRES Report Released Date/Time: May 27, 2023 11:14 AM Reporting Lab: [facility] [address] [facility] [address] Performing Lab: [address] [address] UREA NITROGEN 28 mg/dL H 7-25 GLUCOSE [...] 80 124/64 16 96 0 206 30 [place] [facility] [place] [facility] Immunizations: All administered on the encounter date This section contains immunizations associated to the Encounter. Immunization Series Date Issued Reaction Comments INFLUENZA, HIGH-DOSE, QUADRIVALENT Jun 05, 2023 Social History: Smoking Status (Most current) and [...] PM VA-TOBACCO NEVER USED ID [facility] Tobacco Use History This section includes a history of the smoking, or tobacco-related health factors, that were collected on or before the date of the Encounter. The data comes from the ID facility where the Encounter took place. Date/Time Smoking Status/Tobacco Use Comment F acility Dec 24, 2021 11:30 AM VA-TOBACCO NEVER USED VA [facility] [place] [facility] Dec 28, 2020 03:30 PM VA-TOBACCO NEVER USED VA [facility] [place] [facility] Dec 21, 2019 09:00 AM VA-TOBACCO FORMER USER VA [facility] [place] [facility] Dec 21, 2019 09:00 AM VA-TOBACCO QUIT 15 YRS OR MORE [facility] [place] [facility] May 18, 2018 08:51 AM VA-TOBACCO FORMER USER [facility] [place] [facility] May 18, 2018 08:51 AM VA-TOBACCO QUIT 15 YRS OR MORE [facility] [place] [facility] Nov 02, 2017 08:19 AM QUIT TOBACCO USE > 7 YEARS AGO [facility] [place] [facility] Nov 04, 2016 09:14 AM QUIT TOBACCO USE > 7 YEARS AGO [facility] Sep 21, 2015 09:08 AM QUIT TOBACCO USE > 7 YEARS AGO . [facility] Jan 17, 2013 02:27 PM QUIT TOBACCO USE > 7 YEARS AGO . [facility] Encounter Notes: All associated encounter notes This section contains the clinical notes associated to the Encounter. Date/Time Encounter Note(s) Provider Source Jun 05, 2023 10:41 AM LETTERS: LOCAL TITLE: PATIENT LETTER (B) STANDARD TITLE: LETTERS DATE OF NOTE: JUN 05, 2023@10:41 ENTRY DATE: JUN 05, 2023@10:41:11 AUTHOR: RAY TORRES COSIGNER: URGENCY: STATUS: COMPLETED The following letter was mailed to NENO ABBOTT on JUN 05, 2023 NENO ABBOTT [address] [place] [id number] JUN 05, 2023 Dear MILENANENO, : Nov Your recent labs were as expected. No change in your care plan is needed. Please share with any NONVA providers. Labs are viewable thru [facility]. Collection time: Jun 05, 2023@08:07 Test Name Result Units Range --------- ------ ----- ----- SODIUM 140 mmol/L 135 - 145 POTASSIUM 3.9 mmol/L 3.5 - 5.0 CHLORIDE 103 mmol/L 100 - 110 CO2 24 mEq/L 20 - 30 UREA NITROGEN 28 H mg/dL 7 - 25 GLUCOSE 102 H mg/dL 65 - 100 URIC ACID 5.2 mg/dL 3.5 - 7.2 PROTEIN,TOTAL 6.9 g/dL 6.0 - 8.3 ALBUMIN 3.7 g/dL 3.5 - 5.0 ALKALINE PHOSPHATASE 45 U/L 40 - 150 AST 24 U/L 5 - 34 BILIRUBIN, TOTAL 0.5 mg/dL 0.2 - 1.2 CHOLESTEROL 180 mg/dL <7 - 199 TRIGLYCERIDE 79 mg/dL 0 - 150 LDL calculated 105 mg/dL 0 - 129 CHOL/HDL 3.1 ALT 20 U/L <6 - 55 HDL CHOLESTEROL 59 mg/dL 40 - 60 CREATININE, Serum 1.08 mg/dL 0.50 - 1.40 eGFR(CKD-EPI 2020) 72 mL/min Ref: >=60 Below are your pending appointments at the [facility]: 12/25/2023 14:30 NHM/OPT/VISUAL IMAGING 12/25/2023 15:00 NHM/OPTOMETRY/HA/ 01/05/2024 09:00 CWM/NO/PACT 3 If you have questions, please contact me through our Telephone Advice Program at: [phone] extension [phone] or [phone] extension [phone] (toll free in this region only). Sincerely, Ray Torres PA-C [facility] [address] [place] [address] [id number] RAY TORRES ID [facility] [place] [facility] Jun 05, 2023 08:56 AM PHYSICIAN HEALTH AND SAFETY TECH NOTE: LOCAL TITLE: FADUMO NOTE STANDARD TITLE: PHYSICIAN HEALTH AND SAFETY TECH NOTE DATE OF NOTE: JUN 05, 2023@08:56 ENTRY DATE: JUN 05, 2023@08:56:25 AUTHOR: RAY TORRES EXP COSIGNER: URGENCY: STATUS: COMPLETED CC/HPI/A/P: 72 year old MALE here in follow-up for; Htn, bp wnl on 2 meds, just had blood drawn for labs. Dyslipidemia, on statin. Gout, none on Allopurinol. glaucoma, sees optom here. Review of systems: Patient reports no changes from [facility], in meds or any admissions. Detailed ROS is negative, done for weight loss. He reports changing his dietary habits and avoiding junk food. I am satisfied for now that their are no underlying causes. Monitor. Active problems - Computerized Problem List is the source for the followin. Tubular adenoma of colon One, on his 06/25/2018 colonoscopy. 2. LOW BACK PAIN, LUMBAGO 3. Diverticular disease of colon On 2002 and 2007 colonoscopy, One HP polyp each as well. Colonoscopy 07/2013 No polyps 4. Family history of cancer of colon Father 5. Gout 6. Benign hypertension 7. Obesity 8. Gastroesophageal Reflux Disease 9. Hepatitis C Incidental pickup , combination therapy -. Pt acheived SVR after 12 weeks of Vosevi in 2019 SERVICE CONNECTED % - NONE FOUND VA [...] MOUTH DAILY TO ACTIVE CONTROL BLOOD PRESSURE Inactive Outpatient Medications Status 1) AMLODIPINE BESYLATE 10MG TAB TAKE ONE TABLET BY MOUTH ONCE DAILY FOR BLOOD PRESSURE/HEART, DO NOT TAKE WITH GRAPEFRUIT JUICE 6 Total Medications 98.4 F [36.9 C] (06/05/2023 08:47) 80 (06/05/2023 08:47) 16 (06/05/2023 08:47) 124/64 (06/05/2023 08:47) 0 (06/05/2023 08:47) 69.5 in [176.5 cm] (04/07/2019 11:21) 206 lb [93.44 kg] (06/05/2023 08:47) BMI: 30.0 Neuro: Alert and oriented times three, grossly nonfocal, nasolabial folds intact. Toxic Exposure Screening: The [place]/caregiver was asked if they believe the experienced any toxic exposure(s), such as Airborne Hazards and Open Burn Pit, [place] War related exposures, Agent [place], Radiation, contaminated water at [facility] or other such exposures, while serving in the Armed Forces. /caregiver believes the was exposed to the following while serving in the Armed Forces: [place]: /caregiver was made aware of educational resources that includes information on the Registry Program, presumptive conditions and how to file a claim. Printed information was offered and provided if desired. [place]/caregiver has no health or medical concerns related to their concern of environmental exposure. No questions at this time /caregiver was informed of local points of contact. Contact information for local resources: Benefits/Claim for Disability Compensation Questions:National [employer]BA ID Healthcare Enrollment: [facility] Eligibility direct dialed at [phone] Registry: [facility] Health Coordinator ext [phone] The following connections were provided to the /caregiver: No connections needed at this time Follow Up Colonoscopy: Colonoscopy is due based on information available to this reminder. Colonoscopy consult has been ordered. See orders tab for details. COVID-19 Immunization: he has several copies of our advance directives at home, will complete one and bring it with the extras back to us. RHS Screen: RHS Screen Environmental Check Upon inquiry, the individual reports that the environment is safe to proceed. Informed Consent to Screen and Document The individual consents to proceed with screening. The individual consents to documentation of responses. PRIMARY SCREEN: In the past 12 months, how often did a current or former intimate partner (e.g., boyfriend, girlfriend, , , sexual partner): 1. Scream or curse at you Never 2. Insult or talk down to you Never 3. Threaten you with harm Never 4. Physically hurt you Never 5. Force or pressure you to have sexual contact against your will, or when you were unable to say no Never ?? The HITS tool (items 1-4 above) is US copyright protected by Dallas Hicks MD, and the user has full rights to use it throughout the ID system. PRIMARY SCREEN RESULT: The Primary Screen is NEGATIVE. The individual answered never to all forms of IPV above (i.e., answered never to all 5 items) The individual accepts education and/or resources: Other: EDUCATION: Other: /carlos manuel/ Ray Torres PA-C STAFF PHYSICIAN HEALTH AND SAFETY TECH Signed: 06/05/2023 09:17 RAY TORRES [place] [facility] [place] [place] [facility] Jun 05, 2023 08:50 AM PREVENTIVE MEDICINE NURSING NOTE: LOCAL TITLE: CLINICAL REMINDERS/NURSING STANDARD TITLE: PREVENTIVE MEDICINE NURSING NOTE DATE OF NOTE: JUN 05, 2023@08:50 ENTRY DATE: JUN 05, 2023@08:50:11 AUTHOR: SOLO VALLADARES EXP COSIGNER: URGENCY: STATUS: COMPLETED CLINICAL REMINDERS/NURSING Has ADDENDA Homelessness/Food Insecurity Screen: In the past 2 months, have you been living in stable housing that you own, rent, or stay in as part of a household? Yes - Living in stable housing. Are you worried or concerned that in the next 2 months you may NOT have stable housing that you own, rent, or stay in as part of a household? No - Not worried about housing near future The [place] reports the following: Within the past 12 months, you worried whether your food would run out before you got money to buy more. Never true Within the past 12 months, the food you bought just didn't last and you didn't have money to get more. Never true /carlos manuel/ SOLO VALLADARES LPN Signed: 06/05/2023 08:51 06/05/2023 ADDENDUM STATUS: COMPLETED Influenza Immunization: The patient was given the influenza VIS which lists the benefits and side effects of the vaccine and which reviews the risks of not receiving the flu vaccine. The VIS was reviewed with the patient and they were given an opportunity to ask questions. The patient was provided education on how to decrease the risk of influenza infection including social distancing and use of good hand hygiene. The patient denied any prior severe reaction to the flu vaccine or its components. The patient gave verbal consent to receive the vaccine. Influenza, High Dose, Quadrivalent (Fluzone - syringe) Administered: INFLUENZA, HIGH-DOSE, QUADRIVALENT Date Administered: Jun 05, 2023 08:56 Series: Booster Correction Officer Head: [employer] PASTEUR Lot: [id number] Exp Date: Sep 20, 2023 [facility]: [phone] Admin Route/Site: INTRAMUSCULAR/LEFT DELTOID Dosage: 0.7mL Vaccine Information Statement(s): INFLUENZA(FLU) VACC(INACTIVATED OR RECOMBINANT)VIS Oct 26, 2020 (INDIAN) Order By: Policy Administered By: Solo Valladares/ SOLO VALLADARES LPN Signed: 06/05/2023 08:56 ABY VALLADARES [facility]
--- OUTSIDE RECORDS SUMMARY | 2024-03-07 09:31 | XMS_ITS | Encounter Summary ---
Author Name [facility] [place] [place] Organization [facility] [place] [place] Address [address] [place] [address] Care Team Providers Care Collection Card Clerk Name Role Phone AMADOR RICE Primary Care [...] PART B Sep 21, 2015 PART B [id number] [phone] NENO ABBOTT JR PATIENT MEDICARE (WNR) MEDICARE (M) PART A Nov 21, 2013 PART A [id number] [phone] NENO ABBOTT JR PATIENT MEDICARE (WNR) MEDICARE (M) PART A Nov 21, 2013 PART A [id number] NENO ABBOTT PATIENT MEDICARE (WNR) MEDICARE (M) PART A Nov 21, 2013 PART A [id number] PA85 NENO ABBOTT JR PATIENT Selected Encounter This section includes the information on record at [place] for the Encounter. Date/Time Encounter Type Encounter Description Reason Pro vider Source Oct 09, 2023 12:00 AM Outpatient Encounter EVENT (HISTORICAL) IHE Encounter Template Text not used by [place] Plan of Treatment: Future Appointments (+ 6 months) and Future Tests (+/- 45 days) The Plan of Treatment section includes future care activities for the patient from [facility] [place] [facility] This section includes future appointments and future orders which are active, pending or scheduled. Future Appointments This section includes appointments that were scheduled to occur 6 months from the date of the Encounter, up to a maximum of 20 appointments. The data comes from all [place] treatment facilities. Appointment Date/Time Appointment Type Appointme nt Facility Name Oct 20, 2023 02:00 PM AMBULATORY - MEDICINE [place] [facility] [place] [facility] Jan 05, 2024 09:00 AM AMBULATORY - MEDICINE [place] [facility] [facility] Jan 13, 2024 10:30 AM AMBULATORY - MEDICINE [place] [facility] [facility] Mar 07, 2024 10:30 AM AMBULATORY - MEDICINE [place] [facility] [facility] Social History: Smoking Status (Most current) and Tobacco Use (All prior to encounter date) This section includes the most current, and the historical, smoking and tobacco- related health factors from the VA facility where the Encounter took place. Current Smoking Status This section includes the most current smoking, or tobacco-related health factor, from the [place] facility where the Encounter took place. Date/Time Current Smoking Status Comment Facil ity Mar 05, 2023 01:21 PM VA-TOBACCO NEVER USED [place] [facility] [place] [facility] Tobacco Use History This section includes a history of the smoking, or tobacco-related health factors, that were collected on or before the date of the Encounter. The data comes from the [place] facility where the Encounter took place. Date/Time Smoking Status/Tobacco Use Comment F acility Dec 24, 2021 11:30 AM VA-TOBACCO NEVER USED VA [facility] [place] [facility] Dec 28, 2020 03:30 PM VA-TOBACCO NEVER USED VA [facility] [place] [facility] Dec 21, 2019 09:00 AM VA-TOBACCO FORMER USER VA [facility] [place] [facility] Dec 21, 2019 09:00 AM VA-TOBACCO QUIT 15 YRS OR MORE [facility] [place] [facility] May 18, 2018 08:51 AM VA-TOBACCO FORMER USER [facility] [place] [facility] May 18, 2018 08:51 AM VA-TOBACCO QUIT [address] [facility] Nov 02, 2017 08:19 AM QUIT TOBACCO USE > [address] [facility] Nov 04, 2016 09:14 AM QUIT TOBACCO USE > 7 YEARS AGO [facility] Sep 21, 2015 09:08 AM QUIT TOBACCO USE > 7 YEARS AGO . [facility] Jan 17, 2013 02:27 PM QUIT TOBACCO USE > 7 YEARS AGO . [facility] Encounter Notes: All associated encounter notes This section contains the clinical notes associated to the Encounter. Date/Time Encounter Note(s) Provider Source Oct 09, 2023 12:00 AM NONVA NOTE: LOCAL TITLE: NON-VA HOSPITALIZATIONS/ER STANDARD TITLE: NONVA NOTE DATE OF NOTE: OCT 09, 2023 ENTRY DATE: OCT 22, 2023@06:27 AUTHOR: PEDRITO CORREA EXP COSIGNER: URGENCY: STATUS: COMPLETED VistA Imaging - Scanned Document SCANNED DOCUMENT SIGNATURE NOT REQUIRED Electronically Filed: 10/22/2023 by: PEDRITO RUSH [facility]
--- OUTSIDE RECORDS SUMMARY | 2024-03-07 09:31 | XMS_ITS | Encounter Summary ---
Author Name [facility] ([place] Organization [facility] of [facility] ([place] Address [address] [place] [id number] Care Team Providers Care Typesetters Printer Name Role Phone AMADOR RICE Primary Care [...] PART B Sep 21, 2015 PART B [id number] [phone] NENO ABBOTT JR PATIENT MEDICARE (WNR) MEDICARE (M) PART A Nov 21, 2013 PART A [id number] NENO ABBOTT JR PATIENT MEDICARE (WNR) MEDICARE (M) PART A Nov 21, 2013 PART A [id number] NENO ABBOTT PATIENT MEDICARE (WNR) MEDICARE (M) PART A Nov 21, 2013 PART A [id number] [phone] NENO ABBOTT JR PATIENT Selected Encounter This section includes the information on record at [place] for the Encounter. Date/Time Encounter Type Encounter Description Reason Provider Source May 29, 2023 01:30 PM EXTENDED VISUAL FIELD XM OPTOMETRY ICD-10-CM H40.1131 Primary open-angle glaucoma, bilateral, mild stage JACOB HA Encounter Template Text not used by [place] Assessments - Encounter Diagnoses This section includes the primary and secondary diagnoses documented for the Encounter. Date/Time Primary/Secondary Diagnosis Diagnosis Name Provider Source May 29, 2023 02:46 PM PRIMARY Primary open-angle glaucoma, bilateral, mild stage JACOB HA [facility] Plan of Treatment: Future Appointments (+ 6 months) and Future Tests (+/- 45 days) The Plan of Treatment section includes future care activities for the patient from all [place] treatmentfacilities. This section includes future appointments and future orders which are active, pending or scheduled. Future Appointments This section includes appointments that were scheduled to occur 6 months from the date of the Encounter, up to a maximum of 20 appointments. The data comes from all [place] treatment facilities. Appointment Date/Time Appointment Type Appointme nt Facility Name Jun 05, 2023 09:00 AM [facility] - [facility] Oct 20, 2023 02:00 PM [facility]ULATORY - [facility]INE [facility] Lab Results: +/- 30 days of the encounter This section includes the Chemistry and Hematology Lab Results on record with [place] for the patient. Radiology Reports and Pathology Reports are provided separately, in subsequent sections. Lab Results This section contains the Chemistry/Hematology Results that were resulted 30 days before or 30 daysafter the date of the Encounter. Date/Time Source Result Type Result - Unit Interpretation Reference Range Comment Jun 05, 2023 08:07 AM [facility] URIC ACID Specimen Type: SERUM No comment entered. Ordering Provider: AISHA RICE Report Released Date/Time: May 27, 2023 11:14 AM Reporting Lab: [facility] [address] [facility] [facility] [address] Performing Lab: [facility] [address] [facility] [address] URIC ACID 5.2 mg/dL 3.5-7.2 Jun 05, 2023 08:07 AM [facility] LIPID PANEL FASTING Specimen Type: SERUM No comment entered. Ordering Provider: AISHA RICE Report Released Date/Time: May 27, 2023 11:14 AM Reporting Lab: [facility] [address] [facility] [address] Performing Lab: [facility] [address] [facility] [address] CHOLESTEROL 180 mg/dL TRIGLYCERIDE 79 mg/dL 0-150 LDL calculated 105 mg/dL 0-129 CHOL/HDL 3.1 HDL CHOLESTEROL 59 mg/dL 40-60 Jun 05, 2023 08:07 AM [facility] LIVER FUNCTION Specimen Type: SERUM No comment entered. Ordering Provider: AISHA RICE Report Released Date/Time: May 27, 2023 11:14 AM Reporting Lab: [address] [address] Performing Lab: [address] [address] PROTEIN,TOTAL 6.9 g/dL 6.0-8.3 ALBUMIN 3.7 g/dL 3.5-5.0 ALKALINE PHOSPHATASE 45 U/L 40-150 AST 24 U/L 5-34 ALT 20 U/L BILIRUBIN, TOTAL 0.5 mg/dL 0.2-1.2 Jun 05, 2023 08:07 AM [facility] BASIC METABOLIC PANEL (fasting) Specimen Type: SERUM No comment entered. Ordering Provider: AISHA RICE Report Released Date/Time: May 27, 2023 11:14 AM Reporting Lab: [address] [address] Performing Lab: [address] [address] UREA NITROGEN 28 mg/dL H 7-25 GLUCOSE [...] and tobacco- related health factors from the [place] facility where the Encounter took place. Current Smoking Status This section includes the most current smoking, or tobacco-related health factor, from the [place] facility where the Encounter took place. Date/Time Current Smoking Status Comment Facil ity Mar 05, 2023 01:21 PM VA-TOBACCO NEVER USED [place] [facility] Tobacco Use History This section includes a history of the smoking, or tobacco-related health factors, that were collected on or before the date of the Encounter. The data comes from the [place] facility where the Encounter took place. Date/Time Smoking Status/Tobacco Use Comment F acility Dec 24, 2021 11:30 AM VA-TOBACCO NEVER USED [place] [facility] [place] [facility] Dec 28, 2020 03:30 PM VA-TOBACCO NEVER USED [place] [facility] [place] [facility] Dec 21, 2019 09:00 AM VA-TOBACCO FORMER USER [place] [facility] [place] [facility] Dec 21, 2019 09:00 AM VA-TOBACCO QUIT 15 YRS OR MORE [place] [facility] [place] [facility] May 18, 2018 08:51 AM VA-TOBACCO FORMER USER [place] [facility] [place] [facility] May 18, 2018 08:51 AM VA-TOBACCO QUIT 15 YRS OR MORE [place] [facility] [place] [facility] Nov 02, 2017 08:19 AM QUIT TOBACCO USE > 7 YEARS AGO [place] [facility] [place] [facility] Nov 04, 2016 09:14 AM QUIT TOBACCO USE > 7 YEARS AGO [place] [facility] [place] [facility] Sep 21, 2015 09:08 AM QUIT TOBACCO USE > 7 YEARS AGO . [place] [facility] [place] [facility] Jan 17, 2013 02:27 PM QUIT TOBACCO USE > 7 YEARS AGO . [place] [facility] [place] [facility] Encounter Notes: All associated encounter notes This section contains the clinical notes associated to the Encounter. Date/Time Encounter Note(s) Provider Source May 29, 2023 01:59 PM OPTOMETRY CONSULT: [facility] TITLE: CONSULT REPORT/OPTOMETRY VISUAL FIELD STANDARD TITLE: OPTOMETRY CONSULT DATE OF NOTE: MAY 29, 2023@13:59 ENTRY DATE: MAY 29, 2023@13:59:48 AUTHOR: ANDERS MOON COSIGNER: HA,JACOB J URGENCY: STATUS: COMPLETED CONSULT REPORT/OPTOMETRY VISUAL FIELD Has ADDENDA Visual field Report: HVF 24-2 reviewed for mild primary open angle glaucoma OU Interpretation: OD: reliability with 1 fixation loss, 7% false positives. GHT WNL. Clear field, no glaucomatous defects. OS: reliability with 0 fixation losses, 5% false positives. GHT WNL. Clear field, no glaucomatous defects. A/P: Mild Primary Open-Angle Glaucoma OU - Normotensive IOP today, well controlled with latanoprost - Optic nerve appearance stable and healthy to previous - No glaucomatous damage or progression on VF and OCT today - No family history of glaucoma - Patient educated on today's findings and nature of glaucoma. Stressed importance of adherence to treatment and follow up schedule as glaucoma is a chronic, progressive, potentially blinding condition - Continue latanoprost QHS OU - RTC in 6 months for glaucoma follow up and repeat imaging /carlos manuel/ ANDERS MOON OPTOMETRY STUDENT Signed: 05/29/2023 14:52 /carlos manuel/ JACOB HA OD DISTRIBUTOR ADVERTISING MATERIAL Cosigned: 05/29/2023 14:53 05/29/2023 ADDENDUM STATUS: COMPLETED The optometry international trade compliance manager participated in this exam. I saw this [place] in conjunction with the optometry student. The visual images were captured by the optometry health semiconductor technician. Results of testing assessed by the student and reviewed by myself. 's history, complaints and student's findings and plan reviewed. I reviewed and agree with the stated findings, assessment and plan. I have added/edited the documentation to reflect my exam findings and changes to the assessment and plan. /carlos manuel/ JACOB HA OD DISTRIBUTOR ADVERTISING MATERIAL Signed: 05/29/2023 14:53 ANDERS MOON [place] [facility]
[2024-03-07 09:33] VITALS: BP 138/58; PULSE 74; O2SAT 98; BMI 31.1
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
== END 2024-03-07 10:20 | disposition home or self-care (01) ==
PROVIDERS: PCP Physician Assistant; Visit Provider Internal Medicine
DX: K86.2 Cyst of pancreas (principal); Z86.0100 Personal history of colon polyps, unspecified
CPT/HCPCS: 99204; G2211

== ENCOUNTER → 2024-03-07 09:28 | Outpatient (BNVA) | payer OTHER, MEDICARE, SELFPAY | PROVIDERS: PCP Physician Assistant; Visit Provider Internal Medicine | DX: K86.2 Cyst of pancreas (principal); Z86.0100 Personal history of colon polyps, unspecified | CPT/HCPCS: 99202 ==

== ENCOUNTER 2024-07-04 08:53 | Outpatient (REF) | payer OTHER, SELFPAY ==
--- NOTE | ~2024-07-04 | MR_ITS ---
EXAMINATION: MRI Abdomen without and with contrast HISTORY: pancreatic cyst COMPARISON: Comparison is made with the prior examination dated 01/13/2024. Correlation is also made with a CT of the abdomen with contrast dated 10/09/2023. TECHNIQUE: Axial in and out of phase T1-weighted gradient echo, axial diffusion weighted, and axial and coronal HASTE T2 with fat saturation images were obtained through the abdomen. Subsequently, fat suppressed axial and coronal T1-weighted images were obtained after the intravenous administration of 9 mL Gadavist. FINDINGS: The examination is limited by respiratory motion artifact. There is no significant loss of signal intensity within the liver on opposed phase imaging to suggest steatosis. Again seen is atrophy of the left lobe of the liver with associated mild intrahepatic biliary ductal dilatation. No enhancing liver mass is identified, although evaluation is limited by patient motion. The hepatic and portal veins are patent. The gallbladder is unremarkable. Again seen is a cystic lesion in the tail of the pancreas which measures 1.8 x 1.2 x 1.3 cm. This is likely unchanged in size. The pancreatic duct is not dilated. There is no definite associated contrast enhancement. The spleen is unremarkable. The adrenals and right kidney are unremarkable. There is a 3.3 cm cyst at the upper pole of the left kidney. No retroperitoneal lymphadenopathy or ascites is identified in the upper abdomen. The visualized bones demonstrate normal marrow signal intensity. MR/MR abdomen wo/w con IMPRESSION: 1. Limited examination due to patient motion. 2. 1.8 x 1.2 x 1.3 cm cyst in the pancreatic tail without significant change. Continued follow-up is recommended. 3. Atrophy of the left hepatic lobe with associated mild intrahepatic biliary dilatation without change. Electronically signed by: David Stern MD 07/04/2024 11:28 AM EDT
[2024-07-04] MEDS: gadobutroL 10 ML VIAL IVPUSH (09:42)
--- OUTSIDE RECORDS SUMMARY | 2024-07-04 09:57 | XMS_ITS | Continuity of Care Document ---
Author Name [facility] Organization [facility] Care Team Providers Care Position Clerk Name Role Phone [facility] Unavailable Unavailable Problems Combined list of problems [...] [facility] [place] [facility] LOW BACK PAIN, LUMBAGO [facility] Obesity Active [facility] Diagnosis: ICD-10-CM I11.9 Hypertensive heart disease without heart failure Active Diagnosis [facility] Diagnosis: ICD-10-CM I10 Essential (primary) hypertension Active Diagnosis [facility] Diagnosis: ICD-10-CM Z77.29 Contact with and exposure to other hazardous substances Active Diagnosis [facility] Diagnosis: ICD-10-CM H40.1131 Primary open-angle glaucoma, bilateral, mild stage Active Diagnosis [facility] Medications Combined list of outpatient medications from Department of Defense and Veterans Affairs facilities.Medications provided include 1) outpatient medications from the last 15 months, and 2) patient-reported medications. Medication Details Route Status Patient Instructions Prescription Expires Prescription Number Last Dispense Date Ordering Provider Order Date Order Qty Source ALLOPURINOL 300MG TAB TAKE ONE TABLET BY MOUTH DAILY FOR GOUT ORAL ACTIVE 10/20/2024 [id number] [facility] RICE 2023 90 [facility] ALLOPURINOL 300MG TAB TAKE ONE TABLET BY MOUTH DAILY FOR GOUT ORAL DISCONT INUED 10/28/2023 [id number] [facility] RICE 2022 90 [facility] AMLODIPINE BESYLATE 10MG TAB TAKE ONE TABLET BY MOUTH ONCE DAILY FOR BLOOD PRESSURE /HEART, DO NOT TAKE WITH GRAPEFRU IT JUICE ORAL DISCONT INUED (EDIT) 06/05/2024 [id number] [facility] RICE 2023 90 [facility] AMLODIPINE BESYLATE 5MG TAB TAKE ONE TABLET BY MOUTH ONCE DAILY FOR BLOOD PRESSURE /HEART, DO NOT TAKE WITH GRAPEFRU IT JUICE ORAL ACTIVE 10/20/2024 [id number] [facility] RICE 2023 90 [facility] ATORVASTATI N CA 20MG TAB TAKE ONE-HALF TABLET BY MOUTH DAILY FOR CHOLESTE ROL ORAL ACTIVE 10/20/2024 [id number] [facility] RICE 2023 45 [facility] ATORVASTATI N CA 20MG TAB TAKE ONE-HALF TABLET BY MOUTH DAILY FOR CHOLESTE ROL ORAL DISCONT INUED 10/28/2023 [id number] [facility] R[facility] 2022 45 [facility] HYDROCHLORO THIAZIDE 25MG TAB TAKE ONE TABLET BY MOUTH EVERY MORNING TO PREVENT FLUID/CO NTROL BLOOD PRESSURE ORAL ACTIVE 10/20/2024 [id number] [facility] RICE 2023 90 [facility] HYDROCHLORO THIAZIDE 25MG TAB TAKE ONE TABLET BY MOUTH EVERY MORNING TO PREVENT FLUID/CO NTROL BLOOD PRESSURE ORAL DISCONT INUED 10/28/2023 [id number] [facility] R[facility] 2022 90 [facility] LATANOPROST 0.005% SOLN,OPH INSTILL 1 DROP INTO EACH EYE ONCE DAILY TO REDUCE PRESSURE IN THE EYE OPHTHA LMIC ACTIVE 09/20/2024 [id number] 5 HA,LAC EY J 2024 7.5 [facility] LATANOPROST 0.005% SOLN,OPH INSTILL 1 DROP INTO EACH EYE ONCE DAILY TO REDUCE PRESSURE IN THE EYE OPHTHA LMIC DISCONT INUED 07/09/2024 [id number] HA,LAC EY J 2023 7.5 [facility] LISINOPRIL 40MG TAB TAKE ONE TABLET BY MOUTH DAILY TO CONTROL BLOOD PRESSURE ORAL ACTIVE 10/20/2024 [id number] [facility] RICE 2023 90 [facility] LISINOPRIL 40MG TAB TAKE ONE TABLET BY MOUTH DAILY TO CONTROL BLOOD PRESSURE ORAL DISCONT INUED 10/28/2023 [id number] [facility] RICE 2022 90 [facility] MULTIVITAMI NS CAP/TAB TAKE ONE TABLET BY MOUTH ONCE DAILY ORAL ACTIVE [facility] RICE 2024 [facility] Allergies, Adverse Reactions, Alerts Combined list of allergies from Department of Defense and Veterans Affairs facilities. It does not include entries that were removed or entered in error. Substance Category Reaction Severity Reaction type Status Date Reported Comments Source ATENOLOL Propensity to adverse reactions to drug (finding) [facility] Immunizations Combined list of available immunizations from the Department of [facility] and Veterans Affairs facilities. Immunization Series Date Given Administered By Site Reaction Lot Number CVX Code Drug Office Agent Status Comments Source HEP A-HEP B 1 2024 [facility] LEFT DELTO ID [id number] 104 complet ed [facility] RSV, RECOMBINANT, PROTEIN SUBUNIT RSVPREF3, ADJUVANT RECONSTITUTED , 0.5 ML, PF 1 2024 [facility] HURT[facility]O LEFT DELTO ID [id number] 303 complet ed [facility] INFLUENZA, HIGH-DOSE, QUADRIVALENT 2023 [facility]URT[facility] LEFT DELTO ID [id number] 197 complet ed Booster for Series, [facility] INFLUENZA, INJECTABLE, QUADRIVALENT, PRESERVATIVE FREE 2021 150 complet ed [facility] COVID-19 (MODERNA), MRNA, LNP-S, PF, 100 MCG OR 50 MCG DOSE 3 2021 207 complet ed MOD; [id number]; 2 [facility] INFLUENZA VACCINE, QUADRIVALENT, ADJUVANTED 2020 205 complet ed [facility] COVID-19 (MODERNA), MRNA, LNP-S, PF, 100 MCG/0.5 ML DOSE 2 2020 207 complet ed [facility] COVID-19 (MODERNA), MRNA, LNP-S, PF, 100 MCG/0.5 ML DOSE 1 2020 207 complet ed [facility] INFLUENZA, INJECTABLE, QUADRIVALENT, PRESERVATIVE FREE 2019 150 [...] [address] [facility] [place] [...] URATE [MASS/VOLU ME] IN SERUM OR PLASMA 5.9 mg/dL 3.5 - 7.2 04/19 Specimen Type: SERUM No comment entered. Ordering Provider: Alfonso RICE Report Released Date/Time: Apr 05, 2024 06:00 PM Reporting Lab: [facility] [place] [facility] [address] [facility] [address] Performing Lab: [facility] [place] [facility] [address] [facility] [address] [facility] [place] [facility] LIVER FUNCTION PROTEIN [MASS/VOLU ME] IN SERUM OR PLASMA 7.1 g/dL 6.0 - 8.3 04/19 Specimen Type: SERUM No comment entered. Ordering Provider: Alfonso RICE Report Released Date/Time: Apr 05, 2024 06:00 PM Reporting Lab: [facility] [place] [facility] [address] [facility] [address] Performing Lab: [facility] [place] [facility] [address] [facility] [address] [facility] [place] [facility] LIVER FUNCTION ALBUMIN [MASS/VOLU ME] IN SERUM OR PLASMA 3.9 g/dL 3.5 - 5.0 04/19 Specimen Type: SERUM No comment entered. Ordering Provider: Alfonso RICE Report Released Date/Time: Apr 05, 2024 06:00 PM Reporting Lab: [facility] [place] [facility] [address] [facility] [address] Performing Lab: [facility] [place] [facility] [address] [facility] [address] [facility] [facility] LIVER FUNCTION ALKALINE PHOSPHATAS E [ENZYMATIC ACTIVITY/V OLUME] IN SERUM OR PLASMA 48 U/L 40 - 150 04/19 Specimen Type: SERUM No comment entered. Ordering Provider: Alfonso RICE Report Released Date/Time: Apr 05, 2024 06:00 PM Reporting Lab: [facility] [place] [facility] [address] [facility] [address] Performing Lab: [facility] [place] [facility] [address] [facility] [address] [facility] [facility] LIVER FUNCTION ASPARTATE AMINOTRANS FERASE [ENZYMATIC ACTIVITY/V OLUME] IN SERUM OR PLASMA 22 U/L 5 - 34 04/19 Specimen Type: SERUM No comment entered. Ordering Provider: Alfonso RICE Report Released Date/Time: Apr 05, 2024 06:00 PM Reporting Lab: [facility] [place] [facility] [address] [facility] [address] Performing Lab: [facility] [place] [facility] [address] [facility] [address] [place] [facility] [place] [facility] LIVER FUNCTION ALANINE AMINOTRANS FERASE [ENZYMATIC ACTIVITY/V OLUME] IN SERUM OR PLASMA 16 U/L 04/19 Specimen Type: SERUM No comment entered. Ordering Provider: Alfonso RICE Report Released Date/Time: Apr 05, 2024 06:00 PM Reporting Lab: [facility] [place] [facility] [address] [facility] [address] Performing Lab: [facility] [place] [address] [address] [facility] [facility] LIVER FUNCTION BILIRUBIN. TOTAL [MASS/VOLU ME] IN SERUM OR PLASMA 0.7 mg/dL 0.2 - 1.2 04/19 Specimen Type: SERUM No comment entered. Ordering Provider: Alfonso RICE Report Released Date/Time: Apr 05, 2024 06:00 PM Reporting Lab: [facility] [place] [facility] [address] [facility] [address] Performing Lab: [facility] [place] [facility] [address] [facility] [address] [facility] [place] [facility] LIPID PANEL FASTING CHOLESTERO L [MASS/VOLU ME] IN SERUM OR PLASMA 190 mg/dL 04/19 Specimen Type: SERUM No comment entered. Ordering Provider: Alfonso RICE Report Released Date/Time: Apr 05, 2024 06:00 PM Reporting Lab: [facility] [place] [facility] [address] [facility] [address] Performing Lab: [facility] [place] [address] [address] [facility] [place] [facility] LIPID PANEL FASTING TRIGLYCERI DE [MASS/VOLU ME] IN SERUM OR PLASMA 88 mg/dL 0 - 150 04/19 Specimen Type: SERUM No comment entered. Ordering Provider: Alfonso RICE Report Released Date/Time: Apr 05, 2024 06:00 PM Reporting Lab: [facility] [place] [facility] [address] [facility] [address] Performing Lab: [facility] [place] [facility] [address] [facility] [address] [facility] [place] [facility] LIPID PANEL FASTING CHOLESTERO L IN LDL [MASS/VOLU ME] IN SERUM OR PLASMA BY CALCULATIO N 113 mg/dL 0 - 129 04/19 Specimen Type: SERUM No comment entered. Ordering Provider: Alfonso RICE Report Released Date/Time: Apr 05, 2024 06:00 PM Reporting Lab: [facility] [place] [facility] [address] [facility] [address] Performing Lab: [facility] [place] [facility] [address] [facility] [address] [facility] [place] [facility] LIPID PANEL FASTING CHOLESTERO L.TOTAL/CH OLESTEROL IN HDL [MASS RATIO] IN SERUM OR PLASMA 3.2 04/19 Specimen Type: SERUM No comment entered. Ordering Provider: Alfonso RICE Report Released Date/Time: Apr 05, 2024 06:00 PM Reporting Lab: [facility] [address] Performing Lab: [facility] TRN [facility] [address] [facility] [address] [facility] LIPID PANEL FASTING CHOLESTERO L IN HDL [MASS/VOLU ME] IN SERUM OR PLASMA 59 mg/dL 40 - 60 04/19 Specimen Type: SERUM No comment entered. Ordering Provider: Alfonso RICE Report Released Date/Time: Apr 05, 2024 06:00 PM Reporting Lab: [facility]N [address] [address] Performing Lab: [facility]N [facility]USE[address] [address] [facility] BASIC METABOLI C PANEL (fasting ) UREA NITROGEN [MASS/VOLU ME] IN SERUM OR PLASMA 31 mg/dL 7 - 25 04/19 H Specimen Type: SERUM No comment entered. Ordering Provider: Alfonso RICE Report Released Date/Time: Apr 05, 2024 06:00 PM Reporting Lab: [facility] [address] Performing Lab: [facility] [address] [facility]ITALN [facility] BASIC METABOLI C PANEL (fasting ) GLUCOSE [MASS/VOLU ME] IN SERUM OR PLASMA 100 mg/dL 65 - 100 04/19 Specimen Type: SERUM No comment entered. Ordering Provider: Alfonso RICE Report Released Date/Time: Apr 05, 2024 06:00 PM Reporting Lab: [facility]RS[facility] CENTERTRN [facility]USE[address] [address] Performing Lab: [place] [facility] [place] [facility] [address] [facility] [address] [place] [facility] BASIC METABOLI C PANEL (fasting ) SODIUM [MOLES/VOL UME] IN SERUM OR PLASMA 139 mmol/L 135 - 145 04/19 Specimen Type: SERUM No comment entered. Ordering Provider: Alfonso RICE Report Released Date/Time: Apr 05, 2024 06:00 PM Reporting Lab: [place] [facility] [place] [facility] [address] [facility] [address] Performing Lab: [place] [facility]ITAL[facility] [address] [facility] [address] [facility] BASIC METABOLI C PANEL (fasting ) POTASSIUM [MOLES/VOL UME] IN SERUM OR PLASMA 4.2 mmol/L 3.5 - 5.0 04/19 Specimen Type: SERUM No comment entered. Ordering Provider: Alfonso RICE Report Released Date/Time: Apr 05, 2024 06:00 PM Reporting Lab: [facility] [place] [facility] [address] [facility] [address] Performing Lab: [place] [facility] [place] [facility] [address] [facility] [address] [facility] BASIC METABOLI C PANEL (fasting ) CHLORIDE [MOLES/VOL UME] IN SERUM OR PLASMA 105 mmol/L 100 - 110 04/19 Specimen Type: SERUM No comment entered. Ordering Provider: Alfonso RICE Report Released Date/Time: Apr 05, 2024 06:00 PM Reporting Lab: [place] [facility] [place] [facility] [address] [facility] [address] Performing Lab: [place] [facility] [place] [facility] [address] [facility] [address] [facility] BASIC METABOLI C PANEL (fasting ) CARBON DIOXIDE, TOTAL [MOLES/VOL UME] IN SERUM OR PLASMA 23 meq/L 20 - 30 04/19 Specimen Type: SERUM No comment entered. Ordering Provider: Alfonso RICE Report Released Date/Time: Apr 05, 2024 06:00 PM Reporting Lab: [facility] [place] [facility] [address] [facility] [address] Performing Lab: [facility] [place] [facility] [address] [facility] [address] [facility] BASIC METABOLI C PANEL (fasting ) CREATININE [MASS/VOLU ME] IN SERUM OR PLASMA 1.04 mg/dL 0.50 - 1.40 04/19 Specimen Type: SERUM No comment entered. Ordering Provider: Alfonso RICE Report Released Date/Time: Apr 05, 2024 06:00 PM Reporting Lab: [facility] [place] [address] [address] Performing Lab: [place] [facility] [place] [address] [address] [place] [facility] BASIC METABOLI C PANEL (fasting ) GLOMERULAR FILTRATION RATE/1.73 SQ M.PREDICTE D [VOLUME RATE/AREA] IN SERUM, PLASMA OR BLOOD BY CREATININE -BASED FORMULA (CKD-EPI 2020) 74 mL/min 60 04/19 Specimen Type: SERUM No comment entered. Ordering Provider: Alfonso RICE Report Released Date/Time: Apr 05, 2024 06:00 PM Reporting Lab: [facility] [place] [address] [address] Performing Lab: [facility] [place] [address] [address] [facility] [place] [facility] BASIC METABOLI C PANEL (fasting ) UREA NITROGEN [MASS/VOLU ME] IN SERUM OR PLASMA 28 mg/dL 7 - 25 06/04 H Specimen Type: SERUM No comment entered. Ordering Provider: Alfonso RICE Report Released Date/Time: May 27, 2023 11:14 AM Reporting Lab: [facility] [place] [address] [address] Performing Lab: [facility] [place] [facility] [address] [facility] [address] [facility] BASIC METABOLI C PANEL (fasting ) GLUCOSE [MASS/VOLU ME] IN SERUM OR PLASMA 102 mg/dL 65 - 100 06/04 H Specimen Type: SERUM No comment entered. Ordering Provider: Alfonso RICE Report Released Date/Time: May 27, 2023 11:14 AM Reporting Lab: [facility] [address] Performing Lab: [facility] [address] [facility]ITALN [facility] BASIC METABOLI C PANEL (fasting ) SODIUM [MOLES/VOL UME] IN SERUM OR PLASMA 140 mmol/L 135 - 145 06/04 Specimen Type: SERUM No comment entered. Ordering Provider: Alfonso RICE Report Released Date/Time: May 27, 2023 11:14 AM Reporting Lab: [facility] [address] Performing Lab: [facility]ITAL[facility] [address] [facility] BASIC METABOLI C PANEL (fasting ) POTASSIUM [MOLES/VOL UME] IN SERUM OR PLASMA 3.9 mmol/L 3.5 - 5.0 06/04 Specimen Type: SERUM No comment entered. Ordering Provider: Alfonso RICE Report Released Date/Time: May 27, 2023 11:14 AM Reporting Lab: [facility] [place] [address] [address] Performing Lab: [facility] [address] [facility]ITALN [facility] BASIC METABOLI C PANEL (fasting ) CHLORIDE [MOLES/VOL UME] IN SERUM OR PLASMA 103 mmol/L 100 - 110 06/04 Specimen Type: SERUM No comment entered. Ordering Provider: Alfonso RICE Report Released Date/Time: May 27, 2023 11:14 AM Reporting Lab: [facility] [place] [facility] [address] [facility] [address] Performing Lab: [facility] [place] [facility] [address] [facility] [address] [place] [facility] [facility] BASIC METABOLI C PANEL (fasting ) CARBON DIOXIDE, TOTAL [MOLES/VOL UME] IN SERUM OR PLASMA 24 meq/L 20 - 30 06/04 Specimen Type: SERUM No comment entered. Ordering Provider: Alfonso RCIE Report Released Date/Time: May 27, 2023 11:14 AM Reporting Lab: [place] [facility] [place] [facility] [address] [facility] [address] Performing Lab: [place] [facility] [address] [address] [facility] BASIC METABOLI C PANEL (fasting ) CREATININE [MASS/VOLU ME] IN SERUM OR PLASMA 1.08 mg/dL 0.50 - 1.40 06/04 Specimen Type: SERUM No comment entered. Ordering Provider: Alfonso RICE Report Released Date/Time: May 27, 2023 11:14 AM Reporting Lab: [facility] [place] [address] [address] Performing Lab: [place] [facility] [address] [address] [facility] BASIC METABOLI C PANEL (fasting ) GLOMERULAR FILTRATION RATE/1.73 SQ M.PREDICTE D [VOLUME RATE/AREA] IN SERUM, PLASMA OR BLOOD BY CREATININE -BASED FORMULA (CKD-EPI 2020) 72 mL/min 60 06/04 Specimen Type: SERUM No comment entered. Ordering Provider: Alfonso RICE Report Released Date/Time: May 27, 2023 11:14 AM Reporting Lab: [facility] [place] [address] [address] Performing Lab: [place] [facility] [address] [address] [facility] URIC ACID URATE [MASS/VOLU ME] IN SERUM OR PLASMA 5.2 mg/dL 3.5 - 7.2 06/04 Specimen Type: SERUM No comment entered. Ordering Provider: Alfonso RICE Report Released Date/Time: May 27, 2023 11:14 AM Reporting Lab: [facility] [place] [facility] [address] [facility] [address] Performing Lab: [facility] [place] [facility] [address] [facility] [address] [facility] [place] [facility] LIVER FUNCTION PROTEIN [MASS/VOLU ME] IN SERUM OR PLASMA 6.9 g/dL 6.0 - 8.3 06/04 Specimen Type: SERUM No comment entered. Ordering Provider: Alfonso RICE Report Released Date/Time: May 27, 2023 11:14 AM Reporting Lab: [facility] [place] [facility] [address] [facility] [address] Performing Lab: [facility] [place] [facility] [address] [facility] [address] [facility] [place] [facility] LIVER FUNCTION ALBUMIN [MASS/VOLU ME] IN SERUM OR PLASMA 3.7 g/dL 3.5 - 5.0 06/04 Specimen Type: SERUM No comment entered. Ordering Provider: Alfonso RICE Report Released Date/Time: May 27, 2023 11:14 AM Reporting Lab: [facility] [place] [facility] [address] [facility] [address] Performing Lab: [facility] [place] [facility] [address] [facility] [address] [facility] [place] [facility] LIVER FUNCTION ALKALINE PHOSPHATAS E [ENZYMATIC ACTIVITY/V OLUME] IN SERUM OR PLASMA 45 U/L 40 - 150 06/04 Specimen Type: SERUM No comment entered. Ordering Provider: Alfonso RICE Report Released Date/Time: May 27, 2023 11:14 AM Reporting Lab: [facility] [place] [facility] [address] [facility] [address] Performing Lab: [facility] [place] [facility] [address] [facility] [address] [facility] [place] [facility] LIVER FUNCTION ASPARTATE AMINOTRANS FERASE [ENZYMATIC ACTIVITY/V OLUME] IN SERUM OR PLASMA 24 U/L 5 - 34 06/04 Specimen Type: SERUM No comment entered. Ordering Provider: Alfonso RICE Report Released Date/Time: May 27, 2023 11:14 AM Reporting Lab: [facility] [place] [facility] [address] [facility] [address] Performing Lab: [facility] [place] [facility] [address] [facility] [address] [place] [facility] [facility] LIVER FUNCTION ALANINE AMINOTRANS FERASE [ENZYMATIC ACTIVITY/V OLUME] IN SERUM OR PLASMA 20 U/L 06/04 Specimen Type: SERUM No comment entered. Ordering Provider: Alfonso RICE Report Released Date/Time: May 27, 2023 11:14 AM Reporting Lab: [facility] [place] [facility] [address] [facility] [address] Performing Lab: [facility] [facility] [address] [facility] [address] [place] [facility] LIVER FUNCTION BILIRUBIN. TOTAL [MASS/VOLU ME] IN SERUM OR PLASMA 0.5 mg/dL 0.2 - 1.2 06/04 Specimen Type: SERUM No comment entered. Ordering Provider: Alfonso RICE Report Released Date/Time: May 27, 2023 11:14 AM Reporting Lab: [facility] [place] [facility] [address] [facility] [address] Performing Lab: [facility] [facility] [address] [facility] [address] [place] [facility] LIPID PANEL FASTING CHOLESTERO L [MASS/VOLU ME] IN SERUM OR PLASMA 180 mg/dL 06/04 Specimen Type: SERUM No comment entered. Ordering Provider: Alfonso RICE Report Released Date/Time: May 27, 2023 11:14 AM Reporting Lab: [facility] [place] [facility] [address] [facility] [address] Performing Lab: [facility] [facility] [address] [facility] [address] [place] [facility] [place] [facility] LIPID PANEL FASTING TRIGLYCERI DE [MASS/VOLU ME] IN SERUM OR PLASMA 79 mg/dL 0 - 150 06/04 Specimen Type: SERUM No comment entered. Ordering Provider: Alfonso RICE Report Released Date/Time: May 27, 2023 11:14 AM Reporting Lab: [facility] [place] [facility] [address] [facility] [address] Performing Lab: [facility] [place] [facility] [address] [facility] [address] [facility] [place] [facility] LIPID PANEL FASTING CHOLESTERO L IN LDL [MASS/VOLU ME] IN SERUM OR PLASMA BY CALCULAVALERIEO N 105 mg/dL 0 - 129 06/04 Specimen Type: SERUM No comment entered. Ordering Provider: Alfonso RICE Report Released Date/Time: May 27, 2023 11:14 AM Reporting Lab: [facility] [place] [facility] [address] [facility] [address] Performing Lab: [facility] [place] [facility] [address] [facility] [address] [facility] [place] [facility] LIPID PANEL FASTING CHOLESTERO L.TOTAL/CH OLESTEROL IN HDL [MASS RATIO] IN SERUM OR PLASMA 3.1 06/04 Specimen Type: SERUM No comment entered. Ordering Provider: Alfonso RICE Report Released Date/Time: May 27, 2023 11:14 AM Reporting Lab: [facility] [place] [facility] [address] [facility] [address] Performing Lab: [facility] [place] [facility] [address] [facility] [address] [facility] [place] [facility] LIPID PANEL FASTING CHOLESTERO L IN HDL [MASS/VOLU ME] IN SERUM OR PLASMA 59 mg/dL 40 - 60 06/04 Specimen Type: SERUM No comment entered. Ordering Provider: Alfonso RICE Report Released Date/Time: May 27, 2023 11:14 AM Reporting Lab: [address] [address] Performing Lab: [address] [address] [facility] HCV RNA PCR PANEL(WH V) HEPATITIS C VIRUS RNA [PRESENCE] IN SERUM OR PLASMA BY GERMAINE WITH PROBE DETECTION Not Detected 10/22 Specimen Type: SERUM Comment: Assay performed using the [employer] m HCV nucleic acid amplificati on test [...] May 06, 2022 01:46 PM Reporting Lab: [address] [address] Performing Lab: [address] [address] [facility] BASIC METABOLI C PANEL (fasting ) UREA NITROGEN [MASS/VOLU ME] IN SERUM OR PLASMA 37 mg/dL 7 - 25 10/22 H Specimen Type: SERUM Comment: BUN Verified by repeat analysis. Ordering Provider: Alfonso RICE Report Released Date/Time: May 06, 2022 01:46 PM Reporting Lab: [address] [address] Performing Lab: [address] [address] [facility] BASIC METABOLI C PANEL (fasting ) GLUCOSE [MASS/VOLU ME] IN SERUM OR PLASMA 104 mg/dL 65 - 100 10/22 H Specimen Type: SERUM Comment: BUN Verified by repeat analysis. Ordering Provider: Alfonso RICE Report Released Date/Time: May 06, 2022 01:46 PM Reporting Lab: [facility] [address] Performing Lab: [facility] [address] [facility] [address] [facility] BASIC METABOLI C PANEL (fasting ) SODIUM [MOLES/VOL UME] IN SERUM OR PLASMA 140 mmol/L 135 - 145 10/22 Specimen Type: SERUM Comment: BUN Verified by repeat analysis. Ordering Provider: Alfonso RICE Report Released Date/Time: May 06, 2022 01:46 PM Reporting Lab: [facility] [address] [facility] [address] Performing Lab: [facility] [address] [facility] [address] [facility] BASIC METABOLI C PANEL (fasting ) POTASSIUM [MOLES/VOL UME] IN SERUM OR PLASMA 4.2 mmol/L 3.5 - 5.0 10/22 Specimen Type: SERUM Comment: BUN Verified by repeat analysis. Ordering Provider: Alfonso RICE Report Released Date/Time: May 06, 2022 01:46 PM Reporting Lab: [facility] [address] [facility] [address] Performing Lab: [facility] [address] [facility] BASIC METABOLI C PANEL (fasting ) CHLORIDE [MOLES/VOL UME] IN SERUM OR PLASMA 103 mmol/L 100 - 110 10/22 Specimen Type: SERUM Comment: BUN Verified by repeat analysis. Ordering Provider: Alfonso RICE Report Released Date/Time: May 06, 2022 01:46 PM Reporting Lab: [facility] [place] [address] [address] Performing Lab: [place] [facility] [place] [address] [address] [place] [facility] [facility] [facility] BASIC METABOLI C PANEL (fasting ) CARBON DIOXIDE, TOTAL [MOLES/VOL UME] IN SERUM OR PLASMA 23 meq/L 20 - 30 10/22 Specimen Type: SERUM Comment: BUN Verified by repeat analysis. Ordering Provider: Alfonso RICE Report Released Date/Time: May 06, 2022 01:46 PM Reporting Lab: [place] [facility] [place] [address] [address] Performing Lab: [place] [facility] [place] [address] [address] [facility] BASIC METABOLI C PANEL (fasting ) CREATININE [MASS/VOLU ME] IN SERUM OR PLASMA 1.17 mg/dL 0.50 - 1.40 10/22 Specimen Type: SERUM Comment: BUN Verified by repeat analysis. Ordering Provider: Alfonso RICE Report Released Date/Time: May 06, 2022 01:46 PM Reporting Lab: [facility] [place] [address] [address] Performing Lab: [place] [facility] [place] [address] [address] [place] [facility] [facility] BASIC METABOLI C PANEL (fasting ) GLOMERULAR FILTRATION RATE/1.73 SQ M.PREDICTE D [VOLUME RATE/AREA] IN SERUM, PLASMA OR BLOOD BY CREATININE -BASED FORMULA (CKD-EPI) 65 mL/min 60 10/22 Specimen Type: SERUM Comment: BUN Verified by repeat analysis. Ordering Provider: Alfonso RICE Report Released Date/Time: May 06, 2022 01:46 PM Reporting Lab: [place] [facility] [place] [address] [address] Performing Lab: [facility] [place] [facility] [address] [facility] [address] [facility] Vital Signs Combined list of inpatient and outpatient Vital Signs from Department of Defense and Veterans Affairs, ranging from 12 months to all on record, depending upon the facility. Vital Sign Value Date Comments Source SYSTOLIC BLOOD PRESSURE 120 04/20/19 25 08:59:07 [facility] DIASTOLIC BLOOD PRESSURE 70 025 08:59:07 [facility] PULSE OXIMETRY 98 04/20/2024 08:59:07 [facility] WEIGHT 215 04/20/2024 08:59:07 [facility] BMI 31 kg/m2 04/20/2024 08:59:07 [facility] PAIN 0 04/20/2024 08:59:07 [facility] TEMPERATURE 98.3 04/20/2024 08:59:07 [facility] PULSE 73 04/20/2024 08:59:07 [facility] RESPIRATION 16 04/20/2024 08:59:07 [facility] [place] [facility] SYSTOLIC BLOOD PRESSURE 120 10/20/19 24 14:08:48 [facility] [place] [facility] DIASTOLIC BLOOD PRESSURE 70 024 14:08:48 [facility] [place] [facility] PULSE OXIMETRY 99 10/20/2023 14:08:48 [facility] WEIGHT 200 10/20/2023 14:08:48 [facility] BMI 29 kg/m2 10/20/2023 14:08:48 [facility] PAIN 5 10/20/2023 14:08:48 [facility] TEMPERATURE 98.9 10/20/2023 14:08:48 [facility] PULSE 83 10/20/2023 14[facility]08:48 [facility] [place] [facility] RESPIRATION 16 10/20/2023 14:08:48 [facility] [place] [facility] Encounters Combined list of: 1) Encounters from Department of Veterans Affairs facilities going backup to the last 18 months, not all [place] inpatient encounters are included; 2) Encounters from the Department of Defense facilities going backup to 280 months. Location Location Details Encounter Type Encounter Number Reason For Visit Attending Provider ADM Date DC Date Status Disposition Source [place] [facility] [facility] [facility] Outpatient Encounter [id number] 03/05 [place] [facility] [place] [place] [facility] [place] [facility] EXTENDED VISUAL FIELD XM [id number] Diagnos is: ICD-10- CM H40.113 1 Primary open-an gle glaucom a, bilater al, mild stage HA,LACE Y J 05/28 [place] [facility] [place] [place] [facility] CMPTR OPHTH IMG OPTIC NERVE [id number] Diagnos is: ICD-10- CM H40.113 1 Primary open-an gle glaucom a, bilater al, mild stage HA,LACE Y J 05/28 [place] [facility] [place] [facility] [place] [place] [facility] COMPRE OPH EXAM EST PT 1/> [id number] Diagnos is: ICD-10- CM H40.113 1 Primary open-an gle glaucom a, bilater al, mild stage HA,LACE Y J 05/28 [place] [facility] [place] [facility] [facility] Outpatient Encounter [id number] 06/04 [place] [facility] [facility] [facility] OFFICE O/P EST LOW 20 MIN [id number] Diagnos is: ICD-10- CM Z77.29 Contact with and exposur e to other hazardo us substan [facility] Griggs 06/04 [facility] En[facility] [id number] 10/08 [facility] [place] En[facility] [id number] 10/12 [facility] OFFICE O/P EST LOW 20 MIN [id number] 1. Diagnos is: ICD-10- CM I10 Essenti al (primar y) hyperte [facility] Villatoro 10/19 [facility] [id number] 1.12/15 [facility] [id number] 1.12/20 [facility] [place] [id number] 1.12/20 [facility] [place] [id number] 1.12/22 [facility] [place] [id number] 1[facility]01/04 [facility] [place] [id number] 01/12 [facility] [place] Encounter [id number] 03/07 [facility] [place] [place] [facility] OFFICE O/P EST LOW 20 MIN [id number] Diagnos is: ICD-10- CM I11.9 Hyperte nsive heart disease without heart failure [facility] RICE 04/20 [facility] En[facility] [id number] 04/25 [facility] [place] En[facility] [id number] 04/26 [facility] [place] Encounter [id number] 06/22 [facility] [place] [place] [facility] Outpatient Encounter [id number] 06/28 [place] [facility] [place] [place] [facility] Social History Combined list of available smoking, tobacco, and other social history from Department of Defense and Veterans Affairs facilities. Social History Type Response Date Comment Sour e Tobacco smoking status [facility] VA-TOBACCO USE FORMER CIGARETTES 04/20/2024 [facility] History of tobacco use VA-TOBACCO USE EVERY DAY OTHER TYPE 04/20/2024 [facility] History of tobacco use VA-TOBACCO NEVER USED 03/05/2023 [facility] [place] History of tobacco use VA-TOBACCO NEVER USED 12/24/2021 [facility] [place] [facility] History of tobacco use VA-TOBACCO NEVER USED 12/28/2020 [facility] [place] History of tobacco use VA-TOBACCO FORMER USER 12/21/2019 [facility] History of tobacco use VA-TOBACCO FORMER USER 05/18/2018 [facility] History of tobacco use QUIT TOBACCO USE > 7 YEARS AGO 11/02/2017 [facility] History of tobacco use QUIT TOBACCO USE > 7 YEARS AGO 11/04/2016 [facility] History of tobacco use QUIT TOBACCO USE > 7 YEARS AGO 09/21/2015 . [facility] History of tobacco use QUIT TOBACCO USE > 7 YEARS AGO 01/17/2013 . [facility] Plan of Care List of future care activities from Department of [facility] Affairs facilities. Additional future care activities may be listed in the Assessment and Plan section. Date/Time Care Activity Care Activity Detail Facili ty 07/04/2024 AMBULATORY - MEDICINE AMBULATORY - MEDICI NE [facility]
--- OUTSIDE RECORDS SUMMARY | 2024-07-04 09:57 | XMS_ITS | Encounter Summary ---
Author Name [facility] [place] Organization [facility] ([place] Address [address] [place] [id number] Care Team Providers Care Unit Reactor Operator Name Role Phone [facility] RICE Primary Care [...] PART B Sep 21, 2015 PART B [id number] [phone] NENO ABBOTT JR PATIENT MEDICARE (WNR) MEDICARE (M) PART A Nov 21, 2013 PART A [id number] NENO ABBOTT JR PATIENT MEDICARE (WNR) MEDICARE (M) PART A Nov 21, 2013 PART A [id number] NENO ABBOTT JR PATIENT MEDICARE (WNR) MEDICARE (M) PART A Nov 21, 2013 PART A [id number] NENO ABBOTT PATIENT MEDICARE (WNR) MEDICARE (M) PART A Nov 21, 2013 PART A [id number] NENO ABBOTT PATIENT MEDICARE (WNR) MEDICARE (M) PART A Nov 21, 2013 PART A [id number] NENO ABBOTT JR PATIENT Selected Encounter This section includes the information [facility] at [facility]. Date/Time Encounter Type Encounter Description Reason Pro vider Source IHE Encounter Template Text not used by [facility]
--- OUTSIDE RECORDS SUMMARY | 2024-07-04 09:57 | XMS_ITS | Encounter Summary ---
Author Name [facility] [place] [facility] [place] Organization [facility] [place] [place] Address [address] [place] [address] Care Team Providers Care Supervisor Esters And Emulsifiers Name Role Phone AMADOR TORRES Primary Care Provider Unavail able Insurance [...] PART B Sep 21, 2015 PART B [id number] NENO ABBOTT JR PATIENT MEDICARE (WNR) MEDICARE (M) PART A Nov 21, 2013 PART A [id number] [phone] NENO ABBOTT JR PATIENT MEDICARE (WNR) MEDICARE (M) PART A Nov 21, 2013 PART A [id number] NENO ABBOTT JR PATIENT MEDICARE (WNR) MEDICARE (M) PART A Nov 21, 2013 PART A [id number] NENO ABBOTT PATIENT MEDICARE (WNR) MEDICARE (M) PART A Nov 21, 2013 PART A [id number] NENO ABBOTT PATIENT MEDICARE (WNR) MEDICARE (M) PART A Nov 21, 2013 PART A [id number] [phone] NENO ABBOTT JR PATIENT Selected Encounter This section includes the information on record at [place] for the Encounter. Date/Time Encounter Type Encounter Description Reason Provider Source Apr 20, 2024 09:00 AM OFFICE O/P EST LOW 20 MIN PRIMARY CARE/MEDICINE ICD-10-CM I11.9 Hypertensive heart disease without heart failure AISHA TORRES IHE Encounter Template Text not used by [place] Assessments - Encounter Diagnoses This section includes the primary and secondary diagnoses documented for the Encounter. Date/Time Primary/Secondary Diagnosis Diagnosis Name Provider Source Apr 20, 2024 09:32 AM PRIMARY Hypertensive heart disease without heart failure AISHA TORRES [facility] Apr 20, 2024 09:32 AM SECONDARY Encounter for immunization CAMILLE HURTADO [facility] Plan of Treatment: Future Appointments (+ 6 months) and Future Tests (+/- 45 days) The Plan of Treatment section includes future care activities for the patient from all [place] [facility]. This section includes future appointments and future orders which are active, pending or scheduled. Future Appointments This section includes appointments that were scheduled to occur 6 months from the date of the Encounter, up to a maximum of 20 appointments. The data comes from all [facility]. Appointment Date/Time Appointment Type Appointme nt Facility Name Apr 26, 2024 08:00 AM AMBULATORY - MEDICINE [facility] Jul 04, 2024 09:00 AM AMBULATORY - [facility] August 03, 2024 03:00 PM AMBULATORY - MEDICINE [facility] [place] [facility] August 03, 2024 03:30 PM AM[facility]ULATORY [facility]ICINE [facility] [place] [facility] Sep 15, 2024 10:30 AM [facility] Active, Pending, and Scheduled Orders This section includes a listing of several types of active, pending, and scheduled orders, including clinic medications orders, diagnostic test orders, procedure orders and consult orders; where the start date of the order is 45 days before the date of the Encounter or 45 days after the date of theEncounter. The data comes from all [facility] treatment facilities. Test Date/Time Test Type Test Details Facility Name Mar 12, 2024 04:43 PM Consult Order COMMUNITY CARE-MRI Cons Business Test Analyst's Choice [facility] Lab Results: +/- 30 days of [...] Type Result - Unit Interpretation Reference Range Specimen Type Comment Apr 19, 2024 08:55 AM [facility] URIC ACID SERUM Specimen Type: SERUM No comment entered. Ordering Provider: ZIA TORRES Report Released Date/Time: Apr 05, 2024 06:00 PM Reporting Lab: [facility] [address] [address] Performing Lab[facility] [address] [address] URIC ACID 5.9 mg/dL 3.5-7.2 Apr 19, 2024 08:55 AM [facility] LIPID PANEL FASTING SERUM Specimen Type: SERU M No comment entered. Ordering Provider: AMADOR TORRES Report Released Date/Time: Apr 05, 2024 06:00 PM Reporting Lab: [facility] [address] [facility] [address] Performing Lab: [facility] [address] [address] CHOLESTEROL 190 mg/dL TRIGLYCERIDE 88 mg/dL 0-150 LDL calculated 113 mg/dL 0-129 CHOL/HDL 3.2 HDL CHOLESTEROL 59 mg/dL 40-60 Apr 19, 2024 08:55 AM [facility] LIVER FUNCTION SERUM Specimen Type: SERUM No comment entered. Ordering Provider: AMADOR TORRES Report Released Date/Time: Apr 05, 2024 06:00 PM Reporting Lab: [facility] [address] [address] Performing Lab: [facility] [address] [facility] [address] PROTEIN,TOTAL 7.1 g/dL 6.0-8.3 ALBUMIN 3.9 g/dL 3.5-5.0 ALKALINE PHOSPHATASE 48 U/L 40-150 AST 22 U/L 5-34 ALT 16 U/L BILIRUBIN, TOTAL 0.7 mg/dL 0.2-1.2 Apr 19, 2024 08:55 AM [facility] BASIC METABOLIC PANEL (fasting) SERUM Specime n Type: SERUM No comment entered. Ordering Provider: AMADOR TORRES Report Released Date/Time: Apr 05, 2024 06:00 PM Reporting Lab: [address] [address] Performing Lab: [address] [address] UREA NITROGEN 31 mg/dL H 7-25 GLUCOSE 100 mg/dL 65-100 SODIUM 139 mmol/L 135-145 POTASSIUM 4.2 mmol/L 3.5-5.0 CHLORIDE 105 mmol/L 100-110 CO2 23 meq/L 20-30 CREATININE, Serum 1.04 mg/dL 0.50-1.40 eGFR(CKD-EPI 2020) 74 mL/min >60 Vital Signs: All taken on the encounter date This section contains inpatient and outpatient Vital Signs collected on the date of the Encounter. Date/Time Temperature Pulse Blood Pressure Respiratory Rate SP02 Pain Height Weight Body Mass Index Source Apr 20, 2024 08:59 AM 98.3 73 120/70 16 98 0 215 31 [facility] Immunizations: All administered on the encounter date This section contains immunizations associated to the Encounter. Immunization Series Date Issued Administered By Site Reaction Lot Number CVX Code Drug Sr. Media Manager Comment(s) Source HEP A-HEP B 1 Apr 20, 2024 CAMILLE HURTADO LEFT DELTO ID [id number] RSV, RECOMBINANT, PROTEIN SUBUNIT RSVPREF3, ADJUVANT RECONSTITUTED , 0.5 ML, PF 1 Apr 20, 2024 CAMILLE HURTADO E LEFT DELTO ID [id number] GLAXDANIEL Flores AT [place], [place] [facility] [place] [facility] Social History: Smoking Status (Most current) and [...] Date/Time Current Smoking Status Comment Nusrat ity Apr 20, 2024 09:00 AM VA-TOBACCO USE FOR TIMI CIGARETTES [facility] Tobacco Use History This section includes a history of the smoking, or tobacco-related health factors, that were collected on or before the date of the Encounter. The data comes from the [place] facility where the Encounter took place. Date/Time Smoking Status/Tobacco Use Comment F acility Apr 20, 2024 09:00 AM VA-TOBACCO USE PATSY RY DAY OTHER TYPE [place] [facility] Apr 20, 2024 09:00 AM VA-TOBACCO USE FOR TIMI CIGARETTES [facility] [place] [facility] Mar 05, 2023 01:21 PM VA-TOBACCO NEVER USED [facility] [place] [facility] Dec 24, 2021 11:30 AM VA-TOBACCO NEVER USED [place] [facility] [place] [facility] Dec 28, 2020 03:30 PM VA-TOBACCO NEVER USED [facility] [place] [facility] Dec 21, 2019 09:00 AM VA-TOBACCO FORMER USER [place] [facility] [place] [facility] Dec 21, 2019 09:00 AM VA-TOBACCO QUIT 15 YRS OR MORE [facility] [place] [facility] May 18, 2018 08:51 AM VA-TOBACCO FORMER USER [facility] [place] [facility] May 18, 2018 08:51 AM VA-TOBACCO QUIT 15 YRS OR MORE [facility] [place] [facility] Nov 02, 2017 08:19 AM QUIT TOBACCO USE > 7 YEARS AGO [facility] [place] [facility] Nov 04, 2016 09:14 AM QUIT TOBACCO USE > 7 YEARS AGO [facility] [place] [facility] Sep 21, 2015 09:08 AM QUIT TOBACCO USE > 7 YEARS AGO . [facility] [place] [facility] Jan 17, 2013 02:27 PM QUIT TOBACCO USE > 7 YEARS AGO . [facility] Encounter Notes: All associated encounter notes This section contains the clinical notes associated to the Encounter. Date/Time Encounter Note(s) Provider Source Apr 20, 2024 09:23 AM PHYSICIAN CUSTOM BOW MAKER NOTE: LOCAL TITLE: PA NOTE STANDARD TITLE: PHYSICIAN CUSTOM BOW MAKER NOTE DATE OF NOTE: APR 20, 2024@09:23 ENTRY DATE: APR 20, 2024@09:23:03 AUTHOR: AMADOR TORRES EXP COSIGNER: URGENCY: STATUS: COMPLETED CC/HPI/A/P: 73 year old MALE here in follow-up for; gout, none. SBO, s/p exlap. In f/u wtih GI, US and MRI pending htn,in good control on meds dyslipidemia, at goal on statin. Hep c, trreated multiple times, before achieving an SVR!!! FH of colon cancer and phx of polyps, pending repeat colonoscopy, he has been reschedule twice! Review of systems: Patient reports no changes [...] TAKE ONE TABLET BY MOUTH DAILY FOR ACTIVE GOUT 2) AMLODIPINE BESYLATE 5MG TAB TAKE ONE TABLET BY MOUTH ONCE ACTIVE DAILY FOR BLOOD PRESSURE/HEART, DO NOT TAKE WITH GRAPEFRUIT JUICE Indication: FOR HIGH BLOOD PRESSURE 3) ATORVASTATIN CALCIUM 20MG TAB TAKE ONE-HALF TABLET BY MOUTH ACTIVE DAILY FOR CHOLESTEROL 4) HYDROCHLOROTHIAZIDE 25MG TAB TAKE ONE TABLET BY MOUTH EVERY ACTIVE MORNING TO PREVENT FLUID/CONTROL BLOOD PRESSURE 5) LATANOPROST 0.005% OPH SOLN INSTILL 1 DROP INTO EACH EYE ACTIVE ONCE DAILY TO REDUCE PRESSURE IN THE EYE 6) LISINOPRIL 40MG TAB TAKE ONE TABLET BY MOUTH DAILY TO ACTIVE CONTROL BLOOD PRESSURE 98.3 F [36.8 C] (04/20/2024 08:59) 73 (04/20/2024 08:59) 16 (04/20/2024 08:59) 120/70 (04/20/2024 08:59) 0 (04/20/2024 08:59) 69.5 in [176.5 cm] (04/07/2019 11:21) 215 lb [97.52 kg] (04/20/2024 08:59) BMI: 31.4 Neuro: Alert and oriented times three, grossly nonfocal, nasolabial folds intact. Recent labs reviewed with patient today:yes Falls & Incontinence Screen: Falls Screen: During the past 12 months, did the patient report any falls? 4. No falls within the past year. Incontinence Screen: During the past 12 months, has the patient has any characteristics of incontinence (ability, voiding, leakage, etc.)? No incontinence. /carlos manuel/ Amador Torres PA-C STAFF PHYSICIAN CUSTOM BOW MAKER Signed: 04/20/2024 09:32 AMADOR TORRES [place] [facility] [place] [place] [facility] Apr 20, 2024 09:02 AM NURSING NOTE: LOCAL TITLE: NURSING NOTE STANDARD TITLE: NURSING NOTE DATE OF NOTE: APR 20, 2024@09:02 ENTRY DATE: APR 20, 2024@09:02:38 AUTHOR: ROBY HURTADO EXP COSIGNER: URGENCY: STATUS: COMPLETED NURSING NOTE Has ADDENDA Suicide Screen: C-SSRS Screening Elsie Suicide Severity Rating Scale (C-SSRS) screener 1. Over the past month, have you wished you were or wished you could go to sleep and not wake up? No 2. Over the past month, have you had any actual thoughts of killing yourself? No 3. Over the past month, have you been thinking about how you might do this? Response not required due to responses to other questions. 4. Over the past month, have you had these thoughts and had some intention of acting on them? Response not required due to responses to other questions. 5. Over the past month, have you started to work out or worked out the details of how to kill yourself? Response not required due to responses to other questions. 6. If yes, at any time in the past month did you intend to carry out this plan? Response not required due to responses to other questions. 7. In your lifetime, have you ever done anything, started to do anything, or prepared to do anything to end your life (for example, collected pills, obtained a gun, gave away valuables, went to the roof but didn't jump)? No 8. If YES, was this within the past 3 months? Response not required due to responses to other questions. Depression Screening: Perform PHQ-2 A PHQ-2 screen was performed. The score was 0 which is a negative screen for depression. Over the past two weeks, how often have you been bothered by the following problems? 1. Little interest or pleasure in doing things Not at all 2. Feeling down, depressed, or hopeless Not at all Tobacco Use Screening: The patient is a former cigarette smoker. Quit smoking GREATER THAN OR EQUAL to 15 years. The patient uses other type(s) of tobacco every day. Other Tobacco Type(s) used: Other tobacco product: Product Type: marijuana Alcohol Use Screen (AUDIT-C): Alcohol Screen: SCREEN FOR ALCOHOL (AUDIT-C) An alcohol screening test (AUDIT-C) was negative (score=4). 1. How often did you have a drink containing alcohol in the past year? Consider a drink to be a 12 ounce can or bottle of regular beer, 8 ounces of malt liquor, a 5 ounce glass of table wine, or a 1.5 ounce shot of liquor (like scotch, gin, or vodka). Four or more times a week 2. How many drinks containing alcohol did you have on a typical day when you were drinking in the past year? One or two drinks 3. How often did you have six or more drinks on one occasion in the past year? Jolly /carlos manuel/ ROBY HURTADO LPN Signed: 04/20/2024 09:07 04/20/2024 ADDENDUM STATUS: COMPLETED RSV Immunization: Respiratory Syncytial Virus (RSV) Vaccine: RSV vaccine administered today. Administered: RSV, RECOMBINANT, PROTEIN SUBUNIT RSVPREF3, ADJUVANT RECONSTITUTED, 0.5 ML, PF Date Administered: Apr 20, 2024 09:00 Series: Series 1 Sr. Media Manager: [employer] Lot: [id number] Exp Date: Jan 14, 2025 ND: [id number] Admin Route/Site: INTRAMUSCULAR/LEFT DELTOID Dosage: 0.5mL Vaccine Information Statement(s): RSV (RESPIRATORY SYNCYTIAL VIRUS) VACCINE VIS Jan 07, 2024 (PUERTO RICAN) Order By: Policy Administered By: Roby Hurtado Vaccine Information Sheet (VIS) was given to the patient/caregiver, education regarding adverse reactions was discussed, as well as barriers to learning, if any, were acknowledged. Record prior RSV Vaccine (historical) Hepatitis A Vaccine: Administration of Hepatitis A Vaccine: Combination HAV/HBV vaccine (Dose #1) Administered: HEP A-HEP B Date Administered: Apr 20, 2024 09:00 Series: Series 1 Sr. Media Manager: [employer] Lot: [id number] Exp Date: Mar 21, 2025 ND: [id number] Admin Route/Site: INTRAMUSCULAR/LEFT DELTOID Dosage: 1mL Vaccine Information Statement(s): HEPATITIS B VACCINE VIS August 01, 2022 (PUERTO RICAN) Order By: Policy Administered By: Roby Hurtado /carlos manuel/ ROBY HURTADO LPN Signed: 04/20/2024 09:44 ABY [facility]UR[facility]ADO [facility]
== END 2024-07-04 08:54 | disposition home or self-care (01) ==
LOC: HO.MRI 08:53
PROVIDERS: PCP Physician Assistant; Visit Provider Internal Medicine
DX: K86.2 Cyst of pancreas (principal)
CPT/HCPCS: 74183; A9585

== ENCOUNTER → 2024-07-04 09:02 | Outpatient (BNV) | payer OTHER, MEDICARE, SELFPAY | PROVIDERS: PCP Physician Assistant; Visit Provider Radiology Diagnostic Radiology | DX: K86.2 Cyst of pancreas (principal); K72.90 Hepatic failure, unspecified without coma | CPT/HCPCS: 74183 ==

== ENCOUNTER 2024-08-18 10:36 | Day surgery (SDC) | payer OTHER, SELFPAY ==
--- OUTSIDE RECORDS SUMMARY | 2024-07-15 06:23 | XMS_ITS ---
Author Name [facility] [place] Organization [place] Address [address] [place] [address] Care Team Providers Care Actuarial Assistant Name Role Phone AMADOR TORRES Primary Care [...] PART B Sep 21, 2015 PART B [id number] NENO ABBOTT JR PATIENT MEDICARE (WNR) MEDICARE (M) PART A Nov 21, 2013 PART A [id number] [phone] NENO ABBOTT JR PATIENT MEDICARE (WNR) MEDICARE (M) PART A Nov 21, 2013 PART A [id number] [phone] NENO ABBOTT JR PATIENT MEDICARE (WNR) MEDICARE (M) PART A Nov 21, 2013 PART A [id number] NENO ABBOTT PATIENT MEDICARE (WNR) MEDICARE (M) PART A Nov 21, 2013 PART A [id number] NENO ABBOTT PATIENT MEDICARE (WNR) MEDICARE (M) PART A Nov 21, 2013 PART A [id number] PA85 NENO ABBOTT JR PATIENT Selected Encounter This section includes the information on record at [place] for the Encounter. Date/Time Encounter Type Encounter Description Reason Pro vider Source Jul 14, 2024 02:33 PM Outpatient Encounter COMMUNITY CARE CONSULT IHE Encounter Template Text not used by [place] Plan of Treatment: Future Appointments (+ 6 months) and Future Tests (+/- 45 days) The Plan of Treatment section includes future care activities for the patient from all [place] [facility] This section includes future appointments and future orders which are active, pending or scheduled. Future Appointments This section includes appointments that were scheduled to occur 6 months from the date of the Encounter, up to a maximum of 20 appointments. The data comes from all [place] treatment facilities. Appointment Date/Time Appointment Type Appointme nt Facility Name August 03, 2024 03:00 PM [facility] August 03, 2024 03:30 PM [facility] August 18, 2024 11:30 AM AMBULAT[facility] - [facility] Sep 15, 2024 10:30 AM AMBULATORY MEDICINE [facility] Active, Pending, and Scheduled Orders This section includes a listing of several types of active, pending, and scheduled orders, including clinic medications orders, diagnostic test orders, procedure orders and consult orders; where the start date of the order is 45 days before the date of the Encounter or 45 days after the date of theEncounter. The data comes from all [place] treatment facilities. Test Date/Time Test Type Test Details Facility Name Jul 14, 2024 03:39 PM Consult Order COMMUNITY CARE-GI GENERAL Cons Digital Controls Technical Officer's [facility] Social History: Smoking Status (Most [...] place. Date/Time Current Smoking Status Comment Nusrat holland Apr 20, 2024 09:00 AM VA-TOBACCO USE FOR TIMI CIGARETTES [facility] Tobacco Use History This section includes a history of the smoking, or tobacco-related health factors, that were collected on or before the date of the Encounter. The data comes from the [place] facility where the Encounter took place. Date/Time Smoking Status/Tobacco Use Comment F acility Apr 20, 2024 09:00 AM VA-TOBACCO USE PATSY RY DAY OTHER TYPE [place] [facility] Apr 20, 2024 09:00 AM VA-TOBACCO USE FOR TIMI CIGARETTES HI [place]TR [place] [facility] Mar 05, 2023 01:21 PM VA-TOBACCO NEVER USED HI [place] [facility] Dec 24, 2021 11:30 AM VA-TOBACCO NEVER USED [place] [facility] Dec 28, 2020 03:30 PM VA-TOBACCO NEVER USED HI [place] [facility] Dec 21, 2019 09:00 AM VA-TOBACCO FORMER USER HI [place] [facility] Dec 21, 2019 09:00 AM VA-TOBACCO QUIT 15 YRS OR MORE HI [place] [facility] May 18, 2018 08:51 AM VA-TOBACCO FORMER USER [place] [facility] May 18, 2018 08:51 AM VA-TOBACCO QUIT 15 YRS OR MORE HI [place] [facility] Nov 02, 2017 08:19 AM QUIT TOBACCO USE > 7 YEARS AGO HI [place] [facility] Nov 04, 2016 09:14 AM QUIT TOBACCO USE > 7 YEARS AGO HI [place] [facility] Sep 21, 2015 09:08 AM QUIT TOBACCO USE > 7 YEARS AGO . [place] [facility] Jan 17, 2013 02:27 PM QUIT TOBACCO USE > 7 YEARS AGO . [place] [facility] Encounter Notes: All associated encounter notes This section contains the clinical notes associated to the Encounter. Date/Time Encounter Note(s) Provider Source Jul 14, 2024 02:33 PM ADMINISTRATIVE NOT E: LOCAL TITLE: ADMINISTRATIVE NOTE STANDARD TITLE: ADMINISTRATIVE NOTE DATE OF NOTE: JUL 14, 2024@14:33 ENTRY DATE: JUL 14, 2024@14:33:40 AUTHOR: GILSON QUILES EXP COSIGNER: URGENCY: STATUS: COMPLETED ADMINISTRATIVE NOTE Has ADDENDA Rec'd a call from [facility], they have scheduled for his colonoscopy procedure 08/18/24 @ 1:00pm, current consult #[id number] has and a new consult is needed if approved, office stated that is aware of appt. procedure 08/18/24 @ 1pm, requesting arrival time of 11:30 [facility] [address] [place] [address], [address] Floor [place], [place] PH: [phone] FX: [phone] TAX ID [id number] Procedures at [address] Provider will schedule and notify [facility] Pre auth; yes POC lead is Vicki Lancaster, Dr. Sylvie Villegas, Bruna Loya, HARSHAL, DR. DONI MONAHAN, FADUMO Gutiérrez Clementina Mane NP /carlos manuel/ GILSON QUILES Signed: 07/14/2024 14:35 Receipt Acknowledged By: * AWAITING SIGNATURE * MELANIE SOLIS 07/14/2024 19:50 /es/ AVTAR OWENS FISCAL ECONOMIST 07/14/2024 15:39 /es/ Amador Torres PA-C STAFF PHYSICIAN COLLEGE HIRE 07/14/2024 14:46 /es/ ROBIN BELLE, CAMI REGISTERED NURSE * AWAITING SIGNATURE * ROBY HURTADO 07/14/2024 ADDENDUM STATUS: COMPLETED Consult entered, pending provider signature. /es/ ROBIN BELLE, CAMI REGISTERED NURSE Signed: 07/14/2024 14:46 GILSON QUILES [facility] W[facility]
--- OUTSIDE RECORDS SUMMARY | 2024-07-15 06:23 | XMS_ITS | Continuity of Care Document ---
Author Name [facility] Organization [facility] Care Team Providers Care Shop Estimator Name Role Phone [facility] Unavailable Unavailable Problems Combined list of problems [...] HCS LOW BACK PAIN, LUMBAGO Active Condition [facility] [place] [facility] Obesity Active Condition [facility] [place] [facility] Diagnosis: ICD-10-CM I11.9 Hypertensive heart disease without heart failure Active Diagnosis [facility] [place] [facility] Diagnosis: ICD-10-CM I10 Essential (primary) hypertension Active Diagnosis [facility] [place] Diagnosis: ICD-10-CM Z77.29 Contact with and exposure to other hazardous substances Active Diagnosis [facility] [place] Diagnosis: ICD-10-CM H40.1131 Primary open-angle glaucoma, bilateral, mild stage Active Diagnosis [facility] Medications Combined list of outpatient medications from Department of Defense and Veterans Affairs facilities.Medications provided include 1) outpatient medications from the last 15 months, and 2) patient-reported medications. Medication Details Route Status Patient Instructions Prescription Expires Prescription Number Last Dispense Date Ordering Provider Order Date Order Qty Source ALLOPURINOL 300MG TAB TAKE ONE TABLET BY MOUTH DAILY FOR GOUT ORAL ACTIVE 10/20/2024 [id number] AMADOR RICE 2023 90 [facility] [place] [facility] ALLOPURINOL 300MG TAB TAKE ONE TABLET BY MOUTH DAILY FOR GOUT ORAL DISCONT INUED 10/28/2023 [id number] AMADOR RICE 2022 90 [facility] [place] [facility] AMLODIPINE BESYLATE 10MG TAB TAKE ONE TABLET BY MOUTH ONCE DAILY FOR BLOOD PRESSURE /HEART, DO NOT TAKE WITH GRAPEFRU IT JUICE ORAL DISCONT INUED (EDIT) 06/05/2024 [id number] AMADOR RICE 2023 90 [facility] [place] [facility] AMLODIPINE BESYLATE 5MG TAB TAKE ONE TABLET BY MOUTH ONCE DAILY FOR BLOOD PRESSURE /HEART, DO NOT TAKE WITH GRAPEFRU IT JUICE ORAL ACTIVE 10/20/2024 [id number] AMADOR RICE 2023 90 [facility] [place] ATORVASTATI N CA 20MG TAB TAKE ONE-HALF TABLET BY MOUTH DAILY FOR CHOLESTE ROL ORAL ACTIVE 10/20/2024 [id number] AMADOR RICE 2023 45 [facility] [place] ATORVASTATI N CA 20MG TAB TAKE ONE-HALF TABLET BY MOUTH DAILY FOR CHOLESTE ROL ORAL DISCONT INUED 10/28/2023 [id number] AMADOR RICE 2022 45 [facility] [place] HYDROCHLORO THIAZIDE 25MG TAB TAKE ONE TABLET BY MOUTH EVERY MORNING TO PREVENT FLUID/CO NTROL BLOOD PRESSURE ORAL ACTIVE 10/20/2024 [id number] AMADOR RICE 2023 90 [facility] [place] HYDROCHLORO THIAZIDE 25MG TAB TAKE ONE TABLET BY MOUTH EVERY MORNING TO PREVENT FLUID/CO NTROL BLOOD PRESSURE ORAL DISCONT INUED 10/28/2023 [id number] AMADOR RICE 2022 90 [facility] [place] LATANOPROST 0.005% SOLN,OPH INSTILL 1 DROP INTO EACH EYE ONCE DAILY TO REDUCE PRESSURE IN THE EYE OPHTHA LMIC ACTIVE 09/20/2024 [id number] 5 HA,LAC EY J 2024 7.5 [facility] [place] LATANOPROST 0.005% SOLN,OPH INSTILL 1 DROP INTO EACH EYE ONCE DAILY TO REDUCE PRESSURE IN THE EYE OPHTHA LMIC DISCONT INUED 07/09/2024 [id number] HA,LAC EY J 2023 7.5 [facility] [place] LISINOPRIL 40MG TAB TAKE ONE TABLET BY MOUTH DAILY TO CONTROL BLOOD PRESSURE ORAL ACTIVE 10/20/2024 [id number] AMADOR RICE 2023 90 [facility] [place] LISINOPRIL 40MG TAB TAKE ONE TABLET BY MOUTH DAILY TO CONTROL BLOOD PRESSURE ORAL DISCONT INUED 10/28/2023 [id number] AMADOR RICE 2022 90 [facility] MULTIVITAMI NS CAP/TAB TAKE ONE TABLET BY MOUTH ONCE DAILY ORAL ACTIVE AMADOR RICE 2024 [facility] Allergies, Adverse Reactions, Alerts Combined list of allergies from Department of Defense and Veterans Affairs facilities. It does not include entries that were removed or entered in error. Substance Category Reaction Severity Reaction type Status Date Reported Comments Source ATENOLOL Propensity to adverse reactions to drug (finding) active [facility] [place] Immunizations Combined list of available immunizations from the Department of [facility] and Veterans Affairs facilities. Immunization Series Date Given Administered By Site Reaction Lot Number CVX Code Drug Cone Marker Status Comments Source HEP A-HEP B 1 2024 [facility] LEFT DELTO ID [id number] 104 complet ed [facility] RSV, RECOMBINANT, PROTEIN SUBUNIT RSVPREF3, ADJUVANT RECONSTITUTED , 0.5 ML, PF 1 2024 [facility] LEFT DELTO ID [id number] 303 complet ed [facility] INFLUENZA, HIGH-DOSE, QUADRIVALENT 2023 [facility] LEFT DELTO ID [id number] 197 complet ed Booster for Series, [facility] INFLUENZA, INJECTABLE, QUADRIVALENT, PRESERVATIVE FREE 2021 150 complet ed [facility] COVID-19 (MODERNA), MRNA, LNP-S, PF, 100 MCG OR 50 MCG DOSE 3 2021 207 complet ed MOD; [id number]; 2 [facility] INFLUENZA VACCINE, QUADRIVALENT, ADJUVANTED 2020 205 complet ed [facility] COVID-19 (MODERNA), MRNA, LNP-S, PF, 100 MCG/0.5 ML DOSE 2 2020 207 complet ed [facility] COVID-19 (MODERNA), MRNA, LNP-S, PF, 100 MCG/0.5 ML DOSE 1 2020 207 complet ed [facility] INFLUENZA, INJECTABLE, QUADRIVALENT, PRESERVATIVE FREE 2019 150 [...] [address] Tillman [facility] [place] [...] Apr 05, 2024 06:00 PM Reporting Lab: [facility] [address] [facility] [address] Performing Lab: [facility] [address] [facility] [address] [facility] LIPID PANEL FASTING CHOLESTERO L [MASS/VOLU ME] IN SERUM OR PLASMA 190 mg/dL 04/19 Specimen Type: SERUM No comment entered. Ordering Provider: Alfonso RICE Report Released Date/Time: Apr 05, 2024 06:00 PM Reporting Lab: [facility] [place] [facility] [place] [address] [facility] [address] Performing Lab: [facility] [address] [facility] [address] [facility] LIPID PANEL FASTING TRIGLYCERI DE [MASS/VOLU ME] IN SERUM OR PLASMA 88 mg/dL 0 - 150 04/19 Specimen Type: SERUM No comment entered. Ordering Provider: Alfonso RICE Report Released Date/Time: Apr 05, 2024 06:00 PM Reporting Lab: [facility] [address] [facility] [address] Performing Lab: [facility] [place] [facility] [place] [address] [facility] [address] [facility] [place] LIPID PANEL FASTING CHOLESTERO L IN LDL [MASS/VOLU ME] IN SERUM OR PLASMA BY CALCULATIO N 113 mg/dL 0 - 129 04/19 Specimen Type: SERUM No comment entered. Ordering Provider: Alfonso RICE Report Released Date/Time: Apr 05, 2024 06:00 PM Reporting Lab: [facility] [place] [facility] [place] [address] [facility] [address] Performing Lab: [facility] [place] [facility] [place] [address] [facility] [address] [facility] [place] LIPID PANEL FASTING CHOLESTERO L.TOTAL/CH OLESTEROL IN HDL [MASS RATIO] IN SERUM OR PLASMA 3.2 04/19 Specimen Type: SERUM No comment entered. Ordering Provider: Alfonso RICE Report Released Date/Time: Apr 05, 2024 06:00 PM Reporting Lab: [facility] [place] [facility] [place] [address] [facility] [address] Performing Lab: [facility] [place] [facility] [place] [address] [facility] [address] [facility] [place] LIPID PANEL FASTING CHOLESTERO L IN HDL [MASS/VOLU ME] IN SERUM OR PLASMA 59 mg/dL 40 - 60 04/19 Specimen Type: SERUM No comment entered. Ordering Provider: Alfonso RICE Report Released Date/Time: Apr 05, 2024 06:00 PM Reporting Lab: [facility] [place] [facility] [place] [address] [facility] [address] Performing Lab: [facility] [place] [facility] [place] [address] [facility] [address] [facility] [place] [place] LIVER FUNCTION PROTEIN [MASS/VOLU ME] IN SERUM OR PLASMA 7.1 g/dL 6.0 - 8.3 01/28 /2025 Specimen Type: SERUM No comment entered. Ordering Provider: Alfonso RICE Report Released Date/Time: Apr 05, 2024 06:00 PM Reporting Lab: [facility] [place] [facility] [place] [address] [facility] [address] Performing Lab: [facility] [place] [facility] [place] [address] [facility] [address] [facility] [place] [facility] [place] LIVER FUNCTION ALBUMIN [MASS/VOLU ME] IN SERUM OR PLASMA 3.9 g/dL 3.5 - 5.0 04/19 Specimen Type: SERUM No comment entered. Ordering Provider: Alfonso RICE Report Released Date/Time: Apr 05, 2024 06:00 PM Reporting Lab: [facility] [place] [facility] [place] [address] [facility] [address] Performing Lab: [facility] [place] [address] [address] [place] [facility] [place] [facility] [place] LIVER FUNCTION ALKALINE PHOSPHATAS E [ENZYMATIC ACTIVITY/V OLUME] IN SERUM OR PLASMA 48 U/L 40 - 150 04/19 Specimen Type: SERUM No comment entered. Ordering Provider: Alfonso RICE Report Released Date/Time: Apr 05, 2024 06:00 PM Reporting Lab: [facility] [place] [facility] [place] [address] [facility] [address] Performing Lab: [facility] [place] [facility] [place] [address] [facility] [address] [facility] [place] [facility] [place] LIVER FUNCTION ASPARTATE AMINOTRANS FERASE [ENZYMATIC ACTIVITY/V OLUME] IN SERUM OR PLASMA 22 U/L 5 - 34 04/19 Specimen Type: SERUM No comment entered. Ordering Provider: Alfonso RICE Report Released Date/Time: Apr 05, 2024 06:00 PM Reporting Lab: [facility] [place] [facility] [place] [address] [facility] [address] Performing Lab: [facility] [place] [facility] [place] [address] [facility] [address] [facility] [place] [facility] [place] LIVER FUNCTION ALANINE AMINOTRANS FERASE [ENZYMATIC ACTIVITY/V OLUME] IN SERUM OR PLASMA 16 U/L 04/19 Specimen Type: SERUM No comment entered. Ordering Provider: Alfonso RICE Report Released Date/Time: Apr 05, 2024 06:00 PM Reporting Lab: [facility]ENTERTRN [facility] [address] [facility] [address] Performing Lab: [facility]N [facility] [address] [facility] [address] [facility]ITALRL [facility] LIVER FUNCTION BILIRUBIN. TOTAL [MASS/VOLU ME] IN SERUM OR PLASMA 0.7 mg/dL 0.2 - 1.2 04/19 Specimen Type: SERUM No comment entered. Ordering Provider: Alfonso RICE Report Released Date/Time: Apr 05, 2024 06:00 PM Reporting Lab: [facility] [address] [address] Performing Lab: [facility]ITAL[facility]N [facility] [address] [facility] [address] [facility] BASIC METABOLI C PANEL (fasting ) UREA NITROGEN [MASS/VOLU ME] IN SERUM OR PLASMA 31 mg/dL 7 - 25 04/19 H Specimen Type: SERUM No comment entered. Ordering Provider: Alfonso RICE Report Released Date/Time: Apr 05, 2024 06:00 PM Reporting Lab: [facility] [address] [facility] [address] Performing Lab: [facility] TRN [facility]USE[facility] [address] [facility] [address] [facility]ITALRSHOALS HOSPITALN [facility] BASIC METABOLI C PANEL (fasting ) GLUCOSE [MASS/VOLU ME] IN SERUM OR PLASMA 100 mg/dL 65 - 100 04/19 Specimen Type: SERUM No comment entered. Ordering Provider: Alfonso RICE Report Released Date/Time: Apr 05, 2024 06:00 PM Reporting Lab: [facility]RWO[facility] CENTERTRN [facility] CENTERUSE[address] [address] Performing Lab: [facility] [place] [facility] [place] [address] [facility] [address] [facility] [facility] BASIC METABOLI C PANEL (fasting ) SODIUM [MOLES/VOL UME] IN SERUM OR PLASMA 139 mmol/L 135 - 145 04/19 Specimen Type: SERUM No comment entered. Ordering Provider: Alfonso RICE Report Released Date/Time: Apr 05, 2024 06:00 PM Reporting Lab: [facility] [place] [facility] [place] [address] [facility] [address] Performing Lab: [facility]ENTERUSETS [facility] [place] [address] [facility] [address] [facility]R WSTRN [facility]ENTERUSE [facility] BASIC METABOLI C PANEL (fasting ) POTASSIUM [MOLES/VOL UME] IN SERUM OR PLASMA 4.2 mmol/L 3.5 - 5.0 04/19 Specimen Type: SERUM No comment entered. Ordering Provider: Alfonso RICE Report Released Date/Time: Apr 05, 2024 06:00 PM Reporting Lab: [facility] [place] [facility] [place] [address] [facility] [address] Performing Lab: [facility] [place] [facility] [place] [address] [facility] [address] [facility]RL WSTRN [facility]ENTERUSE [facility] BASIC METABOLI C PANEL (fasting ) CHLORIDE [MOLES/VOL UME] IN SERUM OR PLASMA 105 mmol/L 100 - 110 04/19 Specimen Type: SERUM No comment entered. Ordering Provider: Alfonso RICE Report Released Date/Time: Apr 05, 2024 06:00 PM Reporting Lab: [facility] [place] [facility] [place] [address] [facility] [address] Performing Lab: [facility] [place] [facility] [place] [address] [facility] [address] [facility]ITALRL WSTRN [facility]ENTERUSE [facility] BASIC METABOLI C PANEL (fasting ) CARBON DIOXIDE, TOTAL [MOLES/VOL UME] IN SERUM OR PLASMA 23 meq/L 20 - 30 04/19 Specimen Type: SERUM No comment entered. Ordering Provider: Alfonso RICE Report Released Date/Time: Apr 05, 2024 06:00 PM Reporting Lab: [facility] [place] [facility] [place] [address] [facility] [address] Performing Lab: [facility] [place] [facility] [place] [address] [facility] [address] [facility] [place] [facility] BASIC METABOLI C PANEL (fasting ) CREATININE [MASS/VOLU ME] IN SERUM OR PLASMA 1.04 mg/dL 0.50 - 1.40 04/19 Specimen Type: SERUM No comment entered. Ordering Provider: Alfonso RICE Report Released Date/Time: Apr 05, 2024 06:00 PM Reporting Lab: [facility] [place] [address] [address] Performing Lab: [facility] [place] [address] [address] [facility] [place] [facility] BASIC METABOLI C PANEL (fasting ) GLOMERULAR FILTRATION RATE/1.73 SQ M.PREDICTE D [VOLUME RATE/AREA] IN SERUM, PLASMA OR BLOOD BY CREATININE -BASED FORMULA (CKD-EPI 2020) 74 mL/min 60 04/19 Specimen Type: SERUM No comment entered. Ordering Provider: Alfonso RICE Report Released Date/Time: Apr 05, 2024 06:00 PM Reporting Lab: [facility] [place] [address] [address] Performing Lab: [facility] [place] [address] [address] [facility] [place] [facility] [place] BASIC METABOLI C PANEL (fasting ) UREA NITROGEN [MASS/VOLU ME] IN SERUM OR PLASMA 28 mg/dL 7 - 25 06/04 H Specimen Type: SERUM No comment entered. Ordering Provider: Alfonso RICE Report Released Date/Time: May 27, 2023 11:14 AM Reporting Lab: [facility] [place] [address] [address] Performing Lab: [facility] [place] [facility] [address] [facility] [address] [facility]ITALRL TRN [facility]ENTERUSE [facility] BASIC METABOLI C PANEL (fasting ) GLUCOSE [MASS/VOLU ME] IN SERUM OR PLASMA 102 mg/dL 65 - 100 06/04 H Specimen Type: SERUM No comment entered. Ordering Provider: Alfonso RICE Report Released Date/Time: May 27, 2023 11:14 AM Reporting Lab: [facility]RL [facility]N [facility] CENTERUSE[address] [address] Performing Lab: [facility]RL TRN [facility]ENTERUSE[address] [address] [facility]PITALRSHOALS HOSPITALN [facility]ENTERUSE [facility] BASIC METABOLI C PANEL (fasting ) SODIUM [MOLES/VOL UME] IN SERUM OR PLASMA 140 mmol/L 135 - 145 06/04 Specimen Type: SERUM No comment entered. Ordering Provider: Alfonso RICE Report Released Date/Time: May 27, 2023 11:14 AM Reporting Lab: [facility]RL [facility]N [facility]ENTERUSE[address] [address] Performing Lab: [facility]RL TRN [facility] CENTERUSE[address] [address] [facility] BASIC METABOLI C PANEL (fasting ) POTASSIUM [MOLES/VOL UME] IN SERUM OR PLASMA 3.9 mmol/L 3.5 - 5.0 06/04 Specimen Type: SERUM No comment entered. Ordering Provider: Alfonso RICE Report Released Date/Time: May 27, 2023 11:14 AM Reporting Lab: [facility] [place] [address] [address] Performing Lab: [facility]RL TRN [facility]ENTERUSE[address] [address] [facility]PITALRSHOALS HOSPITALN [facility]ENTERUSE [facility] BASIC METABOLI C PANEL (fasting ) CHLORIDE [MOLES/VOL UME] IN SERUM OR PLASMA 103 mmol/L 100 - 110 06/04 Specimen Type: SERUM No comment entered. Ordering Provider: Alfonso RICE Report Released Date/Time: May 27, 2023 11:14 AM Reporting Lab: [facility] [place] [facility] [place] [address] [facility] [address] Performing Lab: [facility] [place] [facility] [place] [address] [facility] [address] [place] [facility] [place] [facility] BASIC METABOLI C PANEL (fasting ) CARBON DIOXIDE, TOTAL [MOLES/VOL UME] IN SERUM OR PLASMA 24 meq/L 20 - 30 06/04 Specimen Type: SERUM No comment entered. Ordering Provider: Alfonso RICE Report Released Date/Time: May 27, 2023 11:14 AM Reporting Lab: [facility] [place] [facility] [place] [address] [facility] [address] Performing Lab: [place] [facility] [place] [address] [address] [facility] [place] [facility] BASIC METABOLI C PANEL (fasting ) CREATININE [MASS/VOLU ME] IN SERUM OR PLASMA 1.08 mg/dL 0.50 - 1.40 06/04 Specimen Type: SERUM No comment entered. Ordering Provider: Alfonso RICE Report Released Date/Time: May 27, 2023 11:14 AM Reporting Lab: [facility] [place] [address] [address] Performing Lab: [facility] [place] [address] [address] [facility] [place] [facility] BASIC METABOLI C PANEL (fasting ) GLOMERULAR FILTRATION RATE/1.73 SQ M.PREDICTE D [VOLUME RATE/AREA] IN SERUM, PLASMA OR BLOOD BY CREATININE -BASED FORMULA (CKD-EPI 2020) 72 mL/min 60 06/04 Specimen Type: SERUM No comment entered. Ordering Provider: Alfonso RICE Report Released Date/Time: May 27, 2023 11:14 AM Reporting Lab: [facility] [place] [address] [address] Performing Lab: [facility] [place] [address] [address] [facility] URIC ACID URATE [MASS/VOLU ME] IN SERUM OR PLASMA 5.2 mg/dL 3.5 - 7.2 06/04 Specimen Type: SERUM No comment entered. Ordering Provider: Alfonso RICE Report Released Date/Time: May 27, 2023 11:14 AM Reporting Lab: [facility] [place] [facility] [place] [address] [facility] [address] Performing Lab: [facility] [place] [facility] [address] [facility] [address] [facility] [place] [facility] [place] LIVER FUNCTION PROTEIN [MASS/VOLU ME] IN SERUM OR PLASMA 6.9 g/dL 6.0 - 8.3 06/04 Specimen Type: SERUM No comment entered. Ordering Provider: Alfonso RICE Report Released Date/Time: May 27, 2023 11:14 AM Reporting Lab: [facility] [place] [facility] [address] [facility] [address] Performing Lab: [facility] [place] [facility] [place] [address] [facility] [address] [facility] [place] [facility] [place] LIVER FUNCTION ALBUMIN [MASS/VOLU ME] IN SERUM OR PLASMA 3.7 g/dL 3.5 - 5.0 06/04 Specimen Type: SERUM No comment entered. Ordering Provider: Alfonso RICE Report Released Date/Time: May 27, 2023 11:14 AM Reporting Lab: [facility] [place] [facility] [address] [facility] [address] Performing Lab[facility] [place] [facility] [place] [address] [facility] [address] [facility] [place] [facility] [place] [facility] ALKALINE PHOSPHATAS E [ENZYMATIC ACTIVITY/V OLUME] IN SERUM OR PLASMA 45 U/L 40 - 150 06/04 Specimen Type: SERUM No comment entered. Ordering Provider: Alfonso RICE Report Released Date/Time: May 27, 2023 11:14 AM Reporting Lab: [facility] [place] [facility] [place] [address] [facility] [phone] Performing Lab: [facility] [place] [facility] [place] [address] [facility] [address] [facility] [place] [facility] [place] [facility] ASPARTATE AMINOTRANS FERASE [ENZYMATIC ACTIVITY/V OLUME] IN SERUM OR PLASMA 24 U/L 5 - 34 06/04 Specimen Type: SERUM No comment entered. Ordering Provider: Alfonso RICE Report Released Date/Time: May 27, 2023 11:14 AM Reporting Lab: [facility] [place] [facility] [place] [address] [facility] [address] Performing Lab: [facility] [place] [facility] [place] [address] [facility] [address] [facility] [facility] ALANINE AMINOTRANS FERASE [ENZYMATIC ACTIVITY/V OLUME] IN SERUM OR PLASMA 20 U/L 06/04 Specimen Type: SERUM No comment entered. Ordering Provider: Alfonso RICE Report Released Date/Time: May 27, 2023 11:14 AM Reporting Lab: [facility] [place] [facility] [place] [address] [facility] [phone] Performing Lab: [facility] [place] [facility] [place] [address] [facility] [address] [place] [facility] [facility] LIVER FUNCTION BILIRUBIN. TOTAL [MASS/VOLU ME] IN SERUM OR PLASMA 0.5 mg/dL 0.2 - 1.2 06/04 Specimen Type: SERUM No comment entered. Ordering Provider: Alfonso RICE Report Released Date/Time: May 27, 2023 11:14 AM Reporting Lab: [facility] [place] [facility] [place] [address] [facility] [address] Performing Lab: [facility] [facility] [place] [address] [facility] [address] [place] [facility] [facility] [place] LIPID PANEL FASTING CHOLESTERO L [MASS/VOLU ME] IN SERUM OR PLASMA 180 mg/dL 06/04 Specimen Type: SERUM No comment entered. Ordering Provider: Alfonso RICE Report Released Date/Time: May 27, 2023 11:14 AM Reporting Lab: [facility] [facility] [place] [address] [facility] [address] Performing Lab: [facility] [place] [facility] [place] [address] [facility] [address] [place] [facility] [place] [facility] [place] LIPID PANEL FASTING TRIGLYCERI DE [MASS/VOLU ME] IN SERUM OR PLASMA 79 mg/dL 0 - 150 06/04 Specimen Type: SERUM No comment entered. Ordering Provider: Alfonso RICE Report Released Date/Time: May 27, 2023 11:14 AM Reporting Lab: [facility] [facility] [place] [address] [facility] [address] Performing Lab: [facility] [facility] [place] [address] [facility] [address] [place] [facility] [place] [facility] [place] LIPID PANEL FASTING CHOLESTERO L IN LDL [MASS/VOLU ME] IN SERUM OR PLASMA BY CALCULAVALERIEO N 105 mg/dL 0 - 129 06/04 Specimen Type: SERUM No comment entered. Ordering Provider: Alfonso RICE Report Released Date/Time: May 27, 2023 11:14 AM Reporting Lab: [facility] [facility] [place] [address] [facility] [address] Performing Lab: [facility] [facility] [place] [address] [facility] [address] [place] [facility] [place] [facility] [place] LIPID PANEL FASTING CHOLESTERO L.TOTAL/CH OLESTEROL IN HDL [MASS RATIO] IN SERUM OR PLASMA 3.1 06/04 Specimen Type: SERUM No comment entered. Ordering Provider: Alfonso RICE Report Released Date/Time: May 27, 2023 11:14 AM Reporting Lab: [facility] [facility] [place] [address] [facility] [address] Performing Lab: [facility] [facility] [place] [address] [facility] [address] [place] [facility] [place] [facility] [place] LIPID PANEL FASTING CHOLESTERO L IN HDL [MASS/VOLU ME] IN SERUM OR PLASMA 59 mg/dL 40 - 60 06/04 Specimen Type: SERUM No comment entered. Ordering Provider: Alfonso RICE Report Released Date/Time: May 27, 2023 11:14 AM Reporting Lab: [facility] [address] [facility] [address] Performing Lab: [address] [address] [facility] HCV RNA PCR PANEL(WH V) HEPATITIS C VIRUS RNA [PRESENCE] IN SERUM OR PLASMA BY GERMAINE WITH PROBE DETECTION Not Detected 10/22 Specimen Type: SERUM Comment: Assay performed using the Advanced Liquid LogicniAppifier m HCV nucleic acid amplificati on test [...] May 06, 2022 01:46 PM Reporting Lab: [address] [address] Performing Lab: [address] [address] [facility] LIPID PANEL FASTING CHOLESTERO L [MASS/VOLU ME] IN SERUM OR PLASMA 174 mg/dL 10/22 Specimen Type: SERUM Comment: BUN Verified by repeat analysis. Ordering Provider: Alfonso RICE Report Released Date/Time: May 06, 2022 01:46 PM Reporting Lab: [facility] [address] [facility] [address] Performing Lab: [address] [address] [facility] LIPID PANEL FASTING TRIGLYCERI DE [MASS/VOLU ME] IN SERUM OR PLASMA 92 mg/dL 0 - 150 10/22 Specimen Type: SERUM Comment: BUN Verified by repeat analysis. Ordering Provider: Alfonso RICE Report Released Date/Time: May 06, 2022 01:46 PM Reporting Lab: [facility] [address] [address] Performing Lab: [place] [facility] [facility] [address] [address] [facility] LIPID PANEL FASTING CHOLESTERO L IN LDL [MASS/VOLU ME] IN SERUM OR PLASMA BY CALCULATIO N 99 mg/dL 0 - 129 10/22 Specimen Type: SERUM Comment: BUN Verified by repeat analysis. Ordering Provider: Alfonso RICE Report Released Date/Time: May 06, 2022 01:46 PM Reporting Lab: [facility] [address] [address] Per[facility] Lab: [facility] [address] [address] [facility] LIPID PANEL FASTING CHOLESTERO L.TOTAL/CH OLESTEROL IN HDL [MASS RATIO] IN SERUM OR PLASMA 3.1 10/22 Specimen Type: SERUM Comment: BUN Verified by repeat analysis. Ordering Provider: Alfonso RICE Report Released Date/Time: May 06, 2022 01:46 PM Reporting Lab: [facility] [place] [address] [address] Performing Lab: [facility] [address] [address] [facility] LIPID PANEL FASTING CHOLESTERO L IN HDL [MASS/VOLU ME] IN SERUM OR PLASMA 57 mg/dL 40 - 60 10/22 Specimen Type: SERUM Comment: BUN Verified by repeat analysis. Ordering Provider: Alfonso RICE Report Released Date/Time: May 06, 2022 01:46 PM Reporting Lab: [facility] [place] [facility] [address] [facility] [address] Performing Lab: [facility] [place] [facility] [address] [facility] [address] [facility] [place] [facility] Vital [...] 10/20/2023 14:08:48 [facility] [place] [facility] Encounters Combined list of: 1) Encounters from Department of Veterans Affairs facilities going backup to the last 18 months, not all [place] inpatient encounters are included; 2) Encounters from the Department of [facility] facilities going backup to 280 months. Location Location Details Encounter Type Encounter Number Reason For Visit Attending Provider ADM Date DC Date Status Disposition Source [place] [facility] [facility] [place] Encounter [id number] 03/05 [place] [facility] [facility] [facility] [place] FIELD XM [id number] Diagnos is: ICD-10- CM H40.113 1 Primary open-an gle glaucom a, bilater al, mild stage HA,LACE Y J 05/28 [place] [facility] [facility] [facility] [place] CMPTR OPHTH IMG OPTIC NERVE [id number] Diagnos is: ICD-10- CM H40.113 1 Primary open-an gle glaucom a, bilater al, mild stage HA,LACE Y J 05/28 [place] [facility] [facility] [place] [facility] [place] COMPRE OPH EXAM EST PT 1/> [id number] Diagnos is: ICD-10- CM H40.113 1 Primary open-an gle glaucom a, bilater al, mild stage HA,LACE Y J 05/28 [place] [facility] [place] [facility] [place] [facility] [place] [facility] [place] Out[place] [facility]counter [id number] 06/04 [place] [facility] [place] [facility] [place] [facility] [place] [facility] [place] OFFICE O/P EST LOW 20 MIN [id number] Diagnos is: ICD-10- CM Z77.29 Contact with and exposur e to other hazardo us substan moiz LINDAAMADOR KUO 06/04 [facility] [place] [facility] [place] [facility] En[facility] [id number] 10/08 [facility] [place] [facility] [place] [facility] En[facility] [id number] 10/12 [facility] [place] [facility] [place] [facility] OFF[facility] O/P EST LOW 20 MIN [id number] Diagnos is: ICD-10- CM I10 Essenti al (primar y) hyperte nsalejandra MCKEONAMADOR KUO 10/19 [facility] [place] [facility] [facility] [place] [facility] [id number] 1.12/15 [facility] [place] [facility] [facility] [place] [facility] [id number] 1.12/20 [facility] [place] [facility] [facility] [place] [facility] [id number] 1.12/20 [facility] [place] [facility] [facility] [place] [facility] [id number] 1.12/22 [facility] [place] [facility] [facility] [place] [facility] [id number] 1.01/04 [facility] [place] [facility] [place] [facility] En[facility] [id number] 1.01/12 [facility] [place] [facility] [facility] [place] [facility]counter [id number] 03/07 [facility] [place] [facility] [place] [facility] [place] OFFICE O/P EST LOW 20 MIN [id number] Diagnos is: ICD-10- CM I11.9 Hyperte nsive heart disease without heart failure AMADOR RICE 04/20 [facility] [place] [facility] [facility] [place] [facility] En[facility] [id number] 04/25 [facility] [place] [facility] [place] [facility] En[facility] [id number] 04/26 [facility] [place] [facility] [facility] [place] [facility] Encounter [id number] 06/22 [facility] [place] [facility] [facility] [place] [facility] En[facility] [id number] 06/28 [facility] [place] [facility] [facility] [place] [facility] En[facility] [id number] 07/14 [facility] [place] [facility] [place] Social History Combined list of available smoking, tobacco, and other social history from Department of Defense and Veterans Affairs facilities. Social History Type Response Date Comment Sour e Tobacco smoking status [facility] VA-TOBACCO USE FORMER CIGARETTES 04/20/2024 [facility] [place] [facility] History of tobacco use VA-TOBACCO USE EVERY DAY OTHER PRODUCT 04/20/2024 marijuana [facility] [place] [facility] History of tobacco use VA-TOBACCO NEVER USED 03/05/2023 [facility] [place] [facility] History of tobacco use VA-TOBACCO NEVER USED 12/24/2021 [facility] [place] [facility] History of tobacco use VA-TOBACCO NEVER USED 12/28/2020 [facility] History of tobacco use IA-TOBACCO FORMER USER 12/21/2019 [facility] History [facility] tobacco use IA-TOBACCO FORMER USER 05/18/2018 [facility] History of tobacco use QUIT TOBACCO USE > 7 YEARS AGO 11/02/2017 [facility] History of tobacco use QUIT TOBACCO USE > 7 YEARS AGO 11/04/2016 [facility] History of tobacco use QUIT TOBACCO USE > 7 YEARS AGO 09/21/2015 . [facility] History of tobacco use QUIT TOBACCO USE > 7 YEARS AGO 01/17/2013 . [facility] Plan of Care List of future care activities from Department of Veterans Affairs facilities. Additional future care activities may be listed in the Assessment and Plan section. Date/Time Care Activity Care Activity Detail Facili ty 08/03/2024 AMBULATORY - MEDICINE AMBULATORY - MEDICI NE [facility]
[2024-08-16 16:03] VITALS: BMI 31.1
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
[2024-08-18 11:35] VITALS: BP 143/61; PULSE 76; RESP 16; TEMP 36.5; O2SAT 97
[2024-08-18] MEDS: Lactated Ringers 1,000 ML 100 ML IVCONT (11:38)
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
[2024-08-18 13:24] VITALS: BP 88/42; PULSE 68; RESP 16; TEMP 36.8; O2SAT 96
[2024-08-18 13:39] VITALS: BP 105/54; PULSE 68; RESP 16; TEMP 36.6; O2SAT 100
--- NOTE | 2024-08-18 13:39 | P.OPN-COLO_ITS ---
Colonoscopy Operative Note Operative Note Date of Service: 08/18/24 Narrative: Procedure: Colonoscopy Indication: Personal history of polyps Endoscopist: Pili Cordova MD Anesthesia Provider: Dr Jackelyn Haas Anesthesia type: MAC Instrument: Olympus [id number]-H190L Consent: Indication, risks vs benefits, and alternatives were discussed with the patient who gave written informed consent to proceed. EKG, pulse, pulse oximetry and blood pressure were monitored throughout the procedure. Please see anesthesia flowsheet. Procedure: The patient was brought to the procedure room and placed in the left lateral decubitus position. IV medications were administered by the anesthesia provider in attendance. A digital rectal exam was performed which was normal. A distal attachment cap was affixed to the tip of the colonoscope which was then inserted through the anus and advanced through the colon to the cecum at 75 cm,and terminal ileum. Appendiceal orifice and ileocecal valve were identified. Mucosa was carefully examined under high definition white light as the instrument was slowly withdrawn in a retrograde panoramic fashion. Retroflexion was performed in ascending colon and rectum. The procedure was not difficult. There were no immediate obvious complications. The quality of the prep was BBPS: 2+3+2 = adequate Withdrawal time 7 minutes. Limitations: No limitations. Findings: Mucosa: Normal to cecum and terminal ileum. Protruding lesions: * 2 sessile polyp of size 2-3 mm in cecum. Cold snare polypectomy was performed. The polyp was completely removed and retrieved. * Medium internal hemorrhoids without stigmata of recent bleeding. Excavated lesions: * Mild to moderate diverticulosis of sigmoid colon. Impression: 1. Normal colon mucosa 2. Total of 2 polyps removed 3. Diverticulosis 4. Internal hemorrhoids Recommendations: - Follow path results. - Repeat colonoscopy in 7 years if patient is in good health.
--- NOTE | 2024-08-18 15:02 | HO.POSTANES ---
Post Anesthesia Evaluation Post Anesthesia Evaluation Date of Service: 08/18/24 Vital Signs: Vital Signs Temp Pulse Resp BP Pulse Ox O2 Del Method 08/18/24 13:39 98 F 68 16 105/54 L 100 Room Air 08/18/24 13:24 98.2 F 68 16 88/42 L 96 Room Air 08/18/24 11:35 97.7 F 76 16 143/61 H 97 Room Air Anesthesia: Monitored Mental Status: Awake Pain Control: Satisfactory Nausea/Vomiting: None Hydration: Adequate Anesthesia-Related Issues: No Anes. Related Issues
== END 2024-08-18 14:28 | disposition home or self-care (01) ==
PROVIDERS: PCP Physician Assistant; Visit Provider Internal Medicine
PROC: 0DJD8ZZ Inspection of Lower Intestinal Tract, Via Natural or Artificial Opening Endoscopic (ICD-10-PCS; CPT 45378; principal; 2024-08-18 13:10)
DX: Z12.11 Encounter for screening for malignant neoplasm of colon (principal); Z86.0101 Personal history of adenomatous and serrated colon polyps; D12.0 Benign neoplasm of cecum; K57.30 Diverticulosis of large intestine without perforation or abscess without bleeding; K64.8 Other hemorrhoids; K86.2 Cyst of pancreas; I10 Essential (primary) hypertension; E78.00 Pure hypercholesterolemia, unspecified; M10.9 Gout, unspecified; Z79.899 Other long term (current) drug therapy; Z98.890 Other specified postprocedural states
CPT/HCPCS: 45385; 88305; J2003; J2704

== ENCOUNTER → 2024-08-18 10:36 | Outpatient (BNV) | payer OTHER, SELFPAY | PROVIDERS: PCP Physician Assistant; Visit Provider Internal Medicine | DX: Z12.11 Encounter for screening for malignant neoplasm of colon (principal); Z86.0100 Personal history of colon polyps, unspecified; D12.0 Benign neoplasm of cecum; K57.30 Diverticulosis of large intestine without perforation or abscess without bleeding; K64.8 Other hemorrhoids | CPT/HCPCS: 45385 ==